=== PATIENT | female | born 1985 | race Caucasian/White ===

== ENCOUNTER 2024-01-22 06:49 | Inpatient (IN) ==
[2024-01-22] MEDS ORDERED: LIDOCAINE 1% LOCAL 20 ML VIAL INFIL PRN (07:28)
[2024-01-22] MEDS ORDERED: OXYTOCIN 30 UNITS/NSS 30 UNITS/500 ML BAG IV PRN ×2 (07:28→18:49)
--- NOTE | 2024-01-22 07:36 | Labor Progress Brief Note ---
Date of Service January 22, 2024 Physical Exam Genitourinary: Manual OB Exam: + cervical dilation 1 cm, + cervical effacement 80%, + station high and + amniotic fluid clear OB Exam Monitor Tracing: + external FHT monitor used, + external uterine monitor used, + category I and + normal FHT variability Results & Data Vital Signs (Past 12 Hours) Vital Signs Pulse BP 01/22/24 07:20 90 119/80
--- NOTE | 2024-01-22 07:40 | History & Physical Report ---
Date of Service January 22, 2024 Assessment & Plan (1) Term : Plan: admit to labor and delivery History of Present Illness Chief Complaint: ruptured membranes Primary Care Provider: Sally Hogan MD 38 F P0020 at 38.6 with SROM and onset of labor this morning. GBS is negative. Allergies Allergy/AdvReac Type Severity Reaction Status Date / Time No Known Allergies Allergy Unverified 01/21/24 23:31 Home Medications Medication Instructions Recorded Confirmed Type Lactobacillus comb cap PO 01/21/24 History no.3-ADF-fuxbthfqcw 300 million cell-250 mg capsule (Probiotic and Acidophilus) blood sugar diagnostic (OneTouch 01/21/24 01/21/24 History Verio test strips) blood-glucose meter (OneTouch 01/21/24 01/21/24 History Verio Flex Meter) escitalopram oxalate 10 mg tablet 10 mg PO DAILY 01/21/24 01/21/24 History (Lexapro) ferrous sulfate 325 mg (65 mg 325 mg PO DAILY 01/21/24 01/21/24 History iron) tablet lancets 30 gauge 01/21/24 01/21/24 History vit no.95-ferrous 1 tab PO DAILY 01/21/24 01/21/24 History fumarate 28 mg-folic acid 800 mcg tablet () Patient History Medical History ASCUS with positive high risk HPV cervical Dysplasia of cervix Anemia Gestational diabetes mellitus (GDM) Depression Ectopic Surgical History History of salpingectomy Social History Smoking Status: Former smoker Tobacco Type: E-cigarettes / Vaping Second Hand Exposure: No; Hx Alcohol Use: No Hx Substance Use: No Preferred Language: Chinese Communication Ability: Effective Gastrointestinal Technician Required: No Beliefs That Will Affect Care: None marital status: Current Living Situation: Spouse Current Living Situation Comment: Zhang- Other Information That Helps Us Care for You: No Feels Safe at Home: Yes Assistive Devices: Glasses OB History 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 ectopic salpingectomy Review of Systems All systems reviewed & are unremarkable except as noted in HPI & below Physical Exam Constitutional: WD/WN, vitals as above Cardiovascular: Rate/Rhythm: regular rate and regular rhythm Musculoskeletal: Extremities: extremities normal to inspection Skin: no rashes, warm and dry Neurologic: patellar DTR's 2+ bilat, sensation intact Psychiatric: A+Ox3, euthymic affect Genitourinary: no vaginal lesions, no adnexal mass OB Exam Abdomen: + fundal height and + vertex Manual OB Exam: + cervical dilation 1 cm, + cervical effacement 80%, + station high and + amniotic fluid clear OB Exam Monitor Tracing: + external FHT monitor used, + external uterine monitor used, + category I and + normal FHT variability Results & Data Vital Signs (Past 12 Hours) Vital Signs Pulse BP 01/22/24 07:20 90 119/80 Code Status & VTE Plan VTE Prophylaxis Plan VTE Prophylaxis will be ordered: No Monitoring External Monitor Cat 1
--- NOTE | 2024-01-22 08:20 | Obstetrical Progress Note ---
Date of Service January 22, 2024 Assessment & Plan Admission and Anticipated Discharge Date Admission Date: January 22, 2024 Subjective Patient is a 38 yo at 38.6 wks, admitted by Dr Rivas for SROM at 03:30 am, clear Feels ctxs q 3-4 min, no very painful Her cevix was checked and was 1cm/ 80%/-3, I performed bed side US: Vertex, placenta posterior I reviewed her records and comfirmed with her GDMA1, diet controlled GDM Depression, on Lexapro, stable AMA h/o ectopic GBS neg No h/o genital HSV, Chlamydia, Gonorrhea FHR categ I [place] ctxs q 3-4 min Discussed the findings and recommended Oxytocin per protocol Patient agrees with plan Results & Data Vital Signs (Past 12 Hours) Vital Signs Temp Pulse Resp BP 01/22/24 07:29 36.9 C 18 119/80 01/22/24 07:20 90 119/80
[2024-01-22] MEDS: LACTATED RINGER'S 1,000 ML IV PRN (08:35)
[2024-01-22] MEDS: OXYTOCIN 30 UNITS/NSS 30 UNITS/500 ML BAG IV PRN (08:36)
[2024-01-22 08:45] LABS: Hemoglobin 12.7 g/dl (12.0-16.0); Mean Corpuscular Hemoglobin 30.3 pg (25.0-34.0); Mean Corpuscular Hgb Conc 33.4 g/dL (32.0-36.0); Mean Corpuscular Volume 90.7 fL (80.0-100.0); Mean Platelet Volume 9.1 fL (9.4-12.4); Platelet Count 255 K/uL (130-400); RDW Coefficient of Variation 14.3 % (11.5-14.5); Red Blood Count 4.19 M/uL (4.20-5.40)
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
--- OUTSIDE RECORDS SUMMARY | 2024-01-22 10:32 | External Medical Summary | Summary of Care ---
Author Name Unknown Organization [facility] Address [address] [facility] [place] [address] Phone [phone] Care Team Providers Care Outsewer Name Role Phone Unavailable Primary Care Provider Unavailabl e Encounter Details Date Type Department Care Team (Late st Contact Info) Description 01/17/2024 Telephone [facility]necology/[facility]stetrics[facility] [address] [facility] [place] [address] Lamont Pérez MD [address] [place] [phone] Allergies Active Allergy Reactions Criticality Noted Date Comments No Known Drug Allergy 08/08/2010 documented as of this encounter (statuses as of 01/17/2024) Medications Medication Sig Dispensed Refills Start Date [...] the morning. 90 Tablet 1 08/03/2023 Active [employer] Flex System w/Device KitIndications:Diet controlled gestational diabetes mellitus (GDM) in third trimester Use to test blood sugars 4 times daily (fasting, 1 hour after breakfast, lunch, and dinner) 1 Kit 0 11/13/2023 Active [employer] Verio In Vitro Strip (Glucose Blood)Indications:Diet controlled gestational diabetes mellitus (GDM) in third trimester Use to test blood sugars 4 times daily (fasting, 1 hour after breakfast, lunch, and dinner) 125 Strip 6 11/13/2023 Active [employer] Delica Lancets 30GIndications:Diet controlled gestational diabetes mellitus [...] as of this encounter (statuses as of 01/17/2024) Active Problems Problem Noted Date Diagnosed Date [...] 01/13/24: RPM reviewed; stable. Continue diet control. Last [...] Recommend nutrition consult with RDN (Registered Dietitian Telecom Sales Consultant). Lifestyle changes are also indicated including optimizing [...] magm Adjustment disorder with depressed mood 08/08/20 ADVANCE DIRECTIVE INFORMATION 01/07/2006 Overview: Not applicable (under age of 18) Severe Acne 09/30/2002 Overview: OCP, Tazorac .1% gel once a day Primary Care Provider could refill this medication if Acne is stable but not for use during . Estimated Date of Delivery Comme nts Yes 01/30/2024 Based on Ultraso und documented as of this encounter (statuses as of 01/17/2024) Resolved Problems Problem Noted Date Diagnosed Date [...] as of this encounter (statuses as of 01/17/2024) Immunizations Name Administration Dates Next Due Covid-19 [...] money to buy more. Never true 06/17/20 23 Within the past 12 months, t he food you bought just didn't last and you didn't have money to get more. Never true 06/17/2023 [place] Depression Scale Answer Date Recorded [place] Depression Scale Total 7 01/08/2024 The thought [...] encounter Miscellaneous Notes * Telephone Encounter - Chica Ordoñez RN - 01/17/2024 12:20 PM EDT T/C from pt requesting to schedule 39 week appt. Requesting to be seen on 01/23/2024 d/t being 39 weeks that day and she would like her membranes stripped at her appt. No appts found to suit pt. Please call pt to assist. Jacob's pt. documented in this encounter Plan of Treatment Upcoming Encounters Date Type Department Care Team (Late st Contact Info) Description 01/28/2024 10:15 AM EDT Office Visit Gynecology/Obstetrics [facility] [address] [place] [address] Mame Pham CRNP [address] [place] [address] 02/25/2024 12:40 PM EDT Office Visit [facility] [place], [place] [address] [place] [phone] Milana Marques PA-C [address] [place] [address] Health Maintenance Due Date Last Done Comments Depression Screening 08/05/2021 08/05/2020 COVID-19 Vaccine (2022- season) 2023 01/19/2021 Diabetes Screening 06/12/2026 06/12/2023, [...]
--- OUTSIDE RECORDS SUMMARY | 2024-01-22 10:32 | External Medical Summary | Summary of Care ---
Author Name Unknown Organization [facility] Address [address] [facility] [place] [address] Phone [phone] Care Team Providers Care Clinical Academic Allergist Name Role Phone Unavailable Primary Care Provider Unavailabl e Reason for Visit * Reason Onset Date Comments Appointment 01/17/2024 Encounter Details Date Type Department Care Team (Late st Contact Info) Description 01/17/2024 Telephone Gynecology/Obstetrics, [place] [address] [facility] [place] [address] Lamont Pérez MD [address] [place] [address] Appointment Allergies Active Allergy Reactions Criticality Noted Date [...] the morning. 90 Tablet 1 08/03/2023 Active [employer] Verio Flex System w/Device KitIndications:Diet controlled gestational diabetes mellitus (GDM) in third trimester Use to test blood sugars 4 times daily (fasting, 1 hour after breakfast, lunch, and dinner) 1 Kit 0 11/13/2023 Active [employer] Verio In Vitro Strip (Glucose Blood)Indications:Diet controlled gestational diabetes mellitus (GDM) in third trimester Use to test blood sugars 4 times daily (fasting, 1 hour after breakfast, lunch, and dinner) 125 Strip 6 11/13/2023 Active [employer] Delica Lancets 30GIndications:Diet controlled gestational diabetes mellitus [...] Recommend nutrition consult with RDN (Registered Dietitian Industrial Registered Nurse). Lifestyle changes are also indicated including optimizing [...] Next Due Covid-19 Ad26, Single Dose (Varsha/J&J) 01/19/2021 DTaP Dipth/Tet/Acell Pertussis (Infanrix), Peds 04/26/1993,05/31/1989,04/27/1988,1987,1987 HIB PRP-T, 4 dose (ActHib) 05/31/1989 Hepatitis B, 0-19 yrs 08/08/1998,03/07/1998,04/0 03/1998 MMR - Measles/Mumps/Rubella Vaccine 04/26/1993,0 02/15/1989 OPV - Polio Virus Vaccine (Oral) 993,05/31/1989,04/27/1988,1987,1987 PPD 10/26/1988 Seasonal Influenza, PF, 6 M & above, IM , (FluLaval or Fluzone) 08/13/2023,08/07/2021,08/05/2020 Seasonal Influenza, Split, I IV3, With Preserve, Inj 10/18/2006 TD - Tetanus/Diptheria (ADULT) 11/07/1998 TD, Preservative Free 08/05/2020 TDAP (age 10 [...] money to get more. Never true 06/17/2023 [place] Depression Scale Answer Date Recorded [place] Depression Scale Total 7 01/08/2024 The thought [...] encounter Miscellaneous Notes * Telephone Encounter - Marcella Bergman, MED ASSIST - 01/21/2024 8:52 AM EDT Appt already scheduled for 01/22. * Telephone Encounter - Skye Ghotra OSA - 01/21/2024 8:17 AM EDT Marcella, look into this. I don't see anything available, maybe wait to see if we have a cancellation. I will keep watch also. * Telephone Encounter - Chica Ordoñez RN [...] EDT Office Visit Gynecology/Obstetrics [facility] [address] [place] [address] Mame Pham CRNP [address] [place] [address] 01/28/2024 10:15 AM EDT Office Visit Gynecology/Obstetrics [facility] [address] [place] [address] Mame Pham CRNP [address] [place] [address] 02/25/2024 12:40 PM EDT Office Visit [facility] [address] [facility] [place] [phone] Milana Marques PA-C [address] [place] [address] Health Maintenance Due Date Last Done Comments Depression Screening 08/05/2021 08/05/2020 COVID-19 Vaccine (2 - 2022- season) 2023 01/19/2021 Diabetes Screening 06/12/2026 06/12/2023, [...]
--- OUTSIDE RECORDS SUMMARY | 2024-01-22 10:32 | External Medical Summary | Summary of Care ---
Author Name Unknown Organization [facility] Address [address] [facility] [address] [place] [address] Phone [phone] Care Team Providers Care Stitcher Operator Name Role Phone Unavailable Primary Care Provider Unavailabl e Reason for Visit * Reason Onset Date Comments Appointment 01/17/2024 Encounter Details Date Type Department Care Team (Late st Contact Info) Description 01/17/2024 Telephone Gynecology/Obstetrics, [place] [address] [facility] [place] [address] Lamont Pérez MD [address] [place] [address] Appointment Allergies Active Allergy Reactions Criticality Noted [...] the morning. 90 Tablet 1 08/03/2023 Active ViblioTov2tel Verio Flex System w/Device KitIndications:Diet controlled gestational [...] and dinner) 125 Strip 6 11/13/2023 Active ViblioTouch Delica Lancets 30GIndications:Diet controlled gestational diabetes mellitus [...] Recommend nutrition consult with RDN (Registered Dietitian Regulatory Affairs Coordinator). Lifestyle changes are also indicated including optimizing [...] money to get more. Never true 06/17/2023 [place] Depression Scale Answer Date Recorded [place] Depression Scale Total 7 01/08/2024 The thought [...] encounter Miscellaneous Notes * Telephone Encounter - Skye Ghotra OSA - 01/21/2024 8:17 AM EDT Marcella, look into this. I don't see anything available, maybe wait to see if we have a cancellation. I will keep watch also. * Telephone Encounter - Chica Ordoñez, RN - 01/17/2024 12:20 PM EDT T/C [...] Gynecology/Obstetrics Ermias Samaniego [address] [place] [address] Mame Pham CRNP 132 [place] [address] 01/28/2024 10:15 AM EDT Office Visit Gynecology/Obstetrics Ermias Samaniego [address] [place] [address] Mame Pham CRNP [address] [place] [address] 02/25/2024 12:40 PM EDT Office Visit [facility] [place] [address] [place] [address] Milana Marques PA-C [address] [place] [phone] Health Maintenance Due Date Last Done Comments Depression Screening 08/05/2021 08/05/2020 COVID-19 Vaccine (2 - 3-24 season) 2023 01/19/2021 Diabetes Screening 06/12/2026 06/12/2023, [...]
--- OUTSIDE RECORDS SUMMARY | 2024-01-22 10:33 | External Medical Summary ---
Author Name Unknown Address Unknown Organization K01:[facility] [place] [address] [place] [address] Laboratory Report Ordering Provider Test Date Status RANDY GRADY 01/08/2024 11:56:04 Final Observation Date Value Abnormality Reference (Units ) Status Streptococcus agalactiae DNA [Presence] in Specimen by WINSTON with probe detection 01/08/2024 11:56:04 Negative Negative Final No Group B Streptococcus det ected by culture-enhanced PCR (amplified probe).
The collection of vaginal/rectal swab specimen combinations (FDA approved specimen type) is optimal for the detection of Group B Streptococcus. Single source collection (vaginal only or rectal only) or alternate specimen sources may lead to false negative results. Performing Location [facility] [place] [address] [place] [address]
--- OUTSIDE RECORDS SUMMARY | 2024-01-22 10:33 | External Medical Summary ---
Author Name Unknown Address Unknown Organization K0G:[facility] - [address] [place] [address] Laboratory Report Ordering Provider Test Date Status JANESSA,REINA 01/01/2024 15:16:51 Final Observation Date Value Abnormality Reference (Units ) Status Premature Rupture Membrane risk 01/01/2024 15:16:51 Negative Negative Final Performing Location [facility] - [address] [place] [address]
--- OUTSIDE RECORDS SUMMARY | 2024-01-22 10:33 | External Medical Summary | Summary of Care ---
Author Name Unknown Organization [facility] Address [address] [facility] [address] Phone [phone] Care Team Providers Care Logistical Engineer Name Role Phone Unavailable Primary Care Provider Unavailabl e Reason for Visit * Reason Comments DSMT Follow-Up Encounter Details Date Type Department Care Team (Late st Contact Info) Description 01/16/2024 1:00 PM EDT Telemedicine Jorje Rankin [address] [place] [address] Zoila Black, LIBRADO [address] [place] [address] Diet controlled gestational diabetes mellitus (GDM) in third trimester*; Supervision of high risk in third trimester; Obesity in , antepartum Allergies Active Allergy Reactions Criticality Noted Date Comments No Known Drug Allergy 08/08/2010 documented as of this encounter (statuses as of 01/16/2024) Medications Medication Sig Dispensed Refills Start Date [...] the morning. 90 Tablet 1 08/03/2023 Active Robosoft Technologiesio Flex System w/Device KitIndications:Diet controlled gestational diabetes mellitus (GDM) in third trimester Use to test blood sugars 4 times daily (fasting, 1 hour after breakfast, lunch, and dinner) 1 Kit 0 11/13/2023 Active Tang SongTouch TRUE linkswear In Vitro Strip (Glucose Blood)Indications:Diet controlled gestational diabetes mellitus (GDM) in third trimester Use to test blood sugars 4 times daily (fasting, 1 hour after breakfast, lunch, and dinner) 125 Strip 6 11/13/2023 Active Nexgence DelGood Eggs Lancets 30GIndications:Diet controlled gestational diabetes mellitus (GDM) [...] as of this encounter (statuses as of 01/16/2024) Active Problems Problem Noted Date Diagnosed Date [...] Recommend nutrition consult with RDN (Registered Dietitian Health And Safety Representative). Lifestyle changes are also indicated including optimizing [...] as of this encounter (statuses as of 01/16/2024) Resolved Problems Problem Noted Date Diagnosed Date [...] as of this encounter (statuses as of 01/16/2024) Immunizations Name Administration Dates Next Due Covid-19 [...] money to get more. Never true 06/17/2023 [place] Depression Scale Answer Date Recorded [place] Depression Scale Total 7 01/08/2024 The thought [...] on file documented as of this encounter Patient Instructions * Patient Instructions* Zoila Black RDN - 01/16/2024 1:22 PM EDT Participant will continue with present meal regimen and present schedule of glucose checks as doing. documented in this encounter Progress Notes * Zoila Black RDN - 01/16/2024 1:02 PM EDT DIABETES SELF-MANAGEMENT TRAINING/FOLLOW UP NOTE Name: Lisseth Longoria Date: 01/16/2024 Patient location: HOME. I was not in a hospital or clinic location. After connecting through Enteloo, patient was verified with two unique identifiers. Patient (or authorized legal outside energy sales representatives) was then informed that this was a Telemedicine visit and being conducted confidentially over secure lines. Methods to assure confidentiality were taken. Patient acknowledged consent and understanding of privacy and security of the Telemedicine visit. The patient agreed to participate. Last order of DIABETES MANAGEMENT EDUCATION (ADA) REFERRAL was found on 11/13/2023 from Refill on 11/13/2023 No order of CLINICAL NUTRITION AND DIABETES EDUCATION ANNUAL RENEWAL is found. No order of PEDIATRIC DIABETES MANAGEMENT EDUCATION (ADA) REFERRAL OP is found. ADA referral in place? Yes Participant scheduled for 1:1 training due to lack of classes scheduled within 2 months of appointment. What diabetes concerns and/or barriers to care would you like to discuss in your appointment: none Topics from last visit to attempt to cover today: none Was behavior objective from last visit met at least 80% of the time: Nutrition: Yes Psychosocial Screening: Lately have you been feeling down, depressed or hopeless most of the day? No Sleep Health: Addressed - How many hours are you sleeping during the night? 8 hours Do you have difficulty falling or staying asleep? Yes, staying asleep sometimes per participant Do you snore? Yes Are you waking up during the night with symptoms of low glucose levels (shaky, sweaty, nightmares)?No Are you waking up during the night to urinate frequently? Yes Diabetes Medications: None Monitoring blood glucose, interpreting and using results Self-Monitoring Blood Glucose Source of Information: Participant verbally reviewed from memory Frequency of tests: daily FBS 70's, highest at 77-78 After breakfast 130 After lunch ~110 After dinner 89-90's Hypoglycemia?: No Diet: Breakfast: yogurt, berries, high-protein granola, black coffee, water Snacks: protein or apple with PB Lunch: salad with chicken or tuna and whole grain crackers, or tuna salad or chicken sandwich on whole grain bread, raw carrots, water Snacks: protein bar or trail mix with dried cranberries and nuts Dinner: salmon or chicken, vegetables-green beans, water Snacks: hot plain raspberry leaf tea, protein bar or high-protein, low-carb ice cream bar Drinks: water, coffee in AM-plenty of fluids Restaurant meals: once or twice a week Weight management review: Wt Readings from Last 6 Encounters: 01/14/24 83 kg (183 lb) 01/08/24 84.4 kg (186 lb) 12/18/23 83.5 kg (184 lb) 12/05/23 83.3 kg (183 lb 9.6 oz) 11/21/23 83.5 kg (184 lb) 11/08/23 83.9 kg (185 lb) Weight changes since last visit: stable Physical Activity: Walking, going up and stairs and 5 minutes of squatting daily ADA STANDARDS OF CARE/BUNDLE MEASURES Diabetes Bundle / Standards of Care: Gestational Diabetes Participant Therapy Management Plan: Hypertension: BP Readings from Last 3 Encounters: 01/14/24 98/74 01/08/24 104/62 01/01/24 102/64 Gestational Diabetes Participant, being monitored by PSYCHOLOGICAL OPERATIONS. Dyslipidemia: Lab Results Component Value Date/Time LDL CHOLESTEROL (CALCULATED) - [facility] 116 (H) 07/04/2010 10:08 AM No components found for: "[id number]" Gestational Diabetes Mellitus Participant Kidney function review: Lab Results Component Value Date/Time ESTIMATED GLOMERULAR FILTRATION RATE - [facility] >90 11/12/2023 07:35 AM ESTIMATED GLOMERULAR FILTRATION RATE - [facility] >60.0 11/04/2020 08:38 AM ESTIMATED GLOMERULAR FILTRATION RATE - [facility] >60.0 07/04/2010 10:08 AM No results found for: "ALBUMIN / CREATININE RATIO", "ALBUMIN / CREATININE RATIO, URINE - [facility]" No results found for: "PROTEIN/ CREATININE RATIO", "PROTEIN/ CREATININE RATIO, URINE - [facility]" Gestational Diabetes Mellitus Participant DSMT/Diabetes MNT Diagnosis: Food and nutrition related knowledge deficit related to previous predicted limited knowledge of recommended diet as evidenced by previous encounter. DSMT Follow-up Assessment of Content Areas: Choose the answer that represents the participant's competency in ONLY topics assessed from previous visit and addressed today. Areas taught today must correlate with intervention. If content area not assessed and/or intervened today, it will be deferred to future session. Incorporating nutrition management into lifestyle: Comprehends king points (3) Incorporating physical activity into lifestyle: Comprehends king points (3) Monitoring blood glucose, interpreting and using results: Comprehends king points (3) Prevention, detection, and treatment of acute complications: Comprehends king points (3) Developing strategies to promote health/change behavior: Comprehends king points (3) DSMT/ Diabetes MNT intervention: Nutrition: Participant notes no issues with eating consistent meals and snacks. States she is trying to increase low-carb vegetables throughout the day in her meal pattern. States she is following the 8-10 hour rule between evening snack and breakfast the next day. States she has no problem gettingin between meal snacks when working. Acute Complications: Participant has no questions about Hypoglycemia handout forwarded to her following last GDM sessions (12/19/2023). She denies symptoms of hypoglycemia when FBS levels are in 70's. Participant Selected Behavioral Objective: Promoting health changes: To improve blood glucose control, I will continue with present meal regimen and present schedule of glucose checks as doing. Recommended Medication Changes: No changes. Education materials given to participant/caregiver and reviewed during today's visit: None given today Diabetes Self-Management Support:: Apps/Smart Phone Technology: Other (must add specific details): Current Health karie Possible Future Topics: Content areas that were not assessed in prior visits: All content areas have been assessed. Time Spent With Patient: Time in: 1:01 PM Time out: 1:16 PM Billing: MNT: 15 Minutes (8-22) Plan for Return: none. Participant declines offer of follow-up appointment. Encouraged pt to contact me via My G if any questions or concerns arise. All [facility] providers within the system are able to see [place] [employer] education and outcomes within the participant's electronic medical record. Zoila Black RDN, NUTRITION SERVICES [facility] Diabetes Care and Wholesale Parts Salesperson documented in this encounter Plan of Treatment Upcoming Encounters Date Type Department Care Team (Late st Contact Info) Description 01/21/2024 11:00 AM EDT Office Visit Gynecology/Obstetrics [facility] [address] [place] [address] Hannah Pal MD [address] [facility] [place] [address] 01/28/2024 10:15 AM EDT Office Visit Gynecology/Obstetrics [facility] [address] [place] [address] Mame Pham CRNP [address] [place] [address] 02/25/2024 12:40 PM EDT Office Visit [facility] [place] [address] [place] [phone] Milana Marques PA-C [facility] [place] [address] Health Maintenance Due Date Last Done Comments [...] Not on filedocumented as of this encounter Visit Diagnoses Diagnosis Diet controlled gestational diabetes mellitus (GDM) in third trimester- Primary Supervision of high risk in third trimester Unspecified high-risk Obesity in , antepartum Obesity complicating , childbirth, or the puerperium, antepartum condition or complication documented in this encounter Advance Directives Latest Code Status on File Code Status Date Activated Date Inactivated Comments Full Code 06/08/2021 11:52 PM 06/09/2021 5:44 AM This order reflects the patients wishes and were consensually agreed upon. Question Answer Comments Discussion of Advance Directives occurred with: Not Discussed
--- OUTSIDE RECORDS SUMMARY | 2024-01-22 10:33 | External Medical Summary | Summary of Care ---
Author Name Unknown Organization [facility] Address [address] [facility] [place] [address] Phone [phone] Care Team Providers Care Drying Supervisor Name Role Phone Unavailable Primary Care Provider Unavailabl e Reason for Visit * Reason Comments Return Visit Encounter Details Date Type Department Care Team (Late st Contact Info) Description 01/08/2024 11:30 AM EDT Office Visit Gynecology/Obstetric s Irishoang Samaniego [address] [place] [address] Naima Xavier CRNP [address] [place] [address] Supervision of high risk in third trimester*; Obesity in , antepartum; Depression complicating , antepartum; in third trimester with history of ectopic ; Multigravida of advanced maternal age in third trimester; COVID-19 affecting , antepartum; Diet controlled gestational diabetes mellitus (GDM) in third trimester; Antepartum anemia complicating Allergies Active Allergy Reactions Criticality Noted Date Comments No Known Drug Allergy 08/08/2010 documented as of this encounter (statuses as of 01/08/2024) Medications Medication Sig Dispensed Refills Start Date [...] the morning. 90 Tablet 1 08/03/2023 Active RedkneeTouch Verio Flex System w/Device KitIndications:Diet controlled gestational diabetes mellitus (GDM) in third trimester Use to test blood sugars 4 times daily (fasting, 1 hour after breakfast, lunch, and dinner) 1 Kit 0 11/13/2023 Active RedkneeToThuuz Verio In Vitro Strip (Glucose Blood)Indications:Diet controlled gestational diabetes mellitus (GDM) in third trimester Use to test blood sugars 4 times daily (fasting, 1 hour after breakfast, lunch, and dinner) 125 Strip 6 11/13/2023 Active RedkneeTouch Delica Lancets 30GIndications:Diet controlled gestational diabetes mellitus [...] as of this encounter (statuses as of 01/08/2024) Active Problems Problem Noted Date Diagnosed Date [...] Will review again next week 12/30/23-stable 01/06/24-stable Last Assessment & Plan: CONSIDERATIONS: Reviewed etiology [...] Recommend nutrition consult with RDN (Registered Dietitian Electron Beam Welder). Lifestyle changes are also indicated including optimizing [...] as of this encounter (statuses as of 01/08/2024) Resolved Problems Problem Noted Date Diagnosed Date [...] as of this encounter (statuses as of 01/08/2024) Immunizations Name Administration Dates Next Due Covid-19 [...] money to get more. Never true 06/17/2023 [place] Depression Scale Answer Date Recorded [place] Depression Scale Total 7 01/08/2024 The thought [...] on file documented as of this encounter Last Filed Vital Signs Vital Sign Reading Time Taken Comments Blood Pressure 104/62 01/08/2024 11:35 AM EDT Pulse - - Temperature - - Respiratory Rate - - Oxygen Saturation - - Inhaled Oxygen Concentration - - Weight 84.4 kg (186 lb) 01/08/2024 11:35 AM EDT Height - - Body Mass Index 36.33 01/01/2024 2:54 PM EDT documented in this encounter Progress Notes * Naima Xavier CRNP - 01/08/2024 11:36 AM EDT 36w6d Working with [facility] for GDM management. Glucose readings WNL. Baby is active. Some ctx, taper out. No bleeding/leaking. Discussed recommendation for IOL by 41 weeks given GDM. She requests an induction in the 39th week - aware that this is not medically indicated and she may be rescheduled for more urgent inductions. Had a unilateral salpingectomy; desires another for contraception, does not desire future . GBS today, return in 1 week. Bobbin Fixer Documentation Provider requested public records researcher. Name of public records researcher: SAVAGE Rosado LPN * Lashell Miller LPN - 01/08/2024 11:34 AM EDT 36w6d Denies vaginal bleeding/rom + movement No new concerns documented in this encounter Plan of Treatment Upcoming Encounters Date Type Department Care Team (Late st Contact Info) Description 01/14/2024 9:15 AM EDT Office Visit Gynecology/Obstetrics Ermias Coulters [address] [place] [address] Mame Pham CRNP [address] [place] [address] 01/16/2024 1:00 PM EDT Telemedicine Jorje Rankin [address] [place] [address] Zoila Black RDN [address] [place] [address] 01/21/2024 11:00 AM EDT Office Visit Gynecology/Obstetrics Iris Samaniego [address] [place] [address] Hannah Pal MD [address] [place] [address] [place] [address] 01/28/2024 10:15 AM EDT [facility] [address] [place] [address] Mame Pham CRNP [address] [place] [address] 02/25/2024 12:40 PM EDT Office Visit [facility], [place] [address] [place] [phone] Milana Marques PA-C [facility] [place] [phone] Pending Results Name Type Priority Associated Diagnoses Date /Time GROUP B STREP CULTURE/PCR Lab Routine Supervision of high risk in third trimester 01/08/2024 11:56 AM EDT Health Maintenance Due Date Last Done Comments [...] as of this encounter Visit Diagnoses Diagnosis Supervision of high risk in third trimester- Primary Unspecified high-risk Obesity in , antepartum Obesity complicating , childbirth, or the puerperium, antepartum condition or complication Depression complicating , antepartum Mental disorders of mother, antepartum in third trimester with history of ectopic Multigravida of advanced maternal age in third trimester COVID-19 affecting , antepartum Diet controlled gestational diabetes mellitus (GDM) in third trimester Antepartum anemia complicating Anemia, antepartum documented in this encounter Advance Directives Latest Code Status on File Code Status Date Activated Date Inactivated Comments Full Code 06/08/2021 11:52 PM 06/09/2021 5:44 AM This order reflects the patients wishes and were consensually agreed upon. Question Answer Comments Discussion of Advance Directives occurred with: Not Discussed
--- OUTSIDE RECORDS SUMMARY | 2024-01-22 10:33 | External Medical Summary | Summary of Care ---
Author Name Unknown Organization [facility] Address [address] [facility] [place] [address] Phone [phone] Care Team Providers Care Roof Shingler Name Role Phone Unavailable Primary Care Provider Unavailabl e Reason for Visit * Reason Comments Return Visit Encounter Details Date Type Department Care Team (Late st Contact Info) Description 01/08/2024 11:30 AM EDT Office Visit Gynecology/Obstetric s Irishoang Samaniego [address] [place] [address] Naima Xavier CRNP [address] [place] [address] Supervision of high risk in third trimester*; [...] the morning. 90 Tablet 1 08/03/2023 Active ApprissTouch Verio Flex System w/Device KitIndications:Diet controlled gestational diabetes mellitus (GDM) in third trimester Use to test blood sugars 4 times daily (fasting, 1 hour after breakfast, lunch, and dinner) 1 Kit 0 11/13/2023 Active ApprissToMoovly Verio In Vitro Strip (Glucose Blood)Indications:Diet controlled gestational diabetes mellitus (GDM) in third trimester Use to test blood sugars 4 times daily (fasting, 1 hour after breakfast, lunch, and dinner) 125 Strip 6 11/13/2023 Active ApprissTouch Delica Lancets 30GIndications:Diet controlled gestational diabetes mellitus [...] Recommend nutrition consult with RDN (Registered Dietitian Director Data Architecture). Lifestyle changes are also indicated including optimizing [...] money to get more. Never true 06/17/2023 [place] Depression Scale Answer Date Recorded [place] Depression Scale Total 7 01/08/2024 The thought [...] . GBS today, return in 1 week. Gas Appliance Servicer Documentation Provider requested metal caster. Name of metal caster: SAVAGE Rosado LPN * Lashell Miller LPN - 01/08/2024 11:34 AM EDT 36w6d Denies vaginal bleeding/rom + movement No new concerns documented in this encounter Plan of Treatment Upcoming Encounters Date Type Department Care Team (Late st Contact Info) Description 01/14/2024 9:15 AM EDT Office Visit Gynecology/Obstetrics Ermias Coulters [address] [place] [address] Mame Pham CRNP [address] [place] [address] 01/16/2024 1:00 PM EDT Telemedicine Jorje Rankin [address] [place] [address] Zoila Black RDN [address] [place] [address] 01/21/2024 11:00 AM EDT Office Visit Gynecology/Obstetrics Iris Samaniego [address] [place] [address] Hannah Pal MD [address] [place] [address] [place] [address] 01/28/2024 10:15 AM EDT [facility] [address] [place] [address] Mame Pham CRNP [address] [place] [address] 02/25/2024 12:40 PM EDT Office Visit [facility], [place] [address] [place] [phone] Milana Marques PA-C [facility] [place] [phone] Pending Results Name Type Priority Associated Diagnoses [...]
--- OUTSIDE RECORDS SUMMARY | 2024-01-22 10:33 | External Medical Summary | Summary of Care ---
Author Name Unknown Organization [facility] Address [address] [address] Phone [phone] Care Team Providers Care Procurement Services Manager Name Role Phone Unavailable Primary Care Provider Unavailabl e Reason for Visit * Reason Comments Return Visit Encounter Details Date Type Department Care Team (Late st Contact Info) Description 01/01/2024 2:45 PM EDT Office Visit Gynecology/Obstetric s Ermias Samaniego [address] [place] [address] Mame Pham CRNP [address] [place] [address] Supervision of high risk in third trimester*; Obesity in , antepartum; Depression complicating , antepartum; with history of ectopic , antepartum; Multigravida of advanced maternal age in third trimester; COVID-19 affecting , antepartum; Diet controlled gestational diabetes mellitus (GDM) in third trimester; Antepartum anemia complicating Allergies Active Allergy Reactions Criticality Noted Date Comments No Known Drug Allergy 08/08/2010 documented as of this encounter (statuses as of 01/01/2024) Medications Medication Sig Dispensed Refills Start Date [...] the morning. 90 Tablet 1 08/03/2023 Active HengZhiTouch Verio Flex System w/Device KitIndications:Diet controlled gestational diabetes mellitus (GDM) in third trimester Use to test blood sugars 4 times daily (fasting, 1 hour after breakfast, lunch, and dinner) 1 Kit 0 11/13/2023 Active HengZhiTouch Verio In Vitro Strip (Glucose Blood)Indications:Diet controlled gestational diabetes mellitus (GDM) in third trimester Use to test blood sugars 4 times daily (fasting, 1 hour after breakfast, lunch, and dinner) 125 Strip 6 11/13/2023 Active HengZhiTouch Delica Lancets 30GIndications:Diet controlled gestational diabetes mellitus [...] as of this encounter (statuses as of 01/01/2024) Active Problems Problem Noted Date Diagnosed Date [...] meals. Will review again next week 12/30/23-stable Last Assessment & Plan: CONSIDERATIONS: Reviewed etiology [...] Recommend nutrition consult with RDN (Registered Dietitian Physical Medicine Specialist). Lifestyle changes are also indicated including optimizing [...] as of this encounter (statuses as of 01/01/2024) Resolved Problems Problem Noted Date Diagnosed Date [...] as of this encounter (statuses as of 01/01/2024) Immunizations Name Administration Dates Next Due Covid-19 [...] money to get more. Never true 06/17/2023 [place] Depression Scale Answer Date Recorded [place] Depression Scale Total 7 11/21/2023 The thought of harming myself has occurred to me . Never 11/21/2023 Estimated Date of Delivery Comme nts Yes [...] Sign Reading Time Taken Comments Blood Pressure 102/64 01/01/2024 2:54 PM EDT Pulse - - Temperature - - Respiratory Rate - - Oxygen Saturation - - Inhaled Oxygen Concentration - - Weight - - Height 152.4 cm (5') 01/01/2024 2:54 PM EDT Body Mass Index - - documented in this encounter Progress Notes * Mame Pham CRNP - 01/01/2024 3:19 PM EDT 35w6d Here for acute visit. Messaged this morning with c/o contractions every 15 minutes and small amountof fluid leaking. Contractions lasted a few hours, no longer present. Has not had to wear a pad forthe leaking, reports this continues to be a small amount. Baby is active. Denies bleeding. ROM+ today. Uncertain position, was breech 3 weeks ago. Will get u/s for position check. Feltmaker Documentation Provider requested linux system admin. Name of linux system admin: SAVAGE Little * Britany Mendoza LPN - 01/01/2024 2:54 PM EDT 35w6d Leaking since this morning Ctxs every 15 mins this morning have tapered down this afternoon documented in this encounter Plan of Treatment Upcoming Encounters Date Type Department Care Team (Late st Contact Info) Description 01/02/2024 9:00 AM EDT [place] [address] [place] [address] 01/03/2024 11:30 AM EDT Office Visit Gynecology/Obstetrics [facility] [address] [place] [address] Katie Hong PA-C [address] [place] [address] 01/08/2024 11:30 AM EDT Office Visit Gynecology/Obstetrics [facility] [address] [place] [address] Naima Xavier CRNP [address] [place] [address] 01/14/2024 9:15 AM EDT Office Visit Gynecology/Obstetrics [facility] [address] [place] [address] Mame Pham CRNP [address] [place] [address] 01/16/2024 1:00 PM EDT Telemedicine [facility], [facility] [address] [facility] [place] [address] Zoila Black RDN [address] [place], [place] [address] 01/21/2024 11:00 AM EDT Office Visit Gynecology/Obstetric[facility] [address] [facility] [address] Hannah Pal MD [address] [place] [address] [place] [address] 01/28/2024 10:15 AM EDT Office Visit Gynecology/Obstetrics [facility] [address] [facility] [place] [address] Mame Pham CRNP [address] [place] [address] 02/25/2024 12:40 PM EDT Office Visit [facility] [address] [phone] Milana Marques PA-C [address] [place] [address] Pending Results Name Type Priority Associated Diagnoses Date /Time RUPTURE OF MEMBRANE Lab STAT Depression complicating , antepartum 01/01/2024 3:16 PM EDT Scheduled Orders Name Type Priority Associated Diagnoses Orde r Schedule RUPTURE OF MEMBRANE Lab STAT Depression complicating , antepartum Expected: 01/01/2024, Expires: 12/31/2024 US PREG LIMITED 1 OR MORE FETUSES Medical Imaging Routine Supervision of high risk in third trimester Expected: 01/01/2024 (Approximate), Expires: 01/31/2025 Health Maintenance Due Date Last Done Comments [...] , antepartum Mental disorders of mother, antepartum with history of ectopic , antepartum Multigravida of advanced maternal age in third [...]
--- OUTSIDE RECORDS SUMMARY | 2024-01-22 10:33 | External Medical Summary | Summary of Care ---
Author Name Unknown Organization [facility] Address [address] [address] [address] Phone [phone] Care Team Providers Care Marketing Communication Manager Name Role Phone Unavailable Primary Care Provider Unavailabl e Reason for Visit * Reason Comments Return Visit Encounter Details Date Type Department Care Team (Late st Contact Info) Description 01/14/2024 9:15 AM EDT Office Visit Gynecology/Obstetric s Ermias Samaniego [address] [place] [address] Mame Pham CRNP [address] [place] [address] Supervision of high risk in third trimester*; [...] as of this encounter (statuses as of 01/14/2024) Medications Medication Sig Dispensed Refills Start Date [...] the morning. 90 Tablet 1 08/03/2023 Active Radius NetworksTouch Verio Flex System w/Device KitIndications:Diet controlled gestational diabetes mellitus (GDM) in third trimester Use to test blood sugars 4 times daily (fasting, 1 hour after breakfast, lunch, and dinner) 1 Kit 0 11/13/2023 Active Radius NetworksTouch Verio In Vitro Strip (Glucose Blood)Indications:Diet controlled gestational diabetes mellitus (GDM) in third trimester Use to test blood sugars 4 times daily (fasting, 1 hour after breakfast, lunch, and dinner) 125 Strip 6 11/13/2023 Active Radius NetworksTouch Delica Lancets 30GIndications:Diet controlled gestational diabetes mellitus [...] as of this encounter (statuses as of 01/14/2024) Active Problems Problem Noted Date Diagnosed Date [...] Recommend nutrition consult with RDN (Registered Dietitian Mortgage Lender). Lifestyle changes are also indicated including optimizing [...] as of this encounter (statuses as of 01/14/2024) Resolved Problems Problem Noted Date Diagnosed Date [...] as of this encounter (statuses as of 01/14/2024) Immunizations Name Administration Dates Next Due Covid-19 [...] money to get more. Never true 06/17/2023 [place] Depression Scale Answer Date Recorded [place] Depression Scale Total 7 01/08/2024 The thought [...] Sign Reading Time Taken Comments Blood Pressure 98/74 01/14/2024 8:59 AM EDT Pulse - - Temperature - - Respiratory Rate - - Oxygen Saturation - - Inhaled Oxygen Concentration - - Weight 83 kg (183 lb) 01/14/2024 8:59 AM EDT Height 152.4 cm (5') 01/14/2024 8:59 AM EDT Body Mass Index 35.74 01/14/2024 8:59 AM EDT documented in this encounter Progress Notes * Mame Pham CRNP - 01/14/2024 9:13 AM EDT 37w5d Sent message yesterday asking to change IOL to 41 weeks- had originally asked for 39w. IOL changed to 02/05. No concerns. Baby is active. Had 2 contractions on Saturday, none since. Denies bleeding. Following with [facility] for GDMA1. SAVAGE Hercules documented in this encounter Nursing Notes * Sisi Ruvalcaba LPN - 01/14/2024 9:03 AM EDT 37w5d IOL scheduled 02/05. Denies concerns. documented in this encounter Plan of Treatment Upcoming Encounters Date Type Department Care Team (Late st Contact Info) Description 01/16/2024 1:00 PM EDT [facility] [address] [place] [address] Zoila Black RDN [address] [place] [address] 01/21/2024 11:00 AM EDT Office Visit Gynecology/Obstetrics [facility] [address] [place] [address] Hannah Pal MD [address] [place] [address] [place] [address] 01/28/2024 10:15 AM EDT Office Visit Gynecology/Obstetrics [facility] [address] [place] [address] Mame Pham CRNP [address] [place] [address] 02/25/2024 12:40 PM EDT [facility] [address] [place] [phone] Milana Marques PA-C [address] [facility] [address] [place] [address] Health Maintenance Due Date [...]
--- OUTSIDE RECORDS SUMMARY | 2024-01-22 10:34 | External Medical Summary | Summary of Care ---
Author Name Unknown Organization [facility] Address [address] [address] Phone [phone] Care Team Providers Care Auto Radio Mechanic Name Role Phone Unavailable Primary Care Provider Unavailabl e Reason for Visit * Reason Comments DSMT INITIAL Encounter Details Date Type Department Care Team (Late st Contact Info) Description 12/19/2023 11:00 AM [facility] [address] [place] [address] Zoila Black, LIBRADO [address] [place] [address] Diet controlled gestational diabetes mellitus (GDM) in third trimester*; Supervision of high risk in third trimester; Obesity in , antepartum Allergies Active Allergy Reactions Criticality Noted Date Comments No Known Drug Allergy 08/08/2010 documented as of this encounter (statuses as of 12/19/2023) Medications Medication Sig Dispensed Refills Start Date [...] the morning. 90 Tablet 1 08/03/2023 Active NEMOPTIC Flex System w/Device KitIndications:Diet controlled gestational diabetes mellitus (GDM) in third trimester Use to test blood sugars 4 times daily (fasting, 1 hour after breakfast, lunch, and dinner) 1 Kit 0 11/13/2023 Active NEMOPTIC In Vitro Strip (Glucose Blood)Indications:Diet controlled gestational diabetes mellitus (GDM) in third trimester Use to test blood sugars 4 times daily (fasting, 1 hour after breakfast, lunch, and dinner) 125 Strip 6 11/13/2023 Active [email or web address] Lancets 30GIndications:Diet controlled gestational diabetes mellitus (GDM) [...] as of this encounter (statuses as of 12/19/2023) Active Problems Problem Noted Date Diagnosed Date [...] elevations. Continue diet control. 12/09/2023- stable 12/16/23-stable Last Assessment & Plan: CONSIDERATIONS: Reviewed etiology [...] Recommend nutrition consult with RDN (Registered Dietitian Package Dye Stand Loader). Lifestyle changes are also indicated including optimizing [...] as of this encounter (statuses as of 12/19/2023) Resolved Problems Problem Noted Date Diagnosed Date [...] as of this encounter (statuses as of 12/19/2023) Immunizations Name Administration Dates Next Due Covid-19 Ad26, Single Dose (Varsha/J&J) 01/19/2021 DTaP Dipth/Tet/Acell Pertussis (Infanrix), Peds 04/26/1993,05/31/1989,04/27/1988,1987,1987 HIB PRP-T, 4 dose (ActHib) 05/31/1989 Hepatitis B, 0-19 yrs 08/08/1998,03/07/1998,04/03/1998 MMR - Measles/Mumps/Rubella Vaccine 04/26/1993,0 02/15/1989 OPV [...] money to get more. Never true 06/17/2023 [place] Depression Scale Answer Date Recorded [place] Depression Scale Total 7 11/21/2023 The thought [...] encounter Patient Instructions * Patient Instructions* Zoila Black, LIBRADO - 12/19/2023 11:54 AM EST Participant will aim for 2 servings of low-carb vegetables daily that you can tolerate. Include in meals and/or snacks throughout the day. documented in this encounter Progress Notes * Zoila Black RDN - 12/19/2023 11:07 AM EST DIABETES SELF-MANAGEMENT TRAINING/INITIAL NOTE Name: Lisseth Longoria Date: 12/19/2023 Patient location: HOME. I was not in a hospital or clinic location. After connecting through [employer], patient was verified with two unique identifiers. Patient (or authorized legal account manager sales representative) was then informed that this was a [...] like to discuss in your appointment: none In your words, what is diabetes? My insulin and glucose is not working as it should and my body isn't managing sugar correctly Do you know the risks of uncontrolled diabetes? Yes Do you believe that diabetes can be controlled? Yes Are you ready to make small changes to help with diabetes self-management: Yes What type of diabetes do you have? Gestational Diabetes Mellitus: Are you aware of the post- glucose screening recommendations? No Diabetes diagnosis year: 2023 Do you have a family history of diabetes? Yes Have you had any previous diabetes education? Yes, had GDM video class on 12/11/23 Support systems: Spouse Barriers to care: None Special Needs: None Psychosocial Screening: Lately have you been feeling down, depressed or hopeless most of the day? No How Do You Manage Stress? Has not identified a way to manage stress Food Insecurity: Within the past 12 months, I worried whether our food would run out before we got money to buy more. No Within the past 12 months, the food we bought just did not last and we did not have money to buy more. No Sleep Health: Addressed - How many hours are you sleeping during the night? 8-9 hours Do you have difficulty falling or staying asleep? No Do you snore? Yes Are you waking up during the night with symptoms of low glucose levels (shaky, sweaty, nightmares)?No Are you waking up during the night to urinate frequently? No Diabetes Medications: None Monitoring blood glucose, interpreting and using results Self-Monitoring Blood Glucose Source of Information: Participant verbally reviewed from memory Frequency of tests: daily, 4 times daily Post prandial breakfast ~ 130 Post prandial lunch and dinner 100-110's, recent level of 145 after eating Icelandic FBS 70-80, 54 Hypoglycemia?: Yes, participant has had 1 episodes in past 2 weeks. Treats hypoglycemia by: Eats any food choice available Diet: Describes typical diet history/24-hour recall Breakfast: parfait-Croatian yogurt, granola bar, berries, iced coffee with sugar- free syrup and sweetened creamer or egg with 1 slice of toast with butter Snacks: apple with PB Lunch: lunch meat-chicken or lunch meat sandwich with lettuce, tomato, cheese, and jimenez on a wrap or whole-grain bread or salad with shrimp or chicken with oil & garlic dressing, grapes and high-protein chips, water Snacks: protein bar-Larabar or Kind bar or lightly salted almonds and a tre Dinner: chicken and salsa with cheese, homemade guacamole and a few tortilla chips or salmon, vegetables, small portion of brown rice or tacos with corn tortillas or breakfast foods-eggs and avocado toast, Quest-low CHO, high-protein pizza on , water Snacks: protein bar, hot plain raspberry leaf tea Drinks: water with lemon or navajo or sparkling water, occasionally diet Coke on fqvr-riwq-fhxjtl perparticipant Restaurant meals: once a week Weight management review: Wt Readings from Last 6 Encounters: 12/18/23 83.5 kg (184 lb) 12/05/23 83.3 kg (183 lb 9.6 oz) 11/21/23 83.5 kg (184 lb) 11/08/23 83.9 kg (185 lb) 09/17/23 83 kg (183 lb) 08/19/23 81.6 kg (180 lb) Recent weight changes: stable recently Physical Activity: Cleaning, walking ADA STANDARDS OF CARE/BUNDLE MEASURES Diabetes Bundle / Standards of Care: Gestational Diabetes Participant Therapy Management Plan: Hypertension: BP Readings from Last 3 Encounters: 12/18/23 98/72 12/05/23 100/60 11/21/23 102/64 Gestational Diabetes Participant, being monitored by PLAYGROUND EQUIPMENT ERECTOR. Dyslipidemia: Lab Results Component Value Date/Time LDL CHOLESTEROL (CALCULATED) - [facility] 116 (H) 07/04/2010 10:08 AM Lab Results Component Value Date/Time TRIGLYCERIDES - [facility] 112 07/04/2010 10:08 AM CHOLESTEROL - [facility] 217 (H) 07/04/2010 10:08 AM CHOLESTEROL-HDL RATIO - [facility] 2.7 07/04/2010 10:08 AM HDL CHOLESTEROL - [facility] 79 (H) 07/04/2010 10:08 AM Gestational Diabetes Mellitus Participant Kidney function review: [...] URINE - [facility]" Gestational Diabetes Mellitus Participant DSMT Initial Visit Assessment of Content Areas: Choose the answer that represents the participant's competency in each area. All need to be assessed at initial. Areas taught must match intervention. If content area not assessed and/or intervened today, it will be deferred to future session. Diabetes disease process and treatment process: Needs review (2) Incorporating nutrition management into lifestyle: Comprehends king points (3) Incorporating physical activity into lifestyle: Needs review (2) Using medications safely: Needs instruction (1) Monitoring blood glucose, interpreting and using results: Comprehends king points (3) Prevention, detection, and treatment of acute complications: Needs instruction (1) Prevention, detection, and treatment of chronic complications: Needs review (2) Developing strategies to address psychosocial issues: Needs instruction (1) Developing strategies to promote health/change behavior: Needs instruction (1) DSMT/ Diabetes MNT intervention: Pathophysiology: Defined disease process. Reviewed issue with glucose levels and , specifically GDM. She notes a paternal grandmother with type 2 DM. Nutrition: Participant states she has been aiming for 45 grams of CHO's per meal. Notes elevated glucose levels when including iced coffee drink with her current breakfast. Also notes elevated post prandial levels after eating high- protein pasta and whole grain crackers. She has been reviewing nutrition labels for total grams of CHO's. Reviewed 10 hour rule with her; she states her evening snack and breakfast are 10 hours apart. She admits to not eating many low-CHO vegetables during her -states these are food aversions for her, especially cooked vegetables, ie, broccoli. States she wants to increase these in her meal regimen; encouraged her to choose other tolerated raw vegetables throughout the day. Discussed avoiding deli meats-encouraged her to heat them in the microwave for a minimum of 1 minute to kill potential bacteria in them. Also discussed avoiding saturated fats to keep insulin resistance down. Physical Activity: Educated on the role of physical activity on glucose control. Encouraged participant to do short sessions of walking after meals if post prandial glucose levels are above recommended target range. Monitoring: Participant notes checking glucose levels regularly as recommended. She is familiar with recommended target ranges for fasting and post-prandial glucose levels. She forwards her glucose levels to [facility] using the [employer] karie. Acute Complications: Taught rule of "15" to treat hypoglycemia. Participant Selected Behavioral Objective: Nutrition: To improve blood glucose control I will aim for 2 servings of low- carb vegetables daily that you can tolerate. Include in meals and/or snacks throughout the day. Recommended Medication Changes: No changes. Education materials given to participant/caregiver and reviewed during today's visit: None given today Diabetes Self-Management Support: Apps/Smart Phone Technology: Current Health Possible Future Topics: Content areas that were not assessed in first visit: All content areas have been assessed. Time Spent With Patient: Time in: 11:06 AM Time out: 11:55 AM Billing: DSMT: 30 Minutes Plan for Return: 01/16/2024 Participant provided with contact information for Diabetes Care and Covered Button Maker. All [facility] providers within the system are able to see [place] [employer] education and outcomes within the participant's electronic medical record. Zoila Black RDN, NUTR[facility] Diabetes Care and Covered Button Maker documented in this encounter Plan of Treatment Upcoming Encounters Date Type Department Care Team (Late st Contact Info) Description 01/03/2024 11:30 AM EDT Office Visit Gynecology/Obstetrics [facility] [address] [place] [address] Katie Hong PA-C [address] [place] [address] 01/16/2024 1:00 PM EDT Telemedicine Nutrition, [facility] [address] [place] [address] Zoila Black RDN [address] [place] [address] 02/25/2024 12:40 PM EDT Office Visit [facility] [address] [place] [phone] Milana Marques PA-C [address] [place] [address] Health Maintenance Due Date Last Done Comments [...]
--- OUTSIDE RECORDS SUMMARY | 2024-01-22 10:34 | External Medical Summary | Summary of Care ---
Author Name Unknown Organization [facility] [address] [address] Phone [phone] Care Team Providers Care Breaker Table Worker Name Role Phone Unavailable Primary Care Provider Unavailabl e Reason for Visit * Reason Comments DSMT INITIAL Encounter Details Date Type Department Care Team (Late st Contact Info) Description 12/19/2023 11:00 AM [facility] [address] [place] [address] Zoila Black, LIBRADO [address] [place] [phone] Diet controlled gestational diabetes mellitus (GDM) in [...] the morning. 90 Tablet 1 08/03/2023 Active [employer] Flex System w/Device KitIndications:Diet controlled gestational diabetes mellitus (GDM) in third trimester Use to test blood sugars 4 times daily (fasting, 1 hour after breakfast, lunch, and dinner) 1 Kit 0 11/13/2023 Active [employer] In Vitro Strip (Glucose Blood)Indications:Diet controlled gestational diabetes mellitus (GDM) in third trimester Use to test blood sugars 4 times daily (fasting, 1 hour after breakfast, lunch, and dinner) 125 Strip 6 11/13/2023 Active [employer] Lancets 30GIndications:Diet controlled gestational diabetes mellitus (GDM) [...] Recommend nutrition consult with RDN (Registered Dietitian Document Control Coordinator). Lifestyle changes are also indicated including [...] money to get more. Never true 06/17/2023 Bryant Depression Scale Answer Date Recorded Bryant Depression Scale Total 7 11/21/2023 The thought [...] * Patient Instructions* Zoila Black RDN - 12/19/2023 11:54 AM EST Participant will [...] hospital or clinic location. After connecting through televideo, patient was verified with two unique identifiers. 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 Treats hypoglycemia by: Eats any food choice available Diet: Describes typical diet history/24-hour recall Breakfast: parfait-Indian yogurt, granola bar, berries, iced coffee with [...] leaf tea Drinks: water with lemon or tangirnaq or sparkling water, occasionally diet Coke on [id number] perparticipant Restaurant meals: once a week Weight [...] 102/64 Gestational Diabetes Participant, being monitored by PRACTICING DERMATOLOGIST. Dyslipidemia: Lab Results Component Value Date/Time LDL [...] other tolerated raw vegetables throughout the day. Physical Activity: Educated on the role of physical activity on glucose control. Encouraged participant to do short sessions of walking after meals if post prandial glucose levels are above recommended target range. Monitoring: Participant notes checking glucose levels regularly as recommended. She is familiar with recommended target ranges for fasting and post-prandial glucose levels. She forwards her glucose levels to [facility] using the Current [employer] karie. Acute Complications: Taught rule of "15" [...] with contact information for Diabetes Care and Supervisor Firearms. All [facility] providers within the system are able to see [place] Diabetes [employer] education and outcomes within the participant's electronic medical record. Zoila Black RDN, NUTRITION SERVICES [facility] Diabetes Care and Supervisor Firearms documented in this encounter Plan of Treatment Upcoming Encounters Date Type Department Care Team (Late st Contact Info) Description 01/03/2024 11:30 AM EDT Office Visit Gynecology/Obstetrics [facility] [address] [place] [phone] Katie Hong PA-C [address] [place] [phone] 01/16/2024 1:00 PM EDT Telemedicine Nutrition, [facility] [address] [place] [address] Zoila Black, RDN [address] [place] [phone] 02/25/2024 12:40 PM EDT Office Visit Family [facility], [place] [address] [place] [phone] Milana Marques PA-C [address] [place] [phone] Health Maintenance Due Date Last Done Comments [...]
--- OUTSIDE RECORDS SUMMARY | 2024-01-22 10:35 | External Medical Summary | Summary of Care ---
Author Name Unknown Organization [facility] Address [address] [facility] [place] [address] Phone [phone] Care Team Providers Care Brothel Keeper Name Role Phone Unavailable Primary Care Provider Unavailabl e Reason for Visit * Reason Comments Return Visit Encounter Details Date Type Department Care Team (Late st Contact Info) Description 12/18/2023 11:30 AM EST Office Visit Gynecology/Obstetric s [facility] [address] [place] [address] Katie Hong PA-C [address] [place] [phone] Supervision of high risk in third trimester*; [...] as of this encounter (statuses as of 12/18/2023) Medications Medication Sig Dispensed Refills Start Date [...] the morning. 90 Tablet 1 08/03/2023 Active [employer]Touch Verio Flex System w/Device KitIndications:Diet controlled gestational diabetes mellitus (GDM) in third trimester Use to test blood sugars 4 times daily (fasting, 1 hour after breakfast, lunch, and dinner) 1 Kit 0 11/13/2023 Active [employer] Verio In Vitro Strip (Glucose Blood)Indications:Diet controlled gestational diabetes mellitus (GDM) in third trimester Use to test blood sugars 4 times daily (fasting, 1 hour after breakfast, lunch, and dinner) 125 Strip 6 11/13/2023 Active [employer]Touch Delica Lancets 30GIndications:Diet controlled gestational diabetes mellitus [...] as of this encounter (statuses as of 12/18/2023) Active Problems Problem Noted Date Diagnosed Date [...] Recommend nutrition consult with RDN (Registered Dietitian Appliance Painter And Refinisher). Lifestyle changes are also indicated including optimizing [...] 6-8 weeks . Antepartum anemia complicating 024 Dysplasia of cervix, low grade (KATIE 1) [...] as of this encounter (statuses as of 12/18/2023) Resolved Problems Problem Noted Date Diagnosed Date [...] as of this encounter (statuses as of 12/18/2023) Immunizations Name Administration Dates Next Due Covid-19 [...] money to get more. Never true 06/17/2023 [place] Depression Scale Answer Date Recorded [place] Depression Scale Total 7 11/21/2023 The thought [...] Sign Reading Time Taken Comments Blood Pressure 98/72 12/18/2023 11:32 AM EST Pulse - - Temperature - - Respiratory Rate - - Oxygen Saturation - - Inhaled Oxygen Concentration - - Weight 83.5 kg (184 lb) 12/18/2023 11:32 AM EST Height 152.4 cm (5') 12/18/2023 11:32 AM EST Body Mass Index 35.94 12/18/2023 11:32 AM EST documented in this encounter Progress Notes * Katie Hong PA-C - 12/18/2023 11:54 AM EST 33w6d GDM following with ADAPT remains A1. Repeat CBC today, on PO iron. Breech with last ultrasound, will continue to follow. Denies VB, LOF, contractions. Pos FM. Feels movements not always forceful kicks sometimes pushing out sensation. Reports does do [facility] no concerns for <10 movements in 2 hours. RTC in 2 weeks Katie Hong PA-C documented in this encounter Nursing Notes * Sisi Ruvalcaba LPN - 12/18/2023 11:46 AM EST 33w6g Given labor instructions Denies concerns documented in this encounter Plan of Treatment Upcoming Encounters Date Type Department Care Team (Late st Contact Info) Description 12/19/2023 11:00 AM EST Telemedicine Nutrition, [facility] [address] [place] [phone] Zoila Black RDN [address] [place] [phone] 01/03/2024 11:30 AM EDT Office Visit Gynecology/Obstetrics [facility] [address] [place] [phone] Katie Hong PA-C [address] [place] [phone] 02/25/2024 12:40 PM EDT Office Visit [facility] [address] [place] [phone] Milana Marques PA-C [address] [place] [phone] Pending Results Name Type Priority Associated Diagnoses Date /Time CBC WITH WBC DIFFERENTIAL AND ANEMIA REFLEX WORKUP Lab Routine Antepartum anemia complicating 12/18/2023 12:01 PM EST Scheduled Orders Name Type Priority Associated Diagnoses Orde r Schedule CBC WITH WBC DIFFERENTIAL AND ANEMIA REFLEX WORKUP Lab Routine Antepartum anemia complicating Expected: 12/18/2023, Expires: 12/18/2024 Health Maintenance Due Date Last Done Comments [...]
--- OUTSIDE RECORDS SUMMARY | 2024-01-22 10:35 | External Medical Summary | Summary of Care ---
Author Name Unknown Organization [facility] Address [address] [facility] [place] [address] Phone [phone] Care Team Providers Care Icer Hand Name Role Phone Unavailable Primary Care Provider Unavailabl e Reason for Visit * Reason Comments Return Visit Encounter Details Date Type Department Care Team (Late st Contact Info) Description 12/18/2023 11:30 AM EST Office Visit Gynecology/Obstetric s [facility] [address] [place] [phone] Katie Hong PA-C [address] [place] [address] Supervision of high risk in third trimester*; [...] the morning. 90 Tablet 1 08/03/2023 Active [employer] Verio Flex System w/Device KitIndications:Diet controlled gestational diabetes mellitus (GDM) in third trimester Use to test blood sugars 4 times daily (fasting, 1 hour after breakfast, lunch, and dinner) 1 Kit 0 11/13/2023 Active [employer] Verio In Vitro Strip (Glucose Blood)Indications:Diet controlled gestational diabetes mellitus (GDM) in third trimester Use to test blood sugars 4 times daily (fasting, 1 hour after breakfast, lunch, and dinner) 125 Strip 6 11/13/2023 Active [employer] Lancets 30GIndications:Diet controlled gestational diabetes mellitus [...] Recommend nutrition consult with RDN (Registered Dietitian Recreation Worker). Lifestyle changes are also indicated including optimizing [...] money to get more. Never true 06/17/2023 [place] Depression Scale Answer Date Recorded [place] Depression Scale Total 7 11/21/2023 The thought [...] Team (Late st Contact Info) Description 12/18/2023 12:40 PM EST Laboratory Laboratory, [facility] [address] [place] [phone] [facility] [address] [place] [address] Antepartum anemia complicating 12/19/2023 11:00 AM EST Telemedicine Nutrition, [facility] [address] [place] [address] Zoila Black, LIBRADO [address] [place] [address] 01/03/2024 11:30 AM EDT Office Visit Gynecology/Obstetri [facility] [address] [place] [address] Katie Hong PA-C [address] [place] [address] 02/25/2024 12:40 PM EDT Office Visit [facility] [address] [place] [phone] Milana Marques PA-C [address] [place] [address] Pending Results Name Type Priority Associated Diagnoses [...] third trimester Antepartum anemia complicating Anemia, antepartum Antepartum anemia complicating Anemia, antepartum documented in this encounter Advance Directives Latest Code Status on File Code Status Date Activated Date Inactivated Comments Full Code 06/08/2021 11:52 PM 06/09/2021 5:44 AM This order reflects the patients wishes and were consensually agreed upon. Question Answer Comments Discussion of Advance Directives occurred with: Not Discussed
--- OUTSIDE RECORDS SUMMARY | 2024-01-22 10:35 | External Medical Summary | Summary of Care ---
Author Name Unknown Organization [facility] [address] [facility] [address] Phone [phone] Care Team Providers Care Manager Business Operations Name Role Phone Unavailable Primary Care Provider Unavailabl e Reason for Visit * Reason Comments DSMT INITIAL * Evaluate & Treat - Unlimited Visits (Within 10 days (routine)) - Pending Review Specialty Diagnoses / Procedures Referred By Conterick t Referred To Contact Medical Equipment Sales / Nutrition Services Diagnoses Diet controlled gestational diabetes mellitus (GDM) in third trimester Naima Xavier CRNP [address] [place] [address] Referral ID Status Reason Start Date Expiration Date Visits Requested Visits Authorized [id number] Pending Review Specialty Services Required 11/13/[phone] Encounter Details Date Type Department Care Team (Late st Contact Info) Description 12/11/2023 8:00 AM EST Telemedicine Virtual, Nutrition Services [address] [place] [address] Cheli Thorne, LIBRADO [address] [place] [address] DAVID Styles [phone] Diet controlled gestational diabetes mellitus (GDM) in third trimester*; Supervision of high risk in third trimester; Obesity in , antepartum; Depression complicating , antepartum; COVID-19 affecting , antepartum; Antepartum anemia complicating Allergies Active Allergy Reactions Criticality Noted Date Comments No Known Drug Allergy 08/08/2010 documented as of this encounter (statuses as of 12/11/2023) Medications Medication Sig Dispensed Refills Start Date [...] the morning. 90 Tablet 1 08/03/2023 Active [employer]in Flex System w/Device KitIndications:Diet controlled gestational diabetes mellitus (GDM) in third trimester Use to test blood sugars 4 times daily (fasting, 1 hour after breakfast, lunch, and dinner) 1 Kit 0 11/13/2023 Active [employer]in In Vitro Strip (Glucose Blood)Indications:Diet controlled gestational diabetes mellitus (GDM) in third trimester Use to test blood sugars 4 times daily (fasting, 1 hour after breakfast, lunch, and dinner) 125 Strip 6 11/13/2023 Active Vestmark Delica Lancets 30GIndications:Diet controlled gestational diabetes mellitus [...] as of this encounter (statuses as of 12/11/2023) Active Problems Problem Noted Date Diagnosed Date [...] PP elevations. Continue diet control. 12/09/2023- stable Last Assessment & Plan: CONSIDERATIONS: Reviewed etiology [...] Recommend nutrition consult with RDN (Registered Dietitian Legal Writing Professor). Lifestyle changes are also indicated including optimizing [...] Dysplasia of cervix, low grade (KATIE 1) Overview: Repeat pap 10/2024 COVID-19 affecting , [...] as of this encounter (statuses as of 12/11/2023) Resolved Problems Problem Noted Date Diagnosed Date [...] as of this encounter (statuses as of 12/11/2023) Immunizations Name Administration Dates Next Due Covid-19 [...] money to get more. Never true 06/17/2023 [place] Depression Scale Answer Date Recorded [place] Depression Scale Total 7 11/21/2023 The thought [...] this encounter Patient Instructions * Patient Instructions* Kelly Joshi RDN - 12/11/2023 8:06 AM EST Nutrition: To improve blood glucose control I will follow meal plan of Breakfast: 15-30 grams carbohydrate Snack: 15-30 grams carbohydrate Lunch: 30-60 grams carbohydrate Snack: 15-30 grams carbohydrate Dinner: 30-60 grams carbohydrate Bedtime snack: 15-30 grams carbohydrate documented in this encounter Progress Notes * Kelly Joshi RDN - 12/11/2023 8:06 AM EST DIABETES SELF-MANAGEMENT TRAINING Gestational Diabetes Group Session Name: Lisseth Longoria Date: 12/11/2023 Patient location: HOME. I was in a hospital or clinic location. After connecting through [employer],patient was verified with two unique identifiers. 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 Methods to assure confidentiality were taken. Patient acknowledged consent and understanding of pr ivacy and security of the Telemedicine visit. The patient agreed to participate. ADA referral in place? Yes What diabetes concerns and/or barriers to care would you like to discuss in your appointment: Diabetes with gestational diabetes. Here for education. What is gestational diabetes? When do I test my blood sugar? Will I need medication for gestational diabetes? What diet do I follow for gestational diabetes? What does exercise do to my blood sugar? Will this go away for me and the baby? What type of diabetes to you have? Gestational Diabetes DSMT Initial Visit Assessment of Content Areas: Choose the answer that represents the participant's competency in each area. All need to be assessed at initial. Areas taught must match intervention. If content area not assessed and/or intervened today, it will be deferred to future session. Diabetes disease process and treatment process: Needs instruction (1) Incorporating nutrition management into lifestyle: Needs instruction (1) Incorporating physical activity into lifestyle: Needs instruction (1) Using medications safely: Needs instruction (1) Monitoring blood glucose, interpreting and using results: Needs instruction (1) Prevention, detection, and treatment of acute complications: Needs instruction (1) Prevention, detection, and treatment of chronic complications: Needs instruction (1) Developing strategies to address psychosocial issues: Needs instruction (1) Developing strategies to promote health/change behavior: Needs instruction (1) Nutrition Diagnosis: Food and Nutrition Related Knowledge Deficit related to limited prior nutrition- related education as evidenced by referral to be seen for gestational diabetes and enrolled in group session for education. DSMT/ Diabetes MNT intervention: Pathophysiology: Defined disease process. Nutrition: GDM nutrition: Educated on rationale and guidelines of nutritional management of GDM. Emphasis on need for carbohydrate control/consistency with structured meal schedule. Taught participant how to read a food label. Importance of also meeting nutritional needs of reinforced. Stressed importance of avoiding sugar sweetened beverages, fruit juices. Encouraged bedtime snack 8-10 hours before fasting test the next day. Recommended starting meal pattern provided = Breakfast: 15-30 grams carbohydrate Snack: 15-30 grams carbohydrate Lunch: 30-60 grams carbohydrate Snack: 15-30 grams carbohydrate Dinner: 30-60 grams carbohydrate Bedtime snack: 15-30 grams carbohydrate Physical Activity: Educated on the role of physical activity on glucose control. Educated on the options for physical activity given participant's diabetes complications or other health issues. Medication: Reviewed that due to hormonal insulin resistance in , there may be a need for medication to achieve blood glucose levels in target. Monitoring: blood glucose and targets: Educated on blood glucose monitoring and recommended testing times of fasting and 1-OR 2-hour post meals with targets of less than 95 fasting, 1-hour post meal ofless than 140 OR 2-hour post meal of less than 120. Encouraged logging blood glucoses and reported readings 1 time weekly to care team. Chronic Complications: Educated on the risks of uncontrolled blood glucose during and post for mom and /. Promote health/Change behavior: : Educated on the effects of diabetes prior to and during . Reviewed importance of glucose screening after having gestational diabetes. Participant Selected Behavioral Objective: Nutrition: To improve blood glucose control I will follow meal plan of Breakfast: 15-30 grams carbohydrate Snack: 15-30 grams carbohydrate Lunch: 30-60 grams carbohydrate Snack: 15-30 grams carbohydrate Dinner: 30-60 grams carbohydrate Bedtime snack: 15-30 grams carbohydrate Education materials given to participant/caregiver and reviewed during today's visit: Kristi Materials: What is Gestational Diabetes? Healthy Meals for Diabetes Understanding Carbohydrates Possible Future Topics: Content areas that were not assessed in first visit: Acute complications Psychosocial/healthy coping Time Spent With Patient: Time in: 8:00 Time out: 8:38 Billing: DSMT: 1 units This visit was completed as a virtual group session. Plan for Return: 2-4 week return Participant provided with contact information for Diabetes Care and Morning Show Producer. All [facility] providers within the system are able to see ADA education and outcomes within the participant electronic medical record. LIBRADO Richardson RDN, NUTRITION SERVICES [facility] Diabetes Care and Morning Show Producer documented in this encounter Miscellaneous Notes * Pt Handout (on AVS) - Kelly Joshi RDN - 12/11/2023 8:07 AM EST Images from the original note were not included. [id number] What Is Gestational Diabetes? Diabetes is when your body doesn?t use blood sugar normally. Gestational diabetes happens only in . When food is digested, it turns into sugar (glucose) that goes into your bloodstream. Yourbody sends out insulin. This is a hormone that helps your cells use this blood sugar for energy. Changes in your body during may affect this process. This can cause your blood sugar to be too high. This can cause problems for both you and your baby. You can take steps to control your blood sugar. This will help reduce the risks for you and your baby. Managing gestational diabetes You need to control your blood sugar while you are . Your healthcare team will help you make a plan to do this. This plan will include: Eating the right foods. This is the main way to control your blood sugar. You need to eat a variety of healthy foods each day. To help you plan changes in your diet, you will likely work with a registered dietitian. This is an expert on food and nutrition. The dietitian may have you take part darren nutrition program to help you reach your goals. Getting exercise. Your body uses more blood sugar when you exercise. Your healthcare team can help you pick the best kinds of exercise for you. Checking your blood sugar. You will likely need to check your blood sugar at home. You will do this 2 or more times a day. Your healthcare team will teach you how. They will talk with you about your blood sugar goals. Your blood sugar may also be tested every week or so at a clinic. If your blood sugar stays too high, you may need to have insulin shots during your . Risks to your baby If your blood sugar stays high, your baby is at risk for these problems: Your baby may grow too large. If your blood sugar stays too high, your baby may grow too large. This is called macrosomia. This means a baby is too big for a safe vaginal . A large baby may get their shoulder stuck behind the pubic bone during . This is called shoulder dystocia. The baby's arms and shoulders could be injured. This may cause permanent arm damage. The baby may also have low oxygen levels (hypoxia) while they are stuck. Hypoxia can lead to cerebral palsy. In rare cases, it can lead to . Your baby?s organs may not be fully grown at . If you have diabetes, your baby may need to be delivered early. This may be because of problems with the . Or it may be because of risks to you or your baby. If your baby is delivered early, their lungs may not work well. This is called respiratory distress syndrome. Your baby's liver also may not work normally. And your baby may have yellow color in their skin and eyes (jaundice) after . Your baby?s blood sugar may be low after . If your blood sugar is too high, your baby makesextra insulin. The baby will keep making extra insulin right after . Your baby may need to be treated for low blood sugar. Your baby could be stillborn. This is very rare. But your baby could before if your blood sugar stays high for too long. Risks to you If you don?t control your blood sugar, you are more likely to have: High blood pressure. High blood sugar makes you more likely to have high blood pressure during your . This is a danger to your health. It could lead to early delivery for your baby. Infections. High blood sugar makes you more likely to have bladder, kidney, and vaginal infections. Trouble breathing. You may feel short of breath. High blood sugar can cause too much fluid around the baby. This is called polyhydramnios. Your abdomen gets big and pushes up on your lungs. Difficult labor. Your delivery may be harder. And your recovery may take longer. If your blood sugar stays too high, your baby may grow too large. A large baby might cause injury to you during . Or the baby may have to be delivered by section (). This means making a cut (incision) in your abdomen and uterus. A is a common risk of gestational diabetes. Reduce your future risk for type 2 diabetes Women who have gestational diabetes are at higher risk of type 2 diabetes later. You are also at higher risk for gestational diabetes in your next . You can help reduce your risk in these ways: Lose excess weight. Be as active as you can. Eat more fruits and vegetables. Eat fewer processed foods. Get regular blood tests to check for diabetes. Who is at risk for gestational diabetes? You're more at risk if you: Are overweight Have a family history of diabetes Have had a baby who before Had gestational diabetes in the past Are , , , [place] or [place] , or How daily issues affect your health Many things in your daily life impact your health. This can include transportation, money problems,housing, access to food, and childcare. If you can?t get to medical appointments, you may not receive the care you need. When money is tight, it may be difficult to pay for medicines. And living far from a grocery store can make it hard to buy healthy food. If you have concerns in any of these or other areas, talk with your healthcare team. They may know of local resources to assist you. Or they may have a staff person who can help. Last Reviewed Date: 05/21/202319998591-9311 [employer]. All rights reserved. This information is not intended as a substitute for professional medical care. Always follow your healthcare professional's instructions. * Pt Handout (on AVS) - Kelly Joshi RDN - 12/11/2023 8:07 AM EST Images from the original note were not included. [address] Understanding Carbohydrates A car needs the right type of fuel to run. And you need the right kind of food to function. To keepyour energy level up, your body needs food that has carbohydrates (carbs). But carbs raise blood sugar levels higher and faster than other kinds of food. Your dietitian will work with you to figure out the amount of carbs you need. Carbs come in 3 types: starches, sugars, and fiber. Starches Starches are found in grains, some vegetables, and beans. Grain products include bread, pasta, cereal, and tortillas. Starchy vegetables include potatoes, peas, corn, pal beans, yams, and squash. Kidney beans, weiss beans, black beans, garbanzo beans, and lentils also have starches. Sugars Sugars are found naturally in many foods. Or they can be added. Foods that contain natural sugar include fruits and fruit juices, dairy products, honey, and molasses. Added sugars are found in most desserts, processed foods, candy, regular soda, and fruit drinks. These are very helpful to treat lowblood sugar (hypoglycemia). They give you sugar quickly. Try to keep at least 15 to 20 grams of these simple sugars with you at all times. Eat or drink these if you start to have symptoms of low blood sugar. Fiber Fiber comes from plant foods. Your body can't digest most fiber. Instead of raising blood sugar levels like other carbs, fiber stops blood sugar from rising too fast. Fiber is found in fruits, vegetables, whole grains, beans, peas, and many nuts. Carb counting Keep track of the amount of carbs you eat. This can help you keep the right balance of carbs, physical activity, and medicine. The amount of carbs you need will be different from what other people need. How much you need depends on many things. These include your health, the medicines you take, andhow active you are. Your healthcare team will help you figure out the right amount of carbs for you. You may start with 45 to 60 grams of carbs per meal, depending on your case. Carb counting is a system that helps you keep track of the carbohydrates you eat at each meal. Carbs come from many foods. These include grains, starchy vegetables, fruit, milk, beans, and snackfoods. You can either count carbohydrate grams or carbohydrate servings. When you count carbohydrate servings, 1 carbohydrate serving = 15 grams of carbohydrates. Here are some examples of foods that have about 15 grams of carbs (1 serving of carbohydrates): 1/2 cup of canned or frozen fruit A small piece of fresh fruit (4 ounces) 1 slice of bread 1/2 cup of oatmeal 1/3 cup of rice 4 to 6 crackers 1/2 Montenegrin muffin 1/2 cup of black beans 1/4 of a large baked potato (3 ounces) 2/3 cup of plain fat-free yogurt 1 cup of soup 1/2 cup of casserole 6 chicken nuggets [id number] brownie or cake without frosting 2 small cookies 1/2 cup of ice cream or sherbet Carb counting is easier when food labels are available. Look at the label to see how many grams of total carbs per serving the food contains. Then you can figure out how much you should eat. If your food doesn't have a nutrition label, you should be able to get an idea how many carbs there are per serving by using a book or website. Two very important lines to look at on the label are the serving size and the total carbohydrate amount per serving. Here are some tips for using food labels to count your carbs: Check the serving size. The information on the label is based on that serving size. If you eat more than the listed serving size, you may have to double or triple the other information on the label. Check the total grams of carbs. Total carbohydrate from the label includes sugar, starch, and fiber. Be sure to use the total carbohydrate number (minus the fiber) and not sugar alone. Know how many grams of carbs you can have. Be familiar with the matching portion sizes. Compare labels. Compare the labels of different products. Look at serving sizes and total carbs to find the products that work best for you. Don't forget protein and fat. With the focus on carb counting, it might be easy to forget protein and fat in your meals. Don't forget to include sources of protein and healthy fat to balance your meals. Also watch how much salt (sodium) you eat. This is especially true if you have high blood pressure. If you have diabetes, limit the amount of sodium to less than 2,300 mg a day. It?s also important to be consistent with the amount of carbs and time you eat when taking a fixed dose of diabetes medicine. Work with your healthcare provider or dietitian if you need more help. They can help you keep track of your carbs. They can also help you figure out how many grams of carbs you should have. Last Reviewed Date: 09/20/202119995441-4296 [employer]. All rights reserved. This information is not intended as a substitute for professional medical care. Always follow your healthcare professional's instructions. * Pt Handout (on AVS) - Kelly Joshi RDN - 12/11/2023 8:07 AM EST Images from the original note were not included. [address] Healthy Meals for Diabetes Ask your healthcare team to help you make a meal plan that fits your needs. Your meal plan tells you when to eat your meals and snacks, what kinds of foods to eat, and how much of each food to eat. You don?t have to give up all the foods you like. But you do need to follow some guidelines. A healthcare provider will help you develop a meal plan that fits your needs. Choose healthy carbohydrates Starches, sugars, and fiber are all types of carbohydrates (carbs). Carbs can get a bad reputation,especially since they affect your blood sugar. But your body benefits from the right amount of healthy carbs. Fiber can help lower your cholesterol and triglycerides. Fiber is also healthy for your heart. You should have 20 to 35 grams of total fiber each day. Fiber comes from plants. Fiber-rich foods include: Whole-grain breads and cereals Nuts Brown rice and quinoa Whole-wheat pasta Fruits and vegetables Beans and peas Keep track of the amount of carbs you eat. This can help you keep the right balance of physical activity and medicine. The amount of carbs needed will vary for each person. It depends on many things such as your health, the medicines you take, and how active you are. Your healthcare team will help you figure out the right amount of carbs for you. You may start with around 45 to 60 grams of carbs per meal, depending on your situation. Here are some examples of foods containing about 15 grams of carbs (1 serving of carbs): 1/2 cup of canned or frozen fruit A small piece of fresh fruit (4 ounces) 1 slice of bread 1/2 cup of oatmeal 1/3 cup of rice 4 to 6 crackers 1/2 Montenegrin muffin 1/2 cup of black beans 1/4 of a large baked potato (3 ounces) 2/3 cup of plain fat-free yogurt 1 cup of soup 1/2 cup of casserole 6 chicken nuggets 5-[id number]-[id number] brownie or cake without frosting 2 small cookies 1/2 cup of ice cream or sherbet Choose healthy protein foods Proteins plays a king role in building healthy muscles, bones, skin, and many other parts of your body. Eating protein that's low in fat can help you control your weight. It also helps keep your hearthealthy. Low-fat protein foods include: Fish Plant proteins, such as lentils, beans, peas, nuts, and soy products like tofu and soymilk Lean meat with all visible fat removed Poultry with the skin removed Low-fat or nonfat milk, cheese, and yogurt Limit unhealthy fats and sugar Saturated and trans fats are unhealthy for your heart. They raise LDL ("bad") cholesterol. Fat is also high in calories, so it can make you gain weight. To cut down on unhealthy fats and sugar, limitthese foods: Butter or margarine Palm and palm kernel oils and coconut oil Cream Cheese Bowman Lunch meats Ice cream Sweet bakery goods such as pies, muffins, and donuts Jams and jellies Candy bars Regular sodas How much to eat The amount of food you eat affects your blood sugar. It also affects your weight. Your healthcare team will tell you how much of each type of food you should eat. Use measuring cups and spoons and a food scale to measure serving sizes. Learn what a correct serving size looks like on your plate. This will help when you're away fromhome and can?t measure your servings. For instance, a serving of meat is about the size of the palmof your hand. Eat only the number of servings given on your meal plan for each food. Don?t take seconds. Learn to read food labels. Be sure to look at serving size, total carbohydrates, fiber, calories, sugar, salt, and saturated and trans fats. Look for healthier options to foods that have added sugar or salt. Plan ahead for parties. Then you can still have a good time without going overboard with unhealthy food choices. Set a good example yourself by bringing a healthy dish to [employer]. Choose healthy snacks When it comes to snacks, we often think about foods with added sugar and fats. But there are many other options for healthier snack choices. Here are a few snack ideas to choose from: Snacks with less than 5 grams of carbohydrates 1 piece of string cheese 3 celery sticks plus 1 tablespoon of peanut butter 5 lomas tomatoes plus 1 tablespoon of ranch dressing 1 hard-boiled egg 1/4 cup of fresh blueberries 5 baby carrots 1 cup of light popcorn 1/2 cup of sugar-free gelatin 15 almonds Snacks with about 10 to 20 grams of carbohydrates 1/3 cup of hummus plus 1 cup of fresh cut nonstarchy vegetables (carrots, green peppers, broccoli, celery, or a mix) 1/2 cup of fresh or canned fruit plus 1/4 cup of cottage cheese 1/2 cup of tuna salad with 4 crackers 2 rice cakes and a tablespoon of peanut butter 1 small apple or orange 3 cups light popcorn 1/2 of a turkey sandwich (1 slice of whole-wheat bread, 2 ounces of turkey, and mustard) Portion sizes are important to controlling your blood sugar and staying at a healthy weight. Stock up on healthy snack items so you always have them on hand. When to eat Your meal plan will likely include breakfast, lunch, dinner, and some snacks. Try to eat your meals and snacks at about the same times each day. Eat all your meals and snacks. Skipping a meal or snack can make your blood sugar drop too low. It can also cause you to eat too much at the next meal or snack. Then your blood sugar could get toohigh. Last Reviewed Date: 09/20/202119999832-3030 [employer]. All rights reserved. This information is not intended as a substitute for professional medical care. Always follow your healthcare professional's instructions. documented in this encounter Plan of Treatment Upcoming Encounters Date Type Department Care Team (Late st Contact Info) Description 12/18/2023 11:30 AM EST Office [facility] [address] [place] [address] Katie Hong PA-C [address] [place] [address] 02/25/2024 12:40 PM EDT Office Visit [facility] [address] [place] [phone] Milana Marques PA-C [address] [place] [address] Scheduled Referrals Name Type Priority Associated Diagnoses Orde r Schedule DIABETES MANAGEMENT EDUCATION (ADA) REFERRAL Referral Within 10 days (routine) Diet controlled gestational diabetes mellitus (GDM) in third trimester Ordered: 11/13/2023 Health Maintenance Due Date Last Done Comments [...] , antepartum Mental disorders of mother, antepartum COVID-19 affecting , antepartum Antepartum anemia complicating Anemia, antepartum documented in this encounter Advance Directives Latest Code Status on File Code Status Date Activated Date Inactivated Comments Full Code 06/08/2021 11:52 PM 06/09/2021 5:44 AM This order reflects the patients wishes and were consensually agreed upon. Question Answer Comments Discussion of Advance Directives occurred with: Not Discussed
--- OUTSIDE RECORDS SUMMARY | 2024-01-22 10:35 | External Medical Summary | Summary of Care ---
Author Name Unknown Organization [facility] Address [address] [facility] [address] Phone [phone] Care Team Providers Care Recreation Program Specialist Name Role Phone Unavailable Primary Care Provider Unavailabl e Reason for Visit * Reason Comments DSMT INITIAL * Evaluate & Treat - Unlimited Visits (Within 10 days (routine)) - Pending Review Specialty Diagnoses / Procedures Referred By Conterick t Referred To Contact Certified Surgical Tech/First Assistant / Nutrition Services Diagnoses Diet controlled gestational diabetes mellitus (GDM) in third trimester Naima Xavier CRNP [address] [place] [address] Referral ID Status Reason Start Date Expiration Date Visits Requested Visits Authorized [id number] Pending Review Specialty Services Required 11/13/2023 [id number] Encounter Details Date Type Department Care Team (Late st Contact Info) Description 12/11/2023 8:00 AM EST Telemedicine Virtual, Nutrition Services [address] [place] [address] Cheli Thorne, LIBRADO [address] [place] [address] [place] [id number] Diet controlled gestational diabetes [...] the morning. 90 Tablet 1 08/03/2023 Active Omni-ID Flex System w/Device KitIndications:Diet controlled gestational diabetes mellitus (GDM) in third trimester Use to test blood sugars 4 times daily (fasting, 1 hour after breakfast, lunch, and dinner) 1 Kit 0 11/13/2023 Active Omni-ID In Vitro Strip (Glucose Blood)Indications:Diet controlled gestational diabetes mellitus (GDM) in third trimester Use to test blood sugars 4 times daily (fasting, 1 hour after breakfast, lunch, and dinner) 125 Strip 6 11/13/[address] Delica Lancets 30GIndications:Diet controlled gestational diabetes mellitus [...] Recommend nutrition consult with RDN (Registered Dietitian Patternmaker). Lifestyle changes are also indicated including optimizing [...] money to get more. Never true 06/17/2023 [place] Depression Scale Answer Date Recorded [place] Depression Scale Total 7 11/21/2023 The thought [...] hospital or clinic location. After connecting through [employer],patient was verified with two unique identifiers. Patient (or authorized legal customer operations representative) was then informed that this was [...] with contact information for [facility]. All [facility] providers within the system are able to see ADA education and outcomes within the participant electronic medical record. LIBRADO Richardson RDN, NUTRITION SERVICES VIRTUAL [facility] documented in this encounter Miscellaneous Notes * Pt Handout (on AVS) - Kelly Joshi RDN - 12/11/2023 8:07 AM EST Images from the original note were not included. [address] What Is Gestational Diabetes? Diabetes is when [...] person who can help. Last Reviewed Date: 05/21/202319996071-2611 [employer]. All rights reserved. This information is not intended as a substitute for professional medical care. Always follow your healthcare professional's instructions. * Pt Handout (on AVS) - Kelly Joshi RDN - 12/11/2023 8:07 AM EST Images from the original note were not included. 94465 Understanding Carbohydrates A car needs the right [...] of rice 4 to 6 crackers 1/2 Belizean muffin 1/2 cup of black beans 1/4 of a large baked potato (3 ounces) 2/3 cup of plain fat-free yogurt 1 cup of soup 1/2 cup of casserole 6 chicken nuggets 7-cmta-cjeida brownie or cake without frosting 2 small [...] carbs you should have. Last Reviewed Date: 09/20/202119997109-3370 [employer]. All rights reserved. This information is not intended as a substitute for professional medical care. Always follow your healthcare professional's instructions. * Pt Handout (on AVS) - Kelly Joshi RDN - 12/11/2023 8:07 AM EST Images from the original note were not included. 92671 Healthy Meals for Diabetes Ask your healthcare [...] of rice 4 to 6 crackers 1/2 Belizean muffin 1/2 cup of black beans 1/4 of a large baked potato (3 ounces) 2/3 cup of plain fat-free yogurt 1 cup of soup 1/2 cup of casserole 6 chicken nuggets 3-xkwv-kgccjf brownie or cake without frosting 2 small [...] yourself by bringing a healthy dish to [place]. Choose healthy snacks When it comes to [...] sugar could get toohigh. Last Reviewed Date: 09/20/202119996269-8576 [employer] All rights reserved. This information is not intended as a substitute for professional medical care. Always follow your healthcare professional's instructions. documented in this encounter Plan of Treatment Upcoming Encounters Date Type Department Care Team (Late st Contact Info) Description 12/18/2023 11:30 AM EST [facility] [address] [place] [place] [address] Katie Hong PA-C [address] [place] [address] 02/25/2024 12:40 PM EDT Office Visit [facility] [address] [phone] Milana Marques PA-C [address] [address] Scheduled Referrals Name Type Priority Associated Diagnoses [...]
--- OUTSIDE RECORDS SUMMARY | 2024-01-22 10:35 | External Medical Summary ---
Author Name Unknown Address Unknown Organization K01:LABORATORY [facility] - [address] [facility] [address] Laboratory Report Ordering Provider Test Date Status ANGELA,SAMUEL 12/18/2023 12:01:11 Final Observation Date Value Abnormality Reference (Units ) Status SYNC LEUKOCYTES IN BLOOD BY AUTOMATED COUNT 12/18/2023 12:01:11 9.35 4.00-10.80 (K/uL) Final Segs 12/18/2023 12:01:11 75.8 Above high normal 40.0-75.0 (%) Final Lymphs % 12/18/2023 12:01:11 15.0 Below low normal 18.0-42.0 (%) Final Monos 12/18/2023 12:01:11 6.8 1.0-11.0 (%) Final Eosinophils 12/18/2023 12:01:11 1.7 0.0-6.0 (%) Final Basos 12/18/2023 12:01:11 0.2 0.0-2.0 (%) Final Immature Granulocyte, Percent 12/18/2023 12:01:11 0.5 0.0-2.0 (%) Final Absolute Segs 12/18/2023 12:01:11 7.08 1.80-7.70 (K/uL) Final Lymphs, absolute 12/18/2023 12:01:11 1.40 1.00-4.80 (K/ul) Final Monos, Abs 12/18/2023 12:01:11 0.64 0.00-1.10 (K/uL) Final Eos, Abs 12/18/2023 12:01:11 0.16 0.00-0.70 (K/uL) Final Basos, Abs 12/18/2023 12:01:11 0.02 0.00-0.20 (K/uL) Final Immature Granulocytes, Number 12/18/2023 12:01:11 0.05 0.00-0.20 (K/uL) Final Performing Location LABORATORY [facility] - [address] [facility] [address]
--- OUTSIDE RECORDS SUMMARY | 2024-01-22 10:35 | External Medical Summary | Summary of Care ---
Author Name Unknown Organization [facility] Address [address] [facility] [address] Phone [phone] Care Team Providers Care Boiler Shop Supervisor Name Role Phone Unavailable Primary Care Provider Unavailabl e Reason for Visit * Reason Comments Outpatient Testing Encounter Details Date Type Department Care Team (Late st Contact Info) Description 12/18/2023 12:40 PM EST Laboratory Laboratory, [facility] [address] [facility] [phone] [facility] [address] [facility] [place] [address] Antepartum anemia complicating Allergies Active Allergy Reactions [...] the morning. 90 Tablet 1 08/03/2023 Active OneTouch Verio Flex System w/Device KitIndications:Diet controlled gestational diabetes mellitus (GDM) in third trimester Use to test blood sugars 4 times daily (fasting, 1 hour after breakfast, lunch, and dinner) 1 Kit 0 11/13/2023 Active Textura In Vitro Strip (Glucose Blood)Indications:Diet controlled gestational diabetes mellitus (GDM) in third trimester Use to test blood sugars 4 times daily (fasting, 1 hour after breakfast, lunch, and dinner) 125 Strip 6 11/13/2023 Active Py[employer]is Technology Lancets 30GIndications:Diet controlled gestational diabetes mellitus (GDM) [...] Recommend nutrition consult with RDN (Registered Dietitian Rug Measurer). Lifestyle changes are also indicated including optimizing [...] money to get more. Never true 06/17/2023 [place] Depression Scale Answer Date Recorded [place] Depression Scale Total 7 11/21/2023 The thought [...] on file documented as of this encounter Plan of Treatment Upcoming Encounters Date Type Department Care Team (Late st Contact Info) Description 12/19/2023 11:00 AM EST Telemedicine Nutrition, [facility] [address] [place] [address] Zoila Black, LIBRADO [address] [place] [place] [address] 01/03/2024 11:30 AM EDT Office Visit Gynecology/Obstetrics [facility] [address] [place] [address] Katie Hong PA-C [address] [place] [address] 02/25/2024 12:40 PM EDT [facility] [address] [phone] Milana Marques PA-C [address] [phone] Pending Results Name Type Priority Associated Diagnoses Date /Time CBC WITH WBC DIFFERENTIAL AND ANEMIA REFLEX WORKUP Lab Routine Antepartum anemia complicating 12/18/2023 12:01 PM EST ANEMIA CBC Lab Routine Antepartum anemia complicating 12/18/2023 12:01 PM EST DIFFERENTIAL, AUTOMATED Lab Routine Antepartum anemia complicating 12/18/2023 12:01 PM EST ANEMIA REFLEX CHEMISTRY HOLD Lab Routine Antepartum anemia complicating 12/18/2023 12:01 PM EST Health Maintenance Due Date Last Done Comments [...] as of this encounter Visit Diagnoses Diagnosis Antepartum anemia complicating Anemia, antepartum documented in this encounter Advance Directives Latest Code Status on File Code Status Date Activated Date Inactivated Comments Full Code 06/08/2021 11:52 PM 06/09/2021 5:44 AM This order reflects the patients wishes and were consensually agreed upon. Question Answer Comments Discussion of Advance Directives occurred with: Not Discussed
--- OUTSIDE RECORDS SUMMARY | 2024-01-22 10:35 | External Medical Summary ---
Author Name Unknown Address Unknown Organization K01:[facility] - [address] [place] [address] Laboratory Report Ordering Provider Test Date Status SAMUEL MILLER 12/18/2023 12:01:11 Final Observation Date Value Abnormality Reference (Units ) Status WBC, Total 12/18/2023 12:01:11 9.35 4.00-10.8 0 (K/uL) Final RBC 12/18/2023 12:01:11 3.92 3.85-5.15 (M/uL) Final Hemoglobin 12/18/2023 12:01:11 12.2 12.0-15.3 (g/dL) Final Anemia reflex testing trigge rs on a HGB < 12.0 for Females and HGB < 13.0 for Males in accordance with the WHO Anemia Guidelines
Anemia reflex testing triggers on a HGB < 12.0 for Females and HGB < 13.0 for Males in accordance with the WHO Anemia Guidelines HCT 12/18/2023 12:01:11 37.4 36.0-45.2 (%) Final MCV 12/18/2023 12:01:11 95.4 81.5-97.5 (fL) Final MCH 12/18/2023 12:01:11 31.1 27.0-34.0 (pg) Final MCHC 12/18/2023 12:01:11 32.6 32.0-36.0 (g/dL) Final RDW 12/18/2023 12:01:11 14.3 11.5-15.5 (%) Final Platelets 12/18/2023 12:01:11 318 140-400 (K /uL) Final MPV 12/18/2023 12:01:11 8.9 6.6-11.1 ( fL) Final Nucleated erythrocytes/100 leukocytes [Ratio] in Blood by Automated count 12/18/2023 12:01:11 0 <=0 (/100 WBCs) Fi [facility] Performing Location [facility] - [address] [facility] [address]
--- OUTSIDE RECORDS SUMMARY | 2024-01-22 10:36 | External Medical Summary | Summary of Care ---
Author Name Unknown Organization [facility] Address [address] [facility] [place] [address] Phone [phone] Care Team Providers Care Overlock Operator Name Role Phone Unavailable Primary Care Provider Unavailabl e Reason for Visit * Reason Comments Return Visit Encounter Details Date Type Department Care Team (Late st Contact Info) Description 11/15/2023 3:30 PM EST Office Visit Gynecology/Obstetric s [facility] [address] [place] [address] Katie Hong PA-C [address] [place] [address] Aden Non Stress Tests [facility] [address] [place] [address] Supervision of high risk in third trimester*; [...] as of this encounter (statuses as of 11/15/2023) Medications Medication Sig Dispensed Refills Start Date [...] the morning. 90 Tablet 1 08/03/2023 Active Cyber-Rain Flex System w/Device KitIndications:Diet controlled gestational diabetes mellitus (GDM) in third trimester Use to test blood sugars 4 times daily (fasting, 1 hour after breakfast, lunch, and dinner) 1 Kit 0 11/13/2023 Active Cyber-Rain In Vitro Strip (Glucose Blood)Indications:Diet controlled gestational diabetes mellitus (GDM) in third trimester Use to test blood sugars 4 times daily (fasting, 1 hour after breakfast, lunch, and dinner) 125 Strip 6 11/13/2023 Active Ebook [employer]ue [employer] - is now ClipCard Lancets 30GIndications:Diet controlled gestational diabetes mellitus (GDM) [...] as of this encounter (statuses as of 11/15/2023) Active Problems Problem Noted Date Diagnosed Date [...] 10:38 AM 100-G GESTATIONAL GLUCOSE, FASTING - YAYOER 93 11/12/2023 07:35 AM 11/15/23: MFM ADAPT consult complete. Enrolled in Current Health. Instructions provided to report blood sugars each week for MFM review Last Assessment & Plan: CONSIDERATIONS: Reviewed etiology [...] Recommend nutrition consult with RDN (Registered Dietitian Oil Inspector). Lifestyle changes are also indicated including optimizing [...] Overview: The patient's pre-gravid BMI is 33.20. Depression complicating , antepartum Overview: Depression managed [...] as of this encounter (statuses as of 11/15/2023) Resolved Problems Problem Noted Date Diagnosed Date [...] as of this encounter (statuses as of 11/15/2023) Immunizations Name Administration Dates Next Due Covid-19 [...] money to get more. Never true 06/17/2023 [place] Depression Scale Answer Date Recorded [place] Depression Scale Total 7 07/25/2023 The thought of harming myself has occurred to me . Never 07/25/2023 Estimated Date of Delivery Comme nts Yes 01/30/2024 Based on Ultraso und Sex and Gender Information Value Date Recorded Sex Assigned at Female 02/17/2022 11:34 AM EDT Gender Identity Female 02/17/2022 11:34 AM EDT Sexual Orientation Straight 02/17/2022 11 :34 AM EDT Job Start Date Occupation Industry Not on file Not on file Not on file documented as of this encounter Progress Notes * Katie Hong PA-C - 11/15/2023 4:10 PM EST 29w1d Patient here for acute visit d/t decreased FM. Patient messaged in earlier today regarding concernsfor movements. Advised to do FKC. Pt reports completed and did feel 10 movements in less than 2 hours. They were more like flutters, not forceful movements. Was advised to come to office for NST. ASSESSMENT assessment with Non-stress Test completed on 11/15/2023 at 29.1 weeks gestation for indicationof decreased movement heart baseline: 125 bpm Variability: Moderate Decelerations: absent Accelerations: present 10x10 given GA, 29 FM registered Contractions: None NST start time: 15:40 NST stop time: 16:03 NST strip reviewed, interpreted, and approved by OB provider, Katie Hong PA-C. NST strip stored in clinic storage file Follow up for routine OB care, keep already scheduled appt next week Recommended daily FKC, call if <10 movements in 2 hours. Katie Hong PA-C documented in this encounter Plan of Treatment Upcoming Encounters Date Type Department Care Team (Late st Contact Info) Description 11/21/2023 10:45 AM EST Office Visit Gynecology/Obstetrics [facility] [address] [place] [address] Naima Xavier CRNP [address] [place] [address] 11/26/2023 10:30 AM EST Office Visit Broke Beater Operator OB Maternal Medicine [facility] Alvin Chowdary [address] [place] [address] Dr Asencio [address] [place] [place] [address] Kemar Mendez MD [address] [facility] [address] 11/26/2023 10:30 AM EST Imaging Maternal Medicine [facility] Alvin Chowdary [address] [place] [address] Dr Asencio [address] [place] [address] 12/11/2023 8:00 AM EST Telemedicine Virtual, Nutrition Services [address] [place] [address] Cheli Thorne, RDN [address] [place] [address] [place] [address] 02/25/2024 12:40 PM EDT Office Visit [facility] [place] [address] [phone] iMlana Marques PA-C [address] [place] [phone] Health Maintenance Due Date Last Done Comments Depression Screening 08/05/2021 08/05/2020 COVID-19 Vaccine (2 2022-24 season) 2023 01/19/2021 Diabetes Screening 06/12/2026 06/12/2023, [...]
--- OUTSIDE RECORDS SUMMARY | 2024-01-22 10:36 | External Medical Summary | Summary of Care ---
Author Name Unknown Organization [facility] Address [address] [place] [address] Phone [phone] Care Team Providers Care Accelerator Operator Name Role Phone Unavailable Primary Care Provider Unavailabl e Encounter Details Date Type Department Care Team (Late st Contact Info) Description 11/26/2023 10:30 AM EST Office Visit [facility] Alvin Chowdary [address] [place] [address] [address] [place] [address] Kemar Mendez MD [address] [place], [place] [id number] Multigravida of advanced maternal age in third trimester*; Diet controlled gestational diabetes mellitus (GDM) in third trimester; Depression complicating , antepartum; Obesity in , antepartum Allergies Active Allergy Reactions Criticality Noted Date Comments No Known Drug Allergy 08/08/2010 documented as of this encounter (statuses as of 11/26/2023) Medications Medication Sig Dispensed Refills Start Date [...] the morning. 90 Tablet 1 08/03/2023 Active Atlas Powered Flex System w/Device KitIndications:Diet controlled gestational diabetes mellitus (GDM) in third trimester Use to test blood sugars 4 times daily (fasting, 1 hour after breakfast, lunch, and dinner) 1 Kit 0 11/13/2023 Active Atlas Powered In Vitro Strip (Glucose Blood)Indications:Diet controlled gestational diabetes mellitus (GDM) in third trimester Use to test blood sugars 4 times daily (fasting, 1 hour after breakfast, lunch, and dinner) 125 Strip 6 11/13/2023 Active Playground Energy DelAllocade Lancets 30GIndications:Diet controlled gestational diabetes mellitus (GDM) [...] as of this encounter (statuses as of 11/26/2023) Active Problems Problem Noted Date Diagnosed Date [...] blood sugars each week for MFM review 12/15/23-stable Last Assessment & Plan: CONSIDERATIONS: Reviewed etiology [...] Recommend nutrition consult with RDN (Registered Dietitian Archeologist Classical). Lifestyle changes are also indicated including optimizing [...] as of this encounter (statuses as of 11/26/2023) Resolved Problems Problem Noted Date Diagnosed Date [...] as of this encounter (statuses as of 11/26/2023) Immunizations Name Administration Dates Next Due Covid-19 [...] money to get more. Never true 06/17/2023 [place] Depression Scale Answer Date Recorded [place] Depression Scale Total 7 11/21/2023 The thought [...] as of this encounter Progress Notes * Kemar Mendez MD - 11/26/2023 10:26 AM EST MATERNAL MEDICINE VISIT Lisseth Longoria is at 30w5d who presents to [facility] for an ultrasound and follow-up of her high risk . The patient is currently 30 weeks and 5 days gestation with gestational diabetes controlled by dietalone and advanced maternal age. She comes in for an evaluation of anatomy. She is being seen today by Maternal- Medicine for the following reasons: Problem List Items Addressed This Visit Obesity in , antepartum I reviewed the ultrasound with her. The [...] alone, there is no clinical indication for returnat this time. Depression complicating , antepartum AMA (advanced maternal age) multigravida 35+ - Primary Diet controlled gestational diabetes mellitus (GDM) in third trimester We reviewed today's ultrasound findings. (For full report, please refer to ultrasound report provided separately). Ms. Longoria's questions were answered to her satisfaction. Ms. Longoria was instructed to notify her primary electronic scanner operator if she felt regular contractions (approximately every 10 mins), leaking of fluid, vaginal bleeding or if movement decreased. Thank you for allowing us to participate in the care of this patient. Please call with any questions. I spent 15 minutes with Ms. Longoria of which greater than 50% was spent in face to face consultation and coordination of care for the above. Kemar Mendez MD 11/26/2023 10:26 AM documented in this encounter Miscellaneous Notes * Assessment & Plan Note - Kemar Mendez MD - 11/26/2023 11:13 AM EST Associated Problem(s): Obesity in , antepartum I reviewed the ultrasound with her. The [...] alone, there is no clinical indication for returnat this time. documented in this encounter Plan of Treatment Upcoming Encounters Date Type Department Care Team (Late st Contact Info) Description 12/05/2023 8:30 AM EST Office Visit Gynecology/Obstetrics [facility] 132 [facility] [place] [address] Naima Xavier CRNP 132 [facility] [place] [address] 12/11/2023 8:00 AM EST Telemedicine Virtual, Nutrition Services [address] [place] [address] Cheli Thorne RDN [address] [place] [address] [place] [address] 02/25/2024 12:40 PM EDT Office Visit [address] [place] [phone] Milana Marques PA-C 21 [facility] [place] [address] Health Maintenance Due Date Last Done Comments [...] as of this encounter Visit Diagnoses Diagnosis Multigravida of advanced maternal age in third trimester- Primary Diet controlled gestational diabetes mellitus (GDM) in third trimester Depression complicating , antepartum Mental disorders of mother, antepartum Obesity in , antepartum Obesity complicating , [...]
--- OUTSIDE RECORDS SUMMARY | 2024-01-22 10:36 | External Medical Summary | Summary of Care ---
Author Name Unknown Organization [facility] Address [address] [facility] [place] [address] Phone [phone] Care Team Providers Care Order Management Specialist Name Role Phone Unavailable Primary Care Provider Unavailabl e Reason for Visit * Reason Comments Return Visit Encounter Details Date Type Department Care Team (Late st Contact Info) Description 11/21/2023 9:15 AM EST Office Visit Gynecology/Obstetric s [facility] [address] [place] [address] Naima Xavier CRNP [address] [place] [address] Supervision of high risk in third trimester*; [...] as of this encounter (statuses as of 11/21/2023) Medications Medication Sig Dispensed Refills Start Date [...] the morning. 90 Tablet 1 08/03/2023 Active PlusmoTouch Verio Flex System w/Device KitIndications:Diet controlled gestational diabetes mellitus (GDM) in third trimester Use to test blood sugars 4 times daily (fasting, 1 hour after breakfast, lunch, and dinner) 1 Kit 0 11/13/2023 Active PlusmoTouch Verio In Vitro Strip (Glucose Blood)Indications:Diet controlled gestational diabetes mellitus (GDM) in third trimester Use to test blood sugars 4 times daily (fasting, 1 hour after breakfast, lunch, and dinner) 125 Strip 6 11/13/2023 Active PlusmoTouch Delica Lancets 30GIndications:Diet controlled gestational diabetes mellitus [...] as of this encounter (statuses as of 11/21/2023) Active Problems Problem Noted Date Diagnosed Date [...] Recommend nutrition consult with RDN (Registered Dietitian Bulk Fluids Handler). Lifestyle changes are also indicated including optimizing [...] as of this encounter (statuses as of 11/21/2023) Resolved Problems Problem Noted Date Diagnosed Date [...] as of this encounter (statuses as of 11/21/2023) Immunizations Name Administration Dates Next Due Covid-19 [...] money to get more. Never true 06/17/2023 [place] Depression Scale Answer Date Recorded [place] Depression Scale Total 7 11/21/2023 The thought [...] Reading Time Taken Comments Blood Pressure 102/64 11/21/2023 9:37 AM EST Pulse - - Temperature - - Respiratory Rate - - Oxygen Saturation - - Inhaled Oxygen Concentration - - Weight 83.5 kg (184 lb) 11/21/2023 9:37 AM EST Height - - Body Mass Index 35.94 09/17/2023 2:25 PM EST documented in this encounter Progress Notes * Lashell Miller LPN - 11/21/2023 9:37 AM EST 30w0d Denies vaginal bleeding/rom + movement No new concerns * Naima Xavier CRNP - 11/21/2023 9:32 AM EST 30w0d GDMA 1, followed by RAFI/ADAPT. Has a growth scan with MFM scheduled next week. Baby active. No ctx, leaking, bleeding. Plans to attend hospital tour in the coming weeks. 2 week return SAVAGE Tyson documented in this encounter Plan of Treatment Upcoming Encounters Date Type Department Care Team (Late st Contact Info) Description 11/26/2023 10:30 AM EST Office Visit [facility] Alvin Chowdary [address] [place] [address] Dr [address] [place] [address] Kemar Mendez MD [address] [facility] [address] 11/26/2023 10:30 AM EST [facility] Alvin Chowdary [address] [place] [address] [address] [place] [address] 12/05/2023 8:30 AM EST Office Visit Gynecology/Obstetrics [facility] [address] [facility] [place] [address] Naima Xavier CRNP [address] [place] [address] 12/11/2023 8:00 AM EST Telemedicine Virtual, Nutrition Services [address] [place] [address] Cheli Thorne, RDN [address] [place] [address] [place] [address] 02/25/2024 12:40 PM EDT Office Visit [facility] [place] [address] Milana Marques PA-C [address] [facility] [place] [address] Health Maintenance Due Date Last Done [...]
--- OUTSIDE RECORDS SUMMARY | 2024-01-22 10:36 | External Medical Summary | Summary of Care ---
Author Name Unknown Organization [facility] Address [address] [place] [address] Phone [phone] Care Team Providers Care Site Medical Director Name Role Phone Unavailable Primary Care Provider Unavailabl e Reason for Visit * Reason Onset Date Comments Home Monitoring Orders Only 11/18/2023 Encounter Details Date Type Department Care Team (Late st Contact Info) Description 11/18/2023 Home Monitoring Care Coordination [address] [place], [place] [id number] Nya Rice, SAVAGE [address] [place] [address] Diet controlled gestational diabetes mellitus (GDM) in third trimester* Allergies Active Allergy Reactions Criticality Noted Date Comments No Known Drug Allergy 08/08/2010 documented as of this encounter (statuses as of 11/18/2023) Medications Medication Sig Dispensed Refills Start Date [...] and dinner) 1 Kit 0 11/13/2023 Active MessageMe In Vitro Strip (Glucose Blood)Indications:Diet controlled gestational diabetes mellitus (GDM) in third trimester Use to test blood sugars 4 times daily (fasting, 1 hour after breakfast, lunch, and dinner) 125 Strip 6 11/13/2023 Active FlexEl Lancets 30GIndications:Diet controlled gestational diabetes mellitus (GDM) [...] as of this encounter (statuses as of 11/18/2023) Active Problems Problem Noted Date Diagnosed Date [...] Recommend nutrition consult with RDN (Registered Dietitian Pipefitter Welder). Lifestyle changes are also indicated including [...] as of this encounter (statuses as of 11/18/2023) Resolved Problems Problem Noted Date Diagnosed Date [...] as of this encounter (statuses as of 11/18/2023) Immunizations Name Administration Dates Next Due Covid-19 [...] money to get more. Never true 06/17/2023 [place] Depression Scale Answer Date Recorded [place] Depression Scale Total 7 07/25/2023 The thought [...] as of this encounter Progress Notes * Frederick [facility] Gas Turbine Mechanic - 11/18/2023 9:36 AM EST Patient has been successfully enrolled to the [id number] Diabetes Management in program. Standard alarm settings have been set as follows: Singular glucose level > 200 Singular glucose level < 60 Patient has been advised to take blood sugar four times a day (fasting upon waking, and one hour after each meal). Patient has been oriented to remote patient monitoring, assisted with initial device set-up, and provided with instruction and education regarding the program. Patient understands that this monitoring should not be used as a replacement for emergency and/or urgent care. If patient experiences any urgent symptoms, they are aware to call office/manager collection provider for additional instructions. In emergency situations, they will report directly to the ED for further evaluation. If you would like to customize the alert parameters and/or instructions for this patient, please let me know and we can have them changed documented in this encounter Plan of Treatment Upcoming Encounters Date Type Department Care Team (Late st Contact Info) Description 11/21/2023 10:45 AM EST [facility] [place] [address] Naima Xavier CRNP [address] [place] [address] 11/26/2023 10:30 AM EST Office Visit Marketing Senior Recru[facility] Alvin Chowdary [address] [place] [address] [address] [place] [address] Kemar Mendez MD [address] [place] [address] 11/26/2023 10:30 AM EST [facility] Alvni Chowdary [address] [place] [address] [address] [place] [address] 12/11/2023 8:00 AM EST Telemedicine Virtual, Nutrition Services [address] [facility] [place] [address] Cheli Thorne, RDN [address] [place] [address] 02/25/2024 12:40 PM EDT Office Visit [facility] [address] [address] Milana Marques PA-C [address] [place] [id number] Health Maintenance Due Date Last Done Comments [...] diabetes mellitus (GDM) in third trimester- Primary documented in this encounter Advance Directives Latest Code Status on File Code Status Date Activated Date Inactivated Comments Full Code 06/08/2021 11:52 PM 06/09/2021 5:44 AM This order reflects the patients wishes and were consensually agreed upon. Question Answer Comments Discussion of Advance Directives occurred with: Not Discussed
--- OUTSIDE RECORDS SUMMARY | 2024-01-22 10:36 | External Medical Summary | Summary of Care ---
Author Name Unknown Organization [facility] Address [address] [facility] [place] [address] Phone [phone] Care Team Providers Care Operations Manager/Coordinator Name Role Phone Unavailable Primary Care Provider Unavailabl e Reason for Visit * Reason Comments Return Visit Encounter Details Date Type Department Care Team (Late st Contact Info) Description 12/05/2023 8:30 AM EST Office Visit Gynecology/Obstetric s [facility] [address] [place] [address] Naima Xavier CRNP [address] [place] [address] Supervision of high risk in third trimester*; [...] as of this encounter (statuses as of 12/05/2023) Medications Medication Sig Dispensed Refills Start Date [...] the morning. 90 Tablet 1 08/03/2023 Active [employer] Private LimitedTouch Verio Flex System w/Device KitIndications:Diet controlled gestational diabetes mellitus (GDM) in third trimester Use to test blood sugars 4 times daily (fasting, 1 hour after breakfast, lunch, and dinner) 1 Kit 0 11/13/2023 Active [employer] Private LimitedTouch Verio In Vitro Strip (Glucose Blood)Indications:Diet controlled gestational diabetes mellitus (GDM) in third trimester Use to test blood sugars 4 times daily (fasting, 1 hour after breakfast, lunch, and dinner) 125 Strip 6 11/13/2023 Active [employer] Private LimitedTouch Delica Lancets 30GIndications:Diet controlled gestational diabetes mellitus [...] as of this encounter (statuses as of 12/05/2023) Active Problems Problem Noted Date Diagnosed Date [...] A few PP elevations. Continue diet control. Last Assessment & Plan: [...] Recommend nutrition consult with RDN (Registered Dietitian Upholstery Mechanic). Lifestyle changes are also indicated including optimizing [...] as of this encounter (statuses as of 12/05/2023) Resolved Problems Problem Noted Date Diagnosed Date [...] as of this encounter (statuses as of 12/05/2023) Immunizations Name Administration Dates Next Due Covid-19 [...] money to get more. Never true 06/17/2023 Randall Depression Scale Answer Date Recorded Randall Depression Scale Total 7 11/21/2023 The thought [...] Sign Reading Time Taken Comments Blood Pressure 100/60 12/05/2023 8:37 AM EST Pulse - - Temperature - - Respiratory Rate - - Oxygen Saturation - - Inhaled Oxygen Concentration - - Weight 83.3 kg (183 lb 9.6 oz) 12/05/2023 8:37 A M EST Height - - Body Mass Index 35.86 09/17/2023 2:25 PM EST documented in this encounter Progress Notes * Naima Xavier CRNP - 12/05/2023 8:40 AM EST 32w0d Baby moving well, no leaking/bleeding or ctx. Recommend belly band for discomfort. GDM managed by ADAPT. Had a recent growth scan with MFM, baby is currently breech. Will check u/s closer to term. 2 week return SAVAGE Tyson * Lashell Miller LPN - 12/05/2023 8:37 AM EST 32w0d Denies vaginal bleeding/rom + movement Noticing some lt sided abdominal pain- comes and goes documented in this encounter Plan of Treatment Upcoming Encounters Date Type Department Care Team (Late st Contact Info) Description 12/11/2023 8:00 AM EST Telemedicine Virtual, Nutrition Services [address] [facility] [place] [address] Cheli Thorne, RDN [address] [place] [address] 12/18/2023 11:30 AM EST Office Visit Gynecology/Obstetrics [facility] [address] [place] [address] Katie Hong PA-C [address] [place] [address] 02/25/2024 12:40 PM EDT Office Visit [facility] [place] [address] [place] [address] Milana Marques PA-C [address] [place] [phone] Health Maintenance Due Date Last Done Comments [...]
--- OUTSIDE RECORDS SUMMARY | 2024-01-22 10:37 | External Medical Summary ---
Author Name Unknown Address Unknown Organization K01:[facility] [place] [address] [facility] [address] Laboratory Report Ordering Provider Test Date Status RANDY GRADY 11/12/2023 07:35:29 Final Based on ACOG guideline, ges tational diabetes mellitus is diagnosed when any of the following is met:
Fasting is greater than or equal to 95 mg/dL
1 hour is greater than or equal to 180 mg/dL
2 hour is greater than or equal to 155 mg/dL
3 hour is greater than or equal to 140 mg/dL Observation Date Value Abnormality Reference (Units ) Status Glucose, fasting 11/12/2023 07:35:29 93 70- 94 (mg/dL) Final Performing Location [facility] [place] [address] [facility] [address]
--- OUTSIDE RECORDS SUMMARY | 2024-01-22 10:37 | External Medical Summary ---
Author Name Unknown Address Unknown Organization K01:[facility] [place] [address] [place] [address] Laboratory Report Ordering Provider Test Date Status YSABELBACKER 11/12/2023 07:35:29 Final Observation Date Value Abnormality Reference (Units ) Status Retic, % (auto) 11/12/2023 07:35:29 2.60 Above high normal 0.80-1.90 (%) Final Reticulocytes, Absolute 11/12/2023 07:35:29 96.2 31.3-100.1 (K/uL) Final Reticulocyte fraction, immature 11/12/2023 07:35:29 29.9 Above high normal 2.5-20.6 (%) Final Reticulocyte HGB 11/12/2023 07:35:29 34.1 29.7-37.4 (pg) Final Performing Location [facility] [place] - [address] [place] [address]
--- OUTSIDE RECORDS SUMMARY | 2024-01-22 10:37 | External Medical Summary | Summary of Care ---
Author Name Unknown Organization [facility] Address [address] [facility] [address] Phone [phone] Care Team Providers Care Senior Licensing Manager Name Role Phone Unavailable Primary Care Provider Unavailabl e Reason for Referral * Evaluate & Treat - Unlimited Visits (Within 10 days (routine)) - Pending Review Specialty Diagnoses / Procedures Referred By Conterick ro Referred To Contact Talent Associate / Nutrition Services Diagnoses Diet controlled gestational diabetes mellitus (GDM) in third trimester Ysabel Xavier CRNP [address] [place] [address] Referral ID Status Reason Start Date Expiration Date Visits Requested Visits Authorized [id number] Pending Review Specialty Services Required 11/13/[phone] Question Answer Is the patient ? Yes Referral Priority Within 10 days (routine) Where should this appointment be scheduled? [facility] Comments This referral is for Diabetes Self-Management Training (DSMT) by a recognized [place] [employer] Association (ADA) nurse educator: Nurse (RN), Registered Dietitian Valve Maker (RDN), and/or Diabetes Medical Nutrition Therapy (MNT) Management (dietitian only). Diabetes educators are responsible for assessing the participant's diabetes education needs, and providing diabetes self-management training in accordance with the standards set by the ADA for DSMT. Any adjustment in diabetes therapy will be made within the guidelines of standards of practice and [facility] approved policies and procedures. I understand that the nurse educator will keep me informed. Areas of Education: Pathophysiology Nutrition Physical Activity Medications Monitoring Acute Complications Chronic Complications Psychosocial Management Promote Health/Behavior Change Participant will be offered 1:1 education training if there is a lack of classes available within 2 months. Providers can also order 1:1 training if indicated for participant for the following reasons: 1:1 Training for Insulin Initiation Participant Inappropriate for Class Setting By my electronic signature, I understand that my patient will be offered the comprehensive ADA content area above unless deemed not appropriate of I specify otherwise here: * Evaluate & Treat - Unlimited Visits (Within 10 days (routine)) - Pending Review Specialty Diagnoses / Procedures Referred By Grupo ro Referred To Contact Obstetrics/Gynecology / Maternal Medicine Diagnoses Diet controlled gestational diabetes mellitus (GDM) in third trimester Ysabel Xavier CRNP [address] [place] [address] Referral ID Status Reason Start Date Expiration Date Visits Requested Visits Authorized [id number] Pending Review Specialty Services Required 11/13/[phone] Question Answer Referral Priority Within 10 days (routine) Has the patient had a viability scan? Yes Date performed 07/09/2023 Location performed Radiology Reason for referral Diabetes Diabetes type Gestational [facility] should this appointment be scheduled? [facility] Comments /Para: LMP: Patient's last menstrual period was 05/04/2023 (approximate). Patient is . CHANTALE: 01/30/2024, by Ultrasound Pre-Gravid BMI: 33.20 Encounter Details Date Type Department Care Team (Late st Contact Info) Description 11/13/2023 [facility] [address] [place] [address] Ysabel Xavier CRNP [address] [place] [address] Diet controlled gestational diabetes mellitus (GDM) in third trimester*; Antepartum anemia complicating Allergies Active Allergy Reactions Criticality Noted Date Comments No Known Drug Allergy 08/08/2010 documented as of this encounter (statuses as of 11/13/2023) Medications Medication Sig Dispensed Refills Start Date [...] the morning. 90 Tablet 1 08/03/2023 Active HowStuffWorks Verio Flex System w/Device KitIndications:Diet controlled gestational diabetes mellitus (GDM) in third trimester Use to test blood sugars 4 times daily (fasting, 1 hour after breakfast, lunch, and dinner) 1 Kit 0 11/13/2023 Active FinsphereTouch Verio In Vitro Strip (Glucose Blood)Indications:Diet controlled gestational diabetes mellitus (GDM) in third trimester Use to test blood sugars 4 times daily (fasting, 1 hour after breakfast, lunch, and dinner) 125 Strip 6 11/13/2023 Active FinsphereTouch Delica Lancets 30GIndications:Diet controlled gestational diabetes mellitus [...] as of this encounter (statuses as of 11/13/2023) Active Problems Problem Noted Date Diagnosed Date Diet controlled gestational diabetes mellitus (GDM) in third trimester 11/13/2023 Antepartum anemia complicating 024 Dysplasia of cervix, low grade (KATIE 1) 01/22/202 4 Overview: Repeat pap 10/2024 COVID-19 affecting , antepartum 024 Overview: + test on 10/30/23 ASCUS with positive high risk HPV cervical 08/02 Normal 07/25/2023 Obesity in , antepartum 07/25/2023 Overview: The patient's pre-gravid BMI is 33.20. Depression complicating , antepartum with history of ectopic 02/2023 AMA (advanced maternal age) multigravida 35+ 02/2023 Chronic allergic rhinitis 08/05/2020 Cocaine use 08/17/2019 [...] as of this encounter (statuses as of 11/13/2023) Resolved Problems Problem Noted Date Diagnosed Date [...] as of this encounter (statuses as of 11/13/2023) Immunizations Name Administration Dates Next Due Covid-19 [...] drink = 0.6 oz pur e alcohol) Glass of wine daily PHQ-2 Answer Date Recorded PHQ-2 Score 2 [...] money to get more. Never true 06/17/2023 [place] Depression Scale Answer Date Recorded [place] Depression Scale Total 7 07/25/2023 The thought [...] encounter Miscellaneous Notes * Telephone Encounter - Backer, SAVAGE John - 11/13/2023 11:29 AM EST Signed Prescriptions: Disp Refills [employer] Flex System w/Device Kit 1 Kit 0 Sig: Use to testblood sugars 4 times daily (fasting, 1 hour after breakfast, lunch, and dinner)Authorizing Provider: YSABEL XAVIER OneTouch Verio In Vitro Strip (Glucose Blo*125 St*6 Sig: Use to test blood sugars 4 times daily (fasting, 1 hour after breakfast, lunch, and dinner)Authorizing Provider: YSABEL XAVIER OneTouch Delica Lancets 30G 200 Ea*6 Sig: Use to test blood sugars 4 times daily (fasting, 1 hour after breakfast, lunch, and dinner)Authorizing Provider: YSABEL XAVIER Ferrous Sulfate 325 (65 Fe) MG Oral Tablet*60 Tab*4 Sig: Take 1 Tablet by mouth in the morning and 1 Tablet before bedtime.Authorizing Provider: YSABEL XAVIER * Telephone Encounter - Cheli Cheung RN - 11/13/2023 11:25 AM ESTPending Prescriptions: Disp Refills OneTouch Verio Flex System w/Device Kit 1 Kit 0 Sig: Use to test blood sugars 4 times daily (fasting, 1 hour after breakfast, lunch, and dinner) OneTouch Verio In Vitro Strip (Glucose Blo*125 St*6 Sig: Use to test blood sugars 4 times daily (fasting, 1 hour after breakfast, lunch, and dinner) OneTouch Delica Lancets 3 0G 200 Ea*6 Sig: Use to test blood sugars 4 times daily (fasting, 1 hour after breakfast, lunch, and dinner) Ferrous Sulfate 325 (65 Fe) MG Oral Tablet*60 Tab*4 Sig: Take 1 Tablet by mouth in the morning and 1 Tablet before bedtime. * Telephone Encounter - Cheli Cheung RN - 11/13/2023 11:24 AM EST Spoke with pt. She is aware. * Telephone Encounter - Ysabel Xavier CRNP - 11/13/2023 7:42 AM EST 2 elevated glucose readings, diagnoses GDM. Will need to start checking blood sugars 4x/day (morning after 8-10 hr fast with goal <95, 1 hr after starting each meal with goal <140). Sending a referral to MFM and nurses educator; they will provide more information on GDM and teach how to use a glucometer if she is not familiar with it. She can look at the One Touch website for glucometer instructions if she wants to start checking before her consult. +anemia as well, will send an iron supplement to take twice a day. Take at least 1 hr separate fromPNV and food w/dairy. Can use OTC Colace if it makes her constipated. Please confirm pharmacy and let me know. SAVAGE Tyson documented in this encounter Plan of Treatment Upcoming Encounters Date Type Department Care Team (Late st Contact Info) Description 11/21/2023 10:45 AM EST [facility] [address] [place] [address] Ysabel Xavier CRNP [address] [place] [address] 02/25/2024 12:40 PM EDT Office Visit [address] [place] [phone] Milana Marques PA-C [address] [place] [address] Scheduled Orders Name Type Priority Associated Diagnoses Orde r Schedule MFM US MATERNAL 1ST FETUS Medical Imaging Routine Diet controlled gestational diabetes mellitus (GDM) in third trimester Expected: 11/13/2023, Expires: 12/14/2024 Scheduled Referrals Name Type Priority Associated Diagnoses Orde r Schedule MATERNAL MEDICINE REFERRAL OP Referral Within 10 days (routine) Diet controlled gestational diabetes mellitus (GDM) in third trimester Ordered: 11/13/2023 DIABETES MANAGEMENT EDUCATION (ADA) REFERRAL Referral Within [...] diabetes mellitus (GDM) in third trimester- Primary Antepartum anemia complicating Anemia, antepartum documented in this encounter Advance Directives Latest Code Status on File Code Status Date Activated Date Inactivated Comments Full Code 06/08/2021 11:52 PM 06/09/2021 5:44 AM This order reflects the patients wishes and were consensually agreed upon. Question Answer Comments Discussion of Advance Directives occurred with: Not Discussed
--- OUTSIDE RECORDS SUMMARY | 2024-01-22 10:37 | External Medical Summary ---
Author Name Unknown Address Unknown Organization K01:[facility] - [address] [place] [address] Laboratory Report Ordering Provider Test Date Status RANDY GRADY 11/12/2023 07:35:29 Final Observation Date Value Abnormality Reference (Units ) Status Vitamin B12 11/12/2023 07:35:29 [id number] (pg/mL) Final Performing Location LAB[facility]ATORY [facility] - [address] [place] [address]
--- OUTSIDE RECORDS SUMMARY | 2024-01-22 10:37 | External Medical Summary ---
Author Name Unknown Address Unknown Organization K01:LAB[facility]ATORY [facility] [place] - [address] [place] [address] Laboratory Report Ordering Provider Test Date Status RACHEL GRADYER 11/12/2023 09:38:48 Final Observation Date Value Abnormality Reference (Units ) Status Glucose, 2-hr post glucose challenge 11/12/2023 09:38:48 177 Above high normal 70-154 (mg/dL) Final Performing Location LAB[facility]ATORY [facility] [place] - [address] [place] [address]
--- OUTSIDE RECORDS SUMMARY | 2024-01-22 10:37 | External Medical Summary ---
Author Name Unknown Address Unknown Organization K01:LABORATORY [facility] [place] - [address] [place], [place] [address] [address] Laboratory Report Ordering Provider Test Date Status YSABEL,BACKER 11/12/2023 07:35:29 Final Observation Date Value Abnormality Reference (Units ) Status WBC, Total 11/12/2023 07:35:29 7.85 4.00-10.8 0 (K/uL) Final RBC 11/12/2023 07:35:29 3.68 3.85-5.15 (M/uL) Final Hemoglobin 11/12/2023 07:35:29 11.1 Below low normal 12 .0-15.3 (g/dL) Final Anemia reflex testing trigge rs on a HGB < 12.0 for Females and HGB < 13.0 for Males in accordance with the WHO Anemia Guidelines
Anemia reflex testing triggers on a HGB < 12.0 for Females and HGB < 13.0 for Males in accordance with the WHO Anemia Guidelines HCT 11/12/2023 07:35:29 35.0 Below low normal 36. 0-45.2 (%) Final MCV 11/12/2023 07:35:29 95.1 81.5-97.5 (fL) Final MCH 11/12/2023 07:35:29 30.2 27.0-34.0 (pg) Final MCHC 11/12/2023 07:35:29 31.7 32.0-36.0 (g/dL) Final RDW 11/12/2023 07:35:29 13.2 11.5-15.5 (%) Final Platelets 11/12/2023 07:35:29 317 140-400 (K /uL) Final MPV 11/12/2023 07:35:29 9.4 6.6-11.1 ( fL) Final Nucleated erythrocytes/100 leukocytes [Ratio] in Blood by Automated count 11/12/2023 07:35:29 0 <=0 (/100 WBCs) Final Performing Location LAB[facility]ATORY [facility] - [address] [facility] [address]
--- OUTSIDE RECORDS SUMMARY | 2024-01-22 10:37 | External Medical Summary ---
Author Name Unknown Address Unknown Organization K01:LABORATORY [facility] [place] - [address] [place] [address] Laboratory Report Ordering Provider Test Date Status RANDY GRADY 11/12/2023 08:37:57 Final Observation Date Value Abnormality Reference (Units ) Status Glucose [Mass/volume] in Serum or Plasma --1 hour post dose glucose 11/12/2023 08:37:57 179 70-179 (mg/dL) Final Performing Location LABORATORY [facility] [place] - [address] [place] [address]
--- OUTSIDE RECORDS SUMMARY | 2024-01-22 10:37 | External Medical Summary | Summary of Care ---
Author Name Unknown Organization [facility] Address [address] [place] [address] Phone [phone] Care Team Providers Care Office Secretary Name Role Phone Unavailable Primary Care Provider Unavailabl e Reason for Visit * Reason Onset Date Comments Referral 11/13/2023 Encounter Details Date Type Department Care Team (Late st Contact Info) Description 11/13/2023 Telephone National Account Director Obstetrics Maternal Medicine, [place] [address] [place] [address] [place], Nurse National Account Director [facility] [address] [place] [address] Referral Allergies Active Allergy Reactions Criticality Noted Date Comments No Known Drug Allergy 08/08/2010 documented as of this encounter (statuses as of 11/14/2023) Medications Medication Sig Dispensed Refills Start Date [...] the morning. 90 Tablet 1 08/03/2023 Active SynthegoToEl Corralio Flex System w/Device KitIndications:Diet controlled gestational diabetes mellitus (GDM) in third trimester Use to test blood sugars 4 times daily (fasting, 1 hour after breakfast, lunch, and dinner) 1 Kit 0 11/13/2023 Active SynthegoTouch Verio In Vitro Strip (Glucose Blood)Indications:Diet controlled gestational diabetes mellitus (GDM) in third trimester Use to test blood sugars 4 times daily (fasting, 1 hour after breakfast, lunch, and dinner) 125 Strip 6 11/13/2023 Active SynthegoTouch Delica Lancets 30GIndications:Diet controlled gestational diabetes mellitus [...] as of this encounter (statuses as of 11/14/2023) Active Problems Problem Noted Date Diagnosed Date Diet controlled gestational diabetes mellitus (GDM) in third trimester 11/13/2023 Overview: Diagnosed at 28 weeks Nutrition consult ordered Lab Results Component Value Date/Time 50-G GESTATIONAL GLUCOSE, 1 HOUR - [facility] 149 (H) 08/19/2023 10:36 AM 100-G GESTATIONAL GLUCOSE, 1 HOUR - [facility] 179 11/12/2023 08:37 AM 100-G GESTATIONAL GLUCOSE, 2 HOUR - [facility] 177 (H) 11/12/2023 09:38 AM 100-G GESTATIONAL GLUCOSE, 3 HOUR - [facility] 147 (H) 11/12/2023 10:38 AM 100-G GESTATIONAL GLUCOSE, FASTING - [facility] 93 11/12/2023 07:35 AM Antepartum anemia complicating 024 Dysplasia of cervix, [...] as of this encounter (statuses as of 11/14/2023) Resolved Problems Problem Noted Date Diagnosed Date [...] as of this encounter (statuses as of 11/14/2023) Immunizations Name Administration Dates Next Due Covid-19 [...] money to get more. Never true 06/17/2023 [place] Depression Scale Answer Date Recorded [place] Depression Scale Total 7 07/25/2023 The thought [...] encounter Miscellaneous Notes * Telephone Encounter - Radha Sykes OSA - 11/13/2023 1:15 PM EST Spoke with Lisseth, appointment scheduled. Patient aware of date, time and location of Maternal FetalMedicine appointment. * Telephone Encounter - Cheli Taylor CCMA - 11/13/2023 1:05 PM EST Estimated Date of Delivery: 02/06/24 Please schedule for 45 MINUTE ADAPT WITH GENERAL MANAGER FOOD, in time frame of within 1 week at location [facility] with the indication of GDM. Please schedule anatomy within 2-3 weeks. Referring Provider: Naima Xavier CRNP documented in this encounter Plan of Treatment Upcoming Encounters Date Type Department Care Team (Late st Contact Info) Description 11/15/2023 9:00 AM EST Telemedicine National Account Director Obstetrics Maternal Medicine, [place] [address] [facility] [address] [place] [address] Nya Rice CRNP [address] [facility] [address] [place] [address] 11/21/2023 10:45 AM EST Office Visit Gynecology/Obstetrics [facility] [address] [facility] [place] [address] Naima Xavier CRNP [address] [place] [place] [address] 11/26/2023 10:30 AM EST Office Visit National Account Director OB Maternal Medicine [facility] Alvin Chowdary [address] [place] [address] Dr [address] [place] [address] Kemar Mendez MD [address] [place] [address] 11/26/2023 10:30 AM EST Imaging Maternal Medicine [facility] Alvin Chowdary [address] [place] [address] Dr [address] [place] [address] 12/11/2023 8:00 AM EST Telemedicine Virtual, Nutrition Services [address] [place] [address] Cheli Thorne, LIBRADO [address] [place] [address] [place] [address] 02/25/2024 12:40 PM EDT Office Visit [facility] [place] [phone] Milana Marques PA-C [address] [place] [address] Health Maintenance Due Date Last Done Comments [...]
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
--- OUTSIDE RECORDS SUMMARY | 2024-01-22 10:37 | External Medical Summary ---
Author Name Unknown Address Unknown Organization K01:LABORATORY [facility] [place] - [address] [place] [address] Laboratory Report Ordering Provider Test Date Status RANDY GRADY 11/12/2023 07:35:29 Final Observation Date Value Abnormality Reference (Units ) Status Folic Acid 11/12/2023 07:35:29 >20.0 >4.5 (ng/ mL) Final Performing Location LABORATORY [facility] - [address] [place] [address]
--- OUTSIDE RECORDS SUMMARY | 2024-01-22 10:37 | External Medical Summary ---
Author Name Unknown Address Unknown Organization K01:LABORATORY [facility] [place] - [facility] [address] [place] [address] Laboratory Report Ordering Provider Test Date Status RANDY GRADY 11/12/2023 07:35:29 Final Observation Date Value Abnormality Reference (Units ) Status Reagin Ab [Presence] in Serum by RPR 11/12/2023 07:35:29 Nonreactive Nonreactive Final Performing Location LABORATORY [facility] [place] - [facility] [address] [place] [address]
--- OUTSIDE RECORDS SUMMARY | 2024-01-22 10:37 | External Medical Summary ---
Author Name Unknown Address Unknown Organization K01:[place] [facility] [place] [address] [facility] [address] Laboratory Report Ordering Provider Test Date Status YSABELBACKER 11/12/2023 07:35:29 Final Observation Date Value Abnormality Reference (Units ) Status SYNC LEUKOCYTES IN BLOOD BY AUTOMATED COUNT 11/12/2023 07:35:29 7.85 4.00-10.80 (K/uL) Final Segs 11/12/2023 07:35:29 72.5 40.0-75.0 (%) Final Lymphs % 11/12/2023 07:35:29 20.0 18.0-42.0 (%) Final Monos 11/12/2023 07:35:29 5.7 1.0-11.0 (%) Final Eosinophils 11/12/2023 07:35:29 1.0 0.0-6.0 (%) Final Basos 11/12/2023 07:35:29 0.3 0.0-2.0 (%) Final Immature Granulocyte, Percent 11/12/2023 07:35:29 0.5 0.0-2.0 (%) Final Absolute Segs 11/12/2023 07:35:29 5.69 1.80-7.70 (K/uL) Final Lymphs, absolute 11/12/2023 07:35:29 1.57 1.00-4.80 (K/ul) Final Monos, Abs 11/12/2023 07:35:29 0.45 0.00-1.10 (K/uL) Final Eos, Abs 11/12/2023 07:35:29 0.08 0.00-0.70 (K/uL) Final Basos, Abs 11/12/2023 07:35:29 0.02 0.00-0.20 (K/uL) Final Immature Granulocytes, Number 11/12/2023 07:35:29 0.04 0.00-0.20 (K/uL) Final Performing Location [facility] [place] [address] [facility] [address]
--- OUTSIDE RECORDS SUMMARY | 2024-01-22 10:37 | External Medical Summary | Summary of Care ---
Author Name Unknown Organization [facility] Address [address] [place] [address] Phone [phone] Care Team Providers Care Test Engine Evaluator Name Role Phone Unavailable Primary Care Provider Unavailabl e Reason for Visit * Reason Onset Date Comments Referral 11/13/2023 Encounter Details Date Type Department Care Team (Late st Contact Info) Description 11/13/2023 Telephone Shingle Inspector Obstetrics Maternal Medicine, [place] [address] [place] [address] [place], Nurse Shingle Inspector [facility] [address] [place] [address] Referral Allergies Active Allergy Reactions [...] the morning. 90 Tablet 1 08/03/2023 Active InSync SoftwareToPlayJamio Flex System w/Device KitIndications:Diet controlled gestational diabetes [...] and dinner) 125 Strip 6 11/13/2023 Active OneTouch Delica Lancets 30GIndications:Diet controlled gestational diabetes mellitus [...] money to get more. Never true 06/17/2023 [place] Depression Scale Answer Date Recorded [place] Depression Scale Total 7 07/25/2023 The thought [...] Please schedule for 45 MINUTE ADAPT WITH DOCTOR OF PODIATRY, in time frame of within 1 week at location [facility] with the indication of GDM. Please schedule anatomy within 2-3 weeks. Referring Provider: Naima Xavier CRNP documented in this encounter Plan of Treatment Upcoming Encounters Date Type Department Care Team ([facility] st Contact Info) Description 11/15/2023 9:00 AM EST Telemedicine Shingle Inspector Obstetrics Maternal Medicine, [place] [address] Nya Rice CRNP [address] [address] 11/21/2023 10:45 AM EST [facility] [address] [place] [address] Naima Xavier CRNP [address] [place] [address] 11/26/2023 10:30 AM EST Office Visit Shingle Inspector OB Maternal Medicine [facility] Alvin Chowdary [address] [place] [address] Dr [address] [place] [address] Kemar Mendez MD [address] [place] [address] 11/26/2023 10:30 AM EST Imaging Maternal Medicine [facility] Alvin Chowdary [address] [place] [address] Dr [address] [place] [address] 02/25/2024 12:40 PM EDT Office Visit [facility] [address] [facility] [place] [phone] Milana Marques PA-C [address] [place] [address] Health Maintenance Due Date Last Done Comments [...]
--- OUTSIDE RECORDS SUMMARY | 2024-01-22 10:37 | External Medical Summary | Summary of Care ---
Author Name Unknown Organization [facility] Address [address] [facility] [place] [address] Phone [phone] Care Team Providers Care Pacu Nurse Name Role Phone Unavailable Primary Care Provider Unavailabl e Reason for Referral * Evaluate & Treat - Unlimited Visits (Within 3 days (urgent)) - Pending Review Specialty Diagnoses / Procedures Referred By Grupo ro Referred To Contact Manufacturing Clerk Diagnoses Diet controlled gestational diabetes mellitus (GDM) in third trimester Nya Rice CRNP [address] [address] Referral ID Status Reason Start Date Expiration Date Visits Requested Visits Authorized [id number] Pending Review Specialty Services Required 11/15/2023 1 1 Question Answer Referral Priority Within 3 days (urgent) Where should this appointment be scheduled? [facility] Type Chronic Disease Management Chronic Disease Management Diabetes in Alarm Settings Standard per protocol Comments Has OneTouch Verio meter Reason for Visit * Reason Comments Consultation Gestational diabetes * Evaluate & Treat - Unlimited Visits (Within 10 days (routine)) - Authorized Specialty Diagnoses / Procedures Referred By Contac t Referred To Contact Obstetrics/Gynecology / Maternal Medicine Diagnoses Diet controlled gestational diabetes mellitus (GDM) in third trimester Naima Xavier CRNP [address] [place] [phone] Referral ID Status Reason Start Date Expiration Date Visits Requested Visits Authorized [id number] Authorized Specialty Services Required 11/13/2023 11/13/[phone] Encounter Details Date Type Department Care Team (Late st Contact Info) Description 11/15/2023 9:00 AM EST Telemedicine 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 90 Tablet 1 08/03/2023 Active [email or web address] Flex System w/Device KitIndications:Diet controlled gestational diabetes mellitus (GDM) in third trimester Use to test blood sugars 4 times daily (fasting, 1 hour after breakfast, lunch, and dinner) 1 Kit 0 11/13/2023 Active [email or web address] In Vitro Strip (Glucose Blood)Indications:Diet controlled gestational diabetes mellitus (GDM) in third trimester Use to test blood sugars 4 times daily (fasting, 1 hour after breakfast, lunch, and dinner) 125 Strip 6 11/13/2023 Active Yo Delica Lancets 30GIndications:Diet controlled gestational diabetes mellitus [...] Recommend nutrition consult with RDN (Registered Dietitian Supervisor Irrigation). Lifestyle changes are also indicated including optimizing [...] cervical 08/02 Supervision of high risk in [facility] zoraida 07/25/2023 Obesity in , antepartum 07/25/2023 [...] money to get more. Never true 06/17/2023 [place] Depression Scale Answer Date Recorded [place] Depression Scale Total 7 07/25/2023 The thought [...] as of this encounter Progress Notes * Nya Rice CRNP - 11/15/2023 9:10 AM EST MATERNAL MEDICINE CONSULT Lisseth Longoria 11/15/23 REFERRING PROVIDER: SAVAGE Del Real Patient location: HOME. I was in a hospital or clinic location. After connecting through [employer],patient was verified with two unique identifiers. 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 Methods to assure confidentiality were taken. Patient acknowledged consent and understanding of pr ivacy and security of the Telemedicine visit. The patient agreed to participate. Lisseth Longoria is a 38 year old with intrauterine at 29w1d (Estimated Date of Delivery: 01/30/24 by 9w5d ultrasound) who presents today for an MFM consult due to Gestational diabetes,advanced maternal age, depression manage with Lexapro. HPI/CURRENT : pre- BMI=class 1 obesity (77.1 kg (170 lb); 5'); FOB #1; complicated by above. Genetic testing: Low Risk Cell Free DNA OB Problems (from 07/01/23 to present) Problem Noted Resolved Diet controlled gestational diabetes mellitus (GDM) in third trimester Overview Addendum 11/15/2023 9:09 AM by Nya Rice CRNP Diagnosed at 28 weeks Nutrition consult 12/11/23 [...] blood sugars each week for MFM review Depression complicating , antepartum Overview Addendum 11/15/2023 9:04 AM by Nya Rice CRNP Depression managed with Lexapro Reports a stable mood in . Denies any suicidal or homicidal ideation. Reports she has a good support system at home. AMA (advanced maternal age) multigravida 35+ Overview Signed 11/15/2023 9:05 AM by Nya Rice CRNP Age 38 at [facility] Low risk Qnatal I have reviewed this patient's previous OB ultrasound reports, pertinent labwork and testing provided by her referring OB provider. Current Outpatient Medications Medication Sig Dispense Refill Escitalopram Oxalate 10 MG Oral Tablet (Lexapro) Take 1 Tablet by mouth in the morning. 90 Tablet 1 Ferrous Sulfate 325 (65 Fe) MG Oral Tablet (Feosol) Take 1 Tablet by mouth in the morning and 1 Tablet before bedtime. 60 Tablet 4 Yo DelRanovus Lancets 30G Use to test blood sugars 4 times daily (fasting, 1 hour after breakfast, lunch, and dinner) 200 Each 6 Yo Verio Flex System w/Device Kit Use to test blood sugars 4 times daily (fasting, 1 hour after breakfast, lunch, and dinner) 1 Kit 0 Allen Toursuch Verio In Vitro Strip (Glucose Blood) Use to test blood sugars 4 times daily (fasting, 1 hour after breakfast, lunch, and dinner) 125 Strip 6 28-0.8 MG Oral Tablet Take by mouth. Probiotic & Acidophilus Ex St Oral Capsule Take 1 Capsule by mouth in the morning and 1 Capsuleat noon and 1 Capsule in the evening. Take with meals. No current facility-administered medications for this visit. Review of patient's allergies indicates: Allergen Reactions No Known Drug Allergy OB History Para Term AB Living 3 0 0 0 2 0 SAB IAB Ectopic Multiple Live Births 0 1 1 0 0 # Outcome Date GA Lbr Bryce/2nd Weight Sex Delivery Anes PTL Lv 3 Current 2 Ectopic 06/08/21 U ECTOPIC PREG Gen 1 IAB 03/2020 Obstetric Comments 2022 #1 Zhang, age 34, healthy, no other children Past Medical History: Diagnosis Date Adjustment disorder with depressed mood 08/08/2010 ASCUS with positive high risk HPV cervical 08/02/2023 Cocaine use 08/17/2019 Diet controlled gestational diabetes mellitus (GDM) in third trimester 11/13/2023 Dysplasia of cervix, low grade (KATIE 1) 11/11/2023 Repeat pap 10/2024 Head injury, unspecified 11/06/1998 ski pool stuck in head Hemoperitoneum due to rupture of left tubal ectopic 06/08/2021 Other acne Acne Premenstrual tension Varicella without complication Past Surgical History: Procedure Laterality Date LAPAROSCOPY DIAGNOSTIC N/A 06/08/2021 LAPAROSCOPY DIAGNOSTIC AND LEFT SALPINGECTOMY FOR ECTOPIC performed by Sarai Haynes MD at OR [facility] Family History Problem Relation Age of Onset Stroke Mother At age 55 ? from HRT, Pt's thrombophilia panel has been normal Asthma Sister recolved Breast Cancer Grandmother (Maternal) Bipolar Disorder Grandfather (Paternal) No Past Hx Other Pt. denies any family history of skin disease or skin ca Social History Tobacco Use Smoking status: Never Smokeless tobacco: Never Vaping Use Vaping Use: Never used Substance Use Topics Alcohol use: Not Currently Drug use: Not Currently Types: Marijuana, Cocaine Comment: previous cocaine use none since October 2019. REVIEW OF SYSTEMS: headaches: no nausea/vomiting: denies reports movement: yes abdominal pain/tenderness/cramping/contractions: no vaginal bleeding: no vaginal leaking of fluid: no all other systems negative PHYSICAL EXAM: LMP 05/04/2023 (Approximate) General: Well appearing Psych: Alert to time, place, and person and Pleasant DISCUSSION/RECOMMENDATIONS: Problem List Items Addressed This Visit OB AMA (advanced maternal age) multigravida 35+ CONSIDERATIONS: We reviewed the most pertinent aspects [...] MFM anatomy ultrasound at 19-20 weeks gestation. Depression complicating , antepartum CONSIDERATIONS: Untreated maternal anxiety and depression may be associated with an increased risk of multiple poorobstetrical outcomes including miscarriages, low weight, and delivery. Women with a history of anxiety or depression are at risk for recurrence both during and/or the period. Studies of first-trimester SSRI exposure do not demonstrate consistent data to support an increasedrisk for structural malformations. Anti-anxiety or depression medications have been associated with transient effects (withdrawal syndrome). RECOMMENDATIONS: Mental illness can and should be treated during when the benefits of treatment outweigh potential risks. Referral to behavioral health services as clinically indicated. Diet controlled gestational diabetes mellitus (GDM) in third trimester - Primary CONSIDERATIONS: Reviewed etiology and risks associated with gestational diabetes mellitus (GDM), including risks topregnancy, fetus, and maternal progression to Type 2 [...] Recommend nutrition consult with RDN (Registered Dietitian Supervisor Irrigation). Lifestyle changes are also indicated including optimizing gestational weight gain and physical activity of 30 minutes per day, if not otherwise contraindicated in . Insulin is preferred if medications are indicated to optimize euglycemia. Metformin (preferred overglyburide) may also be used in some circumstances. [...] with 75-gram glucose load 6-8 weeks . Other Visit Diagnoses Supervision of high risk , antepartum, third trimester 29 weeks gestation of Follow up ultrasound with Maternal Medicine is scheduled on 11/26/[address] Mendez for anatomy scan secondary to Gestational diabetes, advanced maternal age, depression manage with Lexapro. Patient is aware of upcoming MFM appointment. SAVAGE Lambert 11/15/2023 9:39 AM documented in this encounter Miscellaneous Notes * Assessment & Plan Note - Nya Rice CRNP - 11/15/2023 9:09 AM EST Associated Problem(s): Diet controlled gestational diabetes mellitus (GDM) in third trimester CONSIDERATIONS: Reviewed etiology and risks associated with gestational diabetes mellitus (GDM), including risks topregnancy, fetus, and maternal progression to Type 2 [...] Recommend nutrition consult with RDN (Registered Dietitian Supervisor Irrigation). Lifestyle changes are also indicated including optimizing gestational weight gain and physical activity of 30 minutes per day, if not otherwise contraindicated in . Insulin is preferred if medications are indicated to optimize euglycemia. Metformin (preferred overglyburide) may also be used in some circumstances. [...] with 75-gram glucose load 6-8 weeks . * Assessment & Plan Note - Nya Rice CRNP - 11/15/2023 9:07 AM EST Associated Problem(s): AMA (advanced maternal age) multigravida 35+ CONSIDERATIONS: We reviewed the most pertinent aspects [...] MFM anatomy ultrasound at 19-20 weeks gestation. * Assessment & Plan Note - Nya Rice CRNP - 11/15/2023 9:03 AM EST Associated Problem(s): Depression complicating , antepartum CONSIDERATIONS: Untreated maternal anxiety and depression may be associated with an increased risk of multiple poorobstetrical outcomes including miscarriages, low weight, and delivery. Women with a history of anxiety or depression are at risk for recurrence both during and/or the period. Studies of first-trimester SSRI exposure do not demonstrate consistent data to support an increasedrisk for structural malformations. Anti-anxiety or depression medications have been associated with transient effects (withdrawal syndrome). RECOMMENDATIONS: Mental illness can and should be treated during when the benefits of treatment outweigh potential risks. Referral to behavioral health services as clinically indicated. * Pt Handout (on AVS) - Nya Rice CRNP - 11/15/2023 9:01 AM EST Images from the original note were not included. 94240 Understanding Carbohydrates A car needs the right [...] of rice 4 to 6 crackers 1/2 Liberian muffin 1/2 cup of black beans 1/4 of a large baked potato (3 ounces) 2/3 cup of plain fat-free yogurt 1 cup of soup 1/2 cup of casserole 6 chicken nuggets [id number] brownie or cake without frosting 2 small [...] carbs you should have. Last Reviewed Date: 09/20/202119999632-3555 [employer]. All rights reserved. This information is not intended as a substitute for professional medical care. Always follow your healthcare professional's instructions. * Pt Handout (on AVS) - Nya Rice CRNP - 11/15/2023 9:01 AM EST [id number] Understanding Blood Sugar During Gestational diabetes causes high blood sugar levels during . You are at risk of developing, or perhaps have already developed, gestational diabetes. Controlling your blood sugar can help prevent problems for you and your baby. Your body turns food into blood sugar As food is digested, it turns into sugar (glucose), a fuel that feeds your body. This sugar goes into your bloodstream. Your body then releases a substance called insulin to help your body use blood sugar correctly. Blood sugar goes to your baby The placenta is where nutrients in your blood are exchanged with your baby's blood. Your blood sugar goes to your baby from the placenta through the umbilical cord. Your baby uses this sugar to grow. Too much blood sugar affects you and your baby During , the placenta makes hormones that can disrupt the way your body uses insulin. If your body can't use insulin correctly, your blood sugar level gets too high. Then too much blood sugar goes to your baby. This can cause problems for both you and your baby. Controlling your blood sugar helps prevent problems You can lower your blood sugar by eating right, exercising, and taking medicines that your healthcare provider prescribes to control your blood sugar. If you keep your blood sugar in control, the risks to you and your baby are the same as those for a normal . Last Reviewed Date: 04/20/202119999237-3155 [employer]. All rights reserved. This information is not intended as a substitute for professional medical care. Always follow your healthcare professional's instructions. * Pt Handout (on AVS) - Nya Rice CRNP - 11/15/2023 9:01 AM EST Images from the original note were not included. 75404 Gestational Diabetes: Exercise Exercise can help you keep your blood sugar in a normal range. That?s because your body uses more blood sugar when you exercise. Diabetes in can often be managed with careful nutrition and exercise alone. Then you may not need medicine to control your blood sugar. Exercise regularly Your healthcare provider may want you to exercise each day. The best time depends on when your blood sugar is highest. Exercising may also help ease some common symptoms of . These include bloating, constipation, and backaches. Ask about exercise at your first care visit. Your provider will work with you to make an exercise plan that fits your needs. Here are some tips: Aim to exercise for 30 to 60 minutes a day. Do this at moderate intensity. This means you're moving enough to raise your heart rate and start sweating. But you can still talk normally. Try breaking up daily exercise into 2 or 3 sessions. For example, take a 15- minute walk after each meal. Exercise with a friend or your partner. This may help you stick to your exercise plan. Go at a comfortable pace. Don?t tire yourself out. Exercise safely Ask your provider about exercise safety for you and your baby. Walking, swimming, and low-impact orwater aerobics are often the safest things to do. Other safety tips include: Don't do activities where you jump, turn, twist, stop or start quickly. Don't lift heavy weights. Don't exercise on your back after the first trimester. This can put too much pressure on an important vein. It can limit blood flow to the baby. If you do yoga or Pilates, find a class designed for . Use a sports bra to support your breasts. You may also want to use a belly support belt later inpregnancy. Don't get overheated. Don't do hot yoga or hot Pilates. Don't raise your heart rate to a level that makes it hard to talk. Drink plenty of water. If you use insulin, carry a carbohydrate snack with you. If you walk or do low-impact aerobics, wear sturdy shoes. If you haven?t eaten in 2 or more hours, have a light snack before exercising. Don't do contact sports that put you at risk of being hit in the belly. These include boxing, ice hockey, soccer, and basketball. Don't go skydiving or scuba diving. Don't do things that may cause a serious fall. These include horseback riding, gymnastics, and off-road cycling. Use a stationary bike. It's a safer choice than a standard bike. It will stop you from getting off balance with your growing belly. When it's not safe to exercise It's not advised to exercise when if you have any of these health conditions: Some types of heart and lung diseases with twins or more, and at risk for labor labor of your water has broken (ruptured membranes) Placenta previa later than 26 weeks of Preeclampsia or high blood pressure due to Severe anemia Cervical insufficiency or cerclage When to call your healthcare provider Call your provider right away or go to the emergency room (ER) if you have any of these: Belly pain Shortness of breath before starting exercise Vaginal bleeding Dizziness or feeling faint Chest pain Headache Decreased movement contractions Muscle weakness Calf pain or swelling Fluid leaking from the vagina Last Reviewed Date: 11/21/202119998037-0797 [employer]. All rights reserved. This information is not intended as a substitute for professional medical care. Always follow your healthcare professional's instructions. * Pt Handout (on AVS) - Nya Rice CRNP - 11/15/2023 9:01 AM EST Images from the original note were not included. 95268 Healthy Meals for Diabetes Ask your healthcare [...] of rice 4 to 6 crackers 1/2 Liberian muffin 1/2 cup of black beans 1/4 of a large baked potato (3 ounces) 2/3 cup of plain fat-free yogurt 1 cup of soup 1/2 cup of casserole 6 chicken nuggets [id number] brownie or cake without frosting 2 small [...] yourself by bringing a healthy dish to [employer]. Choose healthy snacks When it comes to [...] sugar could get toohigh. Last Reviewed Date: 09/20/202119993085-8636 [employer]. All rights reserved. This information is not intended as a substitute for professional medical care. Always follow your healthcare professional's instructions. * Pt Handout (on AVS) - Nya Rice CRNP - 11/15/2023 9:01 AM EST Images from the original note were not included. 13451 If You Need Extra Insulin During During , your body may not be able to make enough insulin to control your blood sugar. If this happens, you may need extra insulin. This will help control your blood sugar. In some cases, anoral antidiabetic medicine may be used. An example of this is glyburide. But insulin is used most often. Insulin is a natural substance. It is not addictive. It does not harm your baby. It does not cross the placenta. That means it does not affect your baby the way taking a pill would. If you did not have diabetes before , you will likely stop taking insulin after your baby is born. Learning to use insulin Your healthcare provider will prescribe your insulin. They will teach you how to give yourself a shot. With practice, you?ll get comfortable doing it. You will need to inject it 1 or more times a day. Insulin is injected into fatty tissue. The best site for a shot of insulin is in your belly area. But you can also do the shot in your upper arm or thigh. Talk with your healthcare provider about where to give the shot. Here are some steps to follow: Choose an injection site. Clean it with alcohol if the skin is dirty. Pinch a fold of skin. Insert the needle at a steep angle. The best angle will depend on your body type, the length of the needle, and where you put the shot. Your healthcare provider will help youfind the best angle. Keeping the skin pinched, push the plunger down. This injects the insulin. Release the pinched skin. Remove the needle from your skin. If you see blood or insulin leaking from your skin, press firmly on the site for 5 to 8 seconds. Don?t rub your skin in the area. [place] and syringes should be used only 1 time. After using, throw them away in a puncture-proof container. This is known as a sharps container. Don?t throw needles in your household trash. Talk to your healthcare provider if you have any questions or concerns about taking insulin. The best site for injecting insulin is your abdomen. But you can also inject into an upper arm or thigh. Talk with your health care provider about where to give yourself a shot. Finding the right dose for you Your healthcare provider will work with you to find the right dose of insulin for you. It may take time. This is because you need to balance your insulin with your food and exercise. And your body needs more insulin as your baby grows. You must check your blood sugar several times a day. This is to be sure your insulin is working. Ifyour blood sugar is too high or too low, your healthcare provider will adjust your dose. Low blood sugar Taking insulin puts you at risk of low blood sugar. Symptoms of low blood sugar include: Shakiness Dizziness Weakness Confusion If you feel any of these symptoms, check your blood sugar right away. Always treat low blood sugar quickly. To do this, eat 15 grams of fast-acting sugar, such as: 3 glucose tablets 5 to 6 pieces of hard candy 1 to 2 tablespoons of honey or sugar cup fruit juice or regular, nondiet soda 1 cup fat-free milk Then check your blood sugar again in 15 minutes. If your blood sugar is still low, eat another 15 grams of sugar. If your blood sugar does not return to the target range in 30 minutes, call your healthcare provider. Last Reviewed Date: 09/20/202219999692-4110 [employer]. All rights reserved. This information is not intended as a substitute for professional medical care. Always follow your healthcare professional's instructions. * Pt Handout (on AVS) - Nya Rice CRNP - 11/15/2023 9:01 AM EST Images from the original note were not included. Managing Gestational Diabetes - Video Being diagnosed with gestational diabetes can be stressful. But with proper care and management, you can stay healthy and deliver a healthy baby. In many cases, gestational diabetes goes away on its own after the mother gives . To view the video go to this web address: [email or web address] Or, scan this QR code with your smart phone 2019 [employer]dek. * Pt Handout (on AVS) - Nya Rice CRNP - 11/15/2023 9:01 AM EST Images from the original note were not included. 41884 What Is Gestational Diabetes? Diabetes is when [...] person who can help. Last Reviewed Date: 05/21/202319994249-2603 [employer]. All rights reserved. This information is not intended as a substitute for professional medical care. Always follow your healthcare professional's instructions. * Pt Handout (on AVS) - Nya Rice CRNP - 11/15/2023 9:01 AM EST Images from the original note were not included. 44440 Diabetes: Shopping for and Making Meals Having diabetes doesn?t mean you have to shop in a special aisle or look for special foods. But you'll need to make healthy food choices. Comparing items and reading food labels is king. This can helpyou find the healthiest foods for you and your family. Comparing items When you shop, compare items to find the best ones for your needs. Keep these facts in mind: No sugar added doesn't mean a product is sugar-free. Sugar-free means less than 1/2 gram (g) of sugar per serving. Fat-free means less than 1/2 g of fat per serving. This does not necessarily mean the product islow in calories. Low fat means 3 g fat or less per serving. Reduced fat or less fat means 25% less fat than the regular version. Some of this fat may be saturated or trans fat. And the calories per serving may be similar to the regular version. Making small changes Don?t try to change all of your eating habits at once. Here are some ideas to start with: Try fat-free or low-fat cheese, milk, and yogurt. Also try leaner cuts of meat. This will help you cut down on saturated fat. Try whole-grain breads, brown rice, and whole-wheat pasta. Load up on fresh or frozen vegetables. If you buy canned, choose low-sodium vegetables. Stay away from processed foods as much as possible. They tend to be low in fiber and high in trans fats and salt. Limit how much salt you have to 2,300 mg per day. Try tofu, soymilk, or meat substitutes.?They can help you cut cholesterol and saturated fat out of your diet. Learning to read food labels To find healthy foods that help you control blood sugar, learn how to read food labels. Look for the Nutrition Facts label on packaged foods. It will tell you how many servings there are in the package. It will also tell you the amount of carbohydrate, sugar, fat, and fiber in each serving. Then you can decide if the food fits into your meal plan. Using the food label So, once you have the food label, what do you do with it? The food label helps in many ways. Use itto: Compare items. Decide which is the best for your health needs. Track the number of carbohydrates in your portions. Figure out how many servings of a food you can have and still stay within the number of carbohydrates for that meal. Planning meals For good blood sugar control, plan what and when you?ll eat. Start by making a meal plan that includes all the food groups. Then time your meals and exercise to help keep your blood sugar level steady. You may need to adjust your plan for special situations. But 3 of the best ways to manage your blood sugar are to: Eat meals and snacks at the same time every day Eat about the same amount of food Exercise each day Eat from all the food groups A healthy meal plan starts with eating many different types of foods. Look for lean meats, fresh fruits and vegetables, whole grains, and low-fat or nonfat dairy products. Eating a wide variety of healthy foods offers the nutrients your body needs. It can also keep you from getting bored with your meal plan. Reduce liquid sugars Extra calories from sodas, sports drinks, and fruit drinks make it hard to keep blood sugar in range. Cut as many liquid sugars from your meal plan as you can. This includes most fruit juices. These are often high in natural or added sugar. Instead, take plenty of water and other sugar-free drinks. Eat less fat If you need to lose some weight, try to reduce the amount of fat in your diet. This can also help lower your cholesterol level. This can keep blood vessels healthier. Cut fat by using only small amounts of liquid oil for cooking. Read food labels carefully. This can help you stay away from foods with unhealthy trans fats. Timing your meals When it comes to blood sugar control, when you eat is as important as what you eat. You may need toeat several small meals spaced evenly during the day. This can help you stay in your target range. So don?t skip breakfast or wait until late in the day to get most of your calories. Doing so can make your blood sugar rise too high or fall too low. Cooking wisely Broil, steam, bake, or grill meats and vegetables. Don't lee them. Flavor foods with vegetable pure, lemon or [place] juice, or herb seasonings. Don't use cream-based sauces or sugary glazes. Remove skin from chicken and turkey before serving. Look in cookbooks for easy low-fat, low-sugar recipes. When making your normal recipes, cut sugar by 1/2. Cut fat by 1/3. Last Reviewed Date: 09/20/202119992741-8030 [employer]. All rights reserved. This information is not intended as a substitute for professional medical care. Always follow your healthcare professional's instructions. * Pt Handout (on AVS) - Nya Rice CRNP - 11/15/2023 9:01 AM EST Images from the original note were not included. [address] Gestational Diabetes: After Your blood sugar will most likely return to normal after delivery. But gestational diabetes is a warning sign that you are at risk of getting diabetes later in life. You?re also more likely to have gestational diabetes with your next . But you can take steps to reduce these risks. Taking care of yourself Even if your blood sugar goes back to normal, you still need to take care of yourself. This will help prevent diabetes later in life. You'll need to: Keep your weight down. Eating food that is low in fat and sugar can help you control your weight. If you?re overweight, your risk of getting diabetes in 10 to 15 years more than doubles. Keeping your weight down also reduces your risk of gestational diabetes in your next . Get regular exercise. Exercise helps lower your blood sugar. It can also help you control your weight. Try to work up to at least 150 to 300 minutes of moderate exercise every week. This is at least 30 minutes each day. Have your blood sugar checked. Make an appointment to have your blood sugar checked 6 to 8 weeksafter delivery. If your blood sugar is still high, you may have type 2 diabetes. Your healthcare provider will tell you more about how to manage diabetes long-term. Have regular diabetes screenings. Have blood tests every year, or as often as your healthcare provider advises. Breastmilk is the best food for your baby. Giving only breastmilk is advised for at least your baby's first 6 months. may also help lower your blood sugar. Your healthcare provider can show you how to breastfeed. Be sure to eat healthy foods and drink extra water while you?re . You may find exercise easier right after . This is when your breasts may feel vice president regulatory. Planning a future Your blood sugar needs to be back to normal before you get again. Have your blood sugar checked before you plan your next . And remember that it?s possible to get again soon after you give . Talk with your healthcare provider about the best method of control for you and your partner. Last Reviewed Date: 11/21/202119992414-0506 [employer]. All rights reserved. This information is not intended as a substitute for professional medical care. Always follow your healthcare professional's instructions. * Pt Handout (on AVS) - Nya Rice CRNP - 11/15/2023 9:01 AM EST Images from the original note were not included. Diabetes and Healthy Eating - Video If you have diabetes, you know it's important to keep your blood glucose level within a safe range.One of the best ways to do this is by eating a healthy diet. Let's take a few minutes to learn about some good eating habits that can make a difference for you. To view the video go to this web address: [email or web address] Or, scan this QR code with your smart phone [employer]. documented in this encounter Plan of Treatment Upcoming Encounters Date Type Department Care Team (Late st Contact Info) Description 11/21/2023 10:45 AM EST Office Visit [facility]necology[facility] [address] [facility] [place] [address] BackerNaima CRNP [address] [place] [address] 11/26/2023 10:30 AM EST Office Visit Commercial Construction Project Manager OB Maternal Medicine [facility] Alvin Chowdary [address] [place] [address] Dr Asenc[address] [place] [address] Kemar Mendez MD [address] [place] [address] 11/26/2023 10:30 AM EST Imaging Maternal Medicine [facility] Alvin Chowdary [address] [place] [address] Dr Asencio [address] [place] [address] 12/11/2023 8:00 AM EST Telemedicine Virtual, Nutrition Services [address] [place] [address] Cheli Thorne, LIBRADO [address] [place] [address] [place] [address] 02/25/2024 12:40 PM EDT Office Visit [facility] [address] [place] [phone] Milana Marques PA-C [address] [place] [address] Scheduled Referrals Name Type Priority Associated Diagnoses Orde r Schedule REMOTE PATIENT MONITORING REFERRAL Referral Within 3 days (urgent) Diet controlled gestational diabetes mellitus (GDM) in third trimester Ordered: 11/15/2023 Health Maintenance Due Date Last Done Comments [...] diabetes mellitus (GDM) in third trimester- Primary Depression complicating , antepartum Mental disorders of mother, antepartum Multigravida of advanced maternal age in third trimester Supervision of high risk , antepartum, third trimester 29 weeks gestation of state, incidental documented in this encounter Advance Directives Latest Code Status on File Code Status Date Activated Date Inactivated Comments Full Code 06/08/2021 11:52 PM 06/09/2021 5:44 AM This order reflects the patients wishes and were consensually agreed upon. Question Answer Comments Discussion of Advance Directives occurred with: Not Discussed
--- OUTSIDE RECORDS SUMMARY | 2024-01-22 10:37 | External Medical Summary ---
Author Name Unknown Address Unknown Organization K01:LABORATORY [facility] [place] [facility] [place] [facility] [place] [address] [place] [address] Laboratory Report Ordering Provider Test Date Status RACHEL GRADYER 11/12/2023 07:35:29 Final Observation Date Value Abnormality Reference (Units ) Status Creatinine 11/12/2023 07:35:29 0.5 0.5-1.0 (mg/dL) Final Glomerular filtration rate/1.73 sq M.predicted [Volume Rate/Area] in Serum, Plasma or Blood by Creatinine-based formula (CKD-EPI) 11/12/2023 07:35:29 >90 >=60 (mL/min) Final eGFR is calculated based on the CKD-EPI 2020 equation Performing Location LABORATORY [facility] [place] - [address] [place] [address]
--- OUTSIDE RECORDS SUMMARY | 2024-01-22 10:38 | External Medical Summary ---
Author Name Unknown Address Unknown Organization K01:LABORATORY [facility] - [address] [place] [address] Laboratory Report Ordering Provider Test Date Status RANDY GRADY 11/12/2023 07:35:29 Final Observation Date Value Abnormality Reference (Units ) Status TSH 11/12/2023 07:35:29 1.05 0.27-4.20 (uIU/mL) Final Performing Location LAB[facility]ATORY [facility] - [address] [place] [address]
--- OUTSIDE RECORDS SUMMARY | 2024-01-22 10:38 | External Medical Summary | Summary of Care ---
Author Name Unknown Organization [facility] Address [address] [facility] [address] Phone [phone] Care Team Providers Care Neonatal Specialist Name Role Phone Unavailable Primary Care Provider Unavailabl e Reason for Visit * Reason Onset Date Comments Test Results 09/17/2023 Unexpected or In determinate Result Encounter Details Date Type Department Care Team (Late st Contact Info) Description 09/17/2023 Telephone Radiology [facility] [address] [place] [address] Lamont Pérez MD [address] [place] [id number] Test Results (Unexpected or Indeterminate ... 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 Never true 06/17/2023 [place] Depression Scale Answer Date Recorded [place] Depression Scale Total 7 07/25/2023 The thought [...] file Not on file Not on file Travel History Travel Start Travel End [facility] 08/28/2023 09/06/2023 documented as of this encounter Miscellaneous Notes * Telephone Encounter - Lauren Zamora OSA - 09/17/2023 8:50 PM EST Hello- The radiologist discovered an unexpected or indeterminate finding on Lisseth S Moist ([id number]) and asks that you review the following report. IMPRESSION IMPRESSION 1. Single live fetus 19 weeks 6 days with appropriate growth since the initial study. 2. Relationship of the outflow tracts and three-vessel cord not well documented. Follow-up in this regard in 2 weeks recommended. Anatomic survey otherwise unremarkable. Study Type:US PREG SINGLE/1ST GEST, 14 WEEKS OR LATER Date of Study : 09/17/2023 Please respond to this encounter to acknowledge receipt of this message and take responsibility to ensure this report is reviewed. Thank you, BENEDICTO Khan Client Service Rep [facility] Medicine [place] documented in this encounter Plan of Treatment Upcoming Encounters Date Type Department Care Team (Late st Contact Info) Description 10/30/2023 9:00 AM EST Office Visit Gynecology/Obst[facility] [address] [place] [address] Naima Xavier CRNP [address] [place] [address] 02/25/2024 12:40 PM EDT Office Visit [facility] [address] [place] [phone] Milana Marques PA-C [address] [place] [id number] Health Maintenance Due Date Last Done Comments Depression Screening 08/05/2021 08/05/2020 COVID-19 Vaccine ( season) 2023 01/19/2021 Diabetes Screening 06/12/2026 06/12/2023, 0 06/08/2021, 06/01/2021, Additional history exists Pap Smear 07/25/2026 07/25/2023, 07/21, 04/03/2018, Additional history exists Cervical Cancer Screening 07/25/2028 HPV/Co-Test 07/25/2028 07/25/2023 DTaP,Tdap,and Td Vaccines (8 - Td or Tdap) 08/05/2030 08/05/2020, 01/07/2009, 11/07/1998, Additional history exists Hepatitis B Completed 08/08/1998, [...] Code 06/08/2021 11:52 PM 06/09/2021 5:44 AM Thi s order reflects the patients wishes and were consensually agreed upon. Question Answer Comments Discussion of Advance Directives occurred with: Not Discussed
--- OUTSIDE RECORDS SUMMARY | 2024-01-22 10:38 | External Medical Summary | Summary of Care ---
Author Name Unknown Organization [facility] Address [address] [facility] [place] [address] Phone [phone] Care Team Providers Care Gum Cook Name Role Phone Unavailable Primary Care Provider Unavailabl e Reason for Visit * Reason Onset Date Comments Test Results 09/17/2023 Unexpected or In determinate Result Encounter Details Date Type Department Care Team (Late st Contact Info) Description 09/17/2023 Telephone Radiology [facility] [address] [place] [address] Lamont Pérez MD [address] [place] [address] Test Results (Unexpected or Indeterminate ... Allergies Active Allergy Reactions Criticality Noted Date Comments No Known Drug Allergy 08/08/2010 documented as of this encounter (statuses as of 09/18/2023) Medications Medication Sig Dispensed Refills Start Date [...] as of this encounter (statuses as of 09/18/2023) Active Problems Problem Noted Date Diagnosed Date [...] as of this encounter (statuses as of 09/18/2023) Resolved Problems Problem Noted Date Diagnosed Date [...] as of this encounter (statuses as of 09/18/2023) Immunizations Name Administration Dates Next Due Covid-19 Ad26, Single Dose (Varsha/J&J) 01/19/2021 DTaP Dipth/Tet/Acell Pertussis (Infanrix), Peds 04/26/1993,05/31/1989,04/27/1988,1987,1987 HIB PRP-T, 4 dose (ActHib) 05/31/1989 Hepatitis B, 0-19 yrs 08/08/1998,03/07/1998,04/0 03/1998 MMR - Measles/Mumps/Rubella Vaccine 04/26/1993,0 02/15/1989 OPV - Polio Virus Vaccine (Oral) 993,05/31/1989,04/27/1988,1987,1987 PPD 10/26/1988 SEASONAL INFLUENZA, PF, 6 M & Above, IM , (FLULAVAL or FLUZONE) 08/13/2023,08/07/2021,08/05/2020 Seasonal Influenza, Split, I IV3, With Preserve, Inj 10/18/2006 TD - Tetanus/Diptheria (ADULT) 11/07/1998 TD, Preservative Free 08/05/2020 TDAP (age 11 [...] money to get more. Never true 06/17/2023 [place] Depression Scale Answer Date Recorded [place] Depression Scale Total 7 07/25/2023 The thought [...] file Travel History Travel Start Travel End [facility] 08/28/2023 09/06/2023 documented as of this encounter Miscellaneous Notes * Telephone Encounter - Cheli Cheung RN - 09/18/2023 7:33 AM EST Will have Mame review. * Telephone Encounter - Lauren Zamora OSA - 09/17/2023 8:50 PM EST Hello- The radiologist discovered an unexpected or indeterminate finding on Lisseth S Moist ([id number]) and asks that you review the following [...] reviewed. Thank you, BENEDICTO Khan Client Service [facility] documented in this encounter Plan of Treatment Upcoming Encounters Date Type Department Care Team (Late st Contact Info) Description 10/30/2023 9:00 AM EST [facility] [address] [place] [address] BackerNaima CRNP [address] [place] [address] 02/25/2024 12:40 PM EDT Office Visit [facility] [address] [place] [phone] Milana Marques PA-C [address] [place] [address] Health Maintenance Due Date Last Done Comments [...]
--- OUTSIDE RECORDS SUMMARY | 2024-01-22 10:38 | External Medical Summary ---
Author Name Unknown Address Unknown Organization K01:LABORATORY [facility] - [address] [place] [address] Laboratory Report Ordering Provider Test Date Status YSABEL,RANDY 11/12/2023 07:35:29 Final Observation Date Value Abnormality Reference (Units ) Status Ferritin 11/12/2023 07:35:29 50 13-150 (ng /mL) Final Performing Location LABORATORY [facility] - [address] [place] [address]
--- OUTSIDE RECORDS SUMMARY | 2024-01-22 10:38 | External Medical Summary | Summary of Care ---
Author Name Unknown Organization [facility] Address [address] [facility] [address] Phone [phone] Care Team Providers Care Verifying Machine Operator Name Role Phone Unavailable Primary Care Provider Unavailabl e Reason for Visit * Reason Onset Date Comments Scheduling 10/30/2023 Encounter Details Date Type Department Care Team (Late st Contact Info) Description 10/30/2023 Telephone Gynecology/Obstetrics [facility] [address] [place] [address] [place] Rivas MD [address] [place] [address] Scheduling Allergies Active Allergy Reactions Criticality Noted Date Comments No Known Drug Allergy 08/08/2010 documented as of this encounter (statuses as of 10/30/2023) Medications Medication Sig Dispensed Refills Start Date [...] as of this encounter (statuses as of 10/30/2023) Active Problems Problem Noted Date Diagnosed Date [...] as of this encounter (statuses as of 10/30/2023) Resolved Problems Problem Noted Date Diagnosed Date [...] as of this encounter (statuses as of 10/30/2023) Immunizations Name Administration Dates Next Due Covid-19 Ad26, Single Dose (Varsha/[employer]&J) 021 Seasonal Influenza, PF, 6 M & [...] money to get more. Never true 06/17/2023 [place] Depression Scale Answer Date Recorded [place] Depression Scale Total 7 07/25/2023 The thought [...] Telephone Encounter - Skye Ghotra OSA - 10/30/2023 9:44 AM EST Pt rescheduled for 11/08/23 * Telephone Encounter - Cheli Cheung RN - 10/30/2023 8:04 AM EST Pt tested positive for covid today. Having sore throat and headache. Advised that we would reschedule pt for next week since she just tested positive. She is feeling okay. Denies any ob concerns. Will have Skye review schedules to see if she can be reached for both, next week, if not, please schedule doc and then colpo for the following visit? documented in this encounter Plan of Treatment Upcoming Encounters Date Type Department Care Team (Late st Contact Info) Description 11/08/2023 3:00 PM EST Office Visit Gynecology/Obstetrics [facility] [address] [place] [address] Naima Xavier CRNP [address] [place] [address] 02/25/2024 12:40 PM EDT Office Visit [facility] [address] [place] [phone] Milana Marques PA-C [address] [place] [address] Health Maintenance Due Date Last Done Comments [...]
--- OUTSIDE RECORDS SUMMARY | 2024-01-22 10:38 | External Medical Summary | Summary of Care ---
Author Name Unknown Organization [facility] Address [address] [facility] [address] Phone [phone] Care Team Providers Care Reports Developer Name Role Phone Unavailable Primary Care Provider Unavailabl e Reason for Visit * Reason Onset Date Comments Test Results 09/17/2023 Unexpected or In determinate Result Encounter Details Date Type Department Care Team (Late st Contact Info) Description 09/17/2023 Telephone Radiology [facility] [address] [place] [address] Lamont Pérez MD [address] [place] [address] Test Results (Unexpected or Indeterminate ... Allergies Active Allergy Reactions Criticality Noted Date Comments No Known Drug Allergy 08/08/2010 documented as of this encounter (statuses as of 10/02/2023) Medications Medication Sig Dispensed Refills Start Date [...] as of this encounter (statuses as of 10/02/2023) Active Problems Problem Noted Date Diagnosed Date [...] as of this encounter (statuses as of 10/02/2023) Resolved Problems Problem Noted Date Diagnosed Date [...] as of this encounter (statuses as of 10/02/2023) Immunizations Name Administration Dates Next Due Covid-19 [...] to get more. Never true 06/17/2023 [place] Depression Scale Answer Date Recorded [place] Depression Scale Total 7 07/25/2023 The thought [...] file Travel History Travel Start Travel End [facility] 08/28/2023 09/06/2023 documented as of this encounter Miscellaneous Notes * Telephone Encounter - Katie Hong PA-C - 10/02/2023 4:18 PM EST Addressed in separate encounter. Pt has missed anatomy scheduled for tomorrow. * Telephone Encounter - Cheli Cheung RN - 09/18/2023 7:33 AM EST Will have Mame review. * Telephone Encounter - Lauren Zamora OSA - 09/17/2023 8:50 PM EST Hello- The radiologist discovered an unexpected or indeterminate finding on Lisseth S Moist ([id number]) and asks that you review the following [...] reviewed. Thank you, BENEDICTO Khan Client Service [facility] Medicine [place] documented in this encounter Plan of Treatment Upcoming Encounters Date Type Department Care Team (Late st Contact Info) Description 10/03/2023 9:00 AM EST Imaging Gynecology/Obstetrics [facility]ne [facility] [address] [place] [address] 10/30/2023 9:00 AM EST Office Visit Gynecology/Obstetrics Erm[facility] Samaniego [address] [place] [address] Naima Xavier CRNP [address] [place] [address] 02/25/2024 12:40 PM EDT Office Visit Family [facility], [place] [address] [place] [phone] Milana Marques PA-C [address] [place] [address] Health Maintenance Due Date Last Done Comments [...]
--- OUTSIDE RECORDS SUMMARY | 2024-01-22 10:38 | External Medical Summary | Summary of Care ---
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 Name Role Phone Unavailable Primary Care Provider Unavailabl e Reason for Visit * Reason Comments Colposcopy Return Visit Encounter Details Date Type Department Care Team (Late st Contact Info) Description 11/08/2023 3:00 PM EST Office Visit Gynecology/Obstetric s [facility] [address] [place] [address] Naima Xavier CRNP [address] [place] [phone] Normal in third trimester*; Obesity in , antepartum; Depression complicating , antepartum; in third trimester with history of ectopic ; Multigravida of advanced maternal age in third trimester; Glucose intolerance of ; Atypical squamous cells of undetermined significance (ASC-US) on cervical Pap smear; Need for prophylactic vaccination with combined vqpvwcfvtw-tvbsalb-vq rtussis (DTP) vaccine Allergies Active Allergy Reactions Criticality Noted Date Comments No Known Drug Allergy 08/08/2010 documented as of this encounter (statuses as of 11/08/2023) Medications Medication Sig Dispensed Refills Start Date [...] as of this encounter (statuses as of 11/08/2023) Active Problems Problem Noted Date Diagnosed Date COVID-19 affecting , antepartum 024 Overview: + [...] as of this encounter (statuses as of 11/08/2023) Resolved Problems Problem Noted Date Diagnosed Date [...] as of this encounter (statuses as of 11/08/2023) Immunizations Name Administration Dates Next Due Covid-19 [...] money to get more. Never true 06/17/2023 [place] Depression Scale Answer Date Recorded [place] Depression Scale Total 7 07/25/2023 The thought [...] Sign Reading Time Taken Comments Blood Pressure 114/62 11/08/2023 2:48 PM EST Pulse - - Temperature - - Respiratory Rate - - Oxygen Saturation - - Inhaled Oxygen Concentration - - Weight 83.9 kg (185 lb) 11/08/2023 2:48 PM EST Height - - Body Mass Index 36.13 09/17/2023 2:25 PM EST documented in this encounter Patient Instructions * Patient Instructions* Naima Xavier CRNP - 11/08/2023 2:51 PM EST Post colposcopy instructions: You can expect a coffee ground discharge or light bleeding for about 1-2 weeks post procedure. Do not take Aspirin or aspirin-containing products ( it may increase the amount of vaginal bleedingand affect the ability to of the blood to clot). Take Tylenol or Advil for any discomfort Avoid heavy lifting, strenuous exercise, jogging, anything in the vagina ( intercourse, douching, tampons) for 7 days It is very important to keep all follow up appointments Call your health care provider if the following occurs: - Bright red vaginal bleeding- saturating a pad/hr - Foul smelling vaginal discharge - Pain - Fever of 100 degrees or greater documented in this encounter Progress Notes * Naima Xavier CRNP - 11/08/2023 2:51 PM EST 28w1d Not seen since 09/17. Completing colposcopy today. Had Covid a few weeks ago, recovering. Discussedincreased resting HR; encourage adequate hydration, seek medical attention if accompanied by SOB/pain. Baby moving well, discussed FKC. No ctx, bleeding/leaking. Accepts Tdap today. Will schedule labs, 3 hr GTT; discussed these. 2 week follow up SAVAGE Tyson Colposcopy Procedure Lisseth Sheets presents for colposcopy for evaluation of recent pap showing:ASCUS +HPV. Previous pap smears: 2017 NILM +HPV. 2019 NILM neg HPV. BP 114/62 | Wt 83.9 kg (185 lb) | LMP 05/04/2023 (Approximate) | BMI 36.13 kg/m | BSA 1.88 m Reviewed in detail procedure, risks, benefits and indications. A ''time out'' was initiated by SAVAGE Tyson.The patient was identified by name and dateof . The correct procedure, and correct site identified. Correct positioning (as applicable). There is availability of necessary equipment. Pt states she is not allergic to latex. PE: bimanual exam: Not performed. external genitalia: No lesions. vagina: No lesions. cervix: Lesion #1 Location: 1 o'clock: Appearance: [place]; Completely visualized: yes; Biopsied: yes Lesion #2 Location: 6 o'clock: Appearance: [place]; Completely visualized: yes; Biopsied: yes Transformation Zone: Seen in entirety Satisfactory Colposcopy: yes Additional Biopsies: N/A ECC: no Impression Pap ASCUS +HPV F/U results on any testing done. Reviewed instructions including no sex, tampons, or douching for at least 7 days. SAVAGE Tyson * Lashell Miller LPN - 11/08/2023 2:49 PM EST 28w1d Denies vaginal bleeding/rom + movement Episodes of dizziness/ increased resting HR. documented in this encounter Nursing Notes * Lashell Miller LPN - 11/08/2023 3:21 PM EST Patient here for tdap injection. Patient doing well no complaints. Injection given IM as ordered. Patient tolerated well. Patient to follow up as directed. Patient instructed to call if any complications. Patient verbalized understanding of instructions given. Injection site: Right Deltoid Medication Source: Dispensed stock medication documented in this encounter Plan of Treatment Upcoming Encounters Date Type Department Care Team (Late st Contact Info) Description 11/12/2023 7:20 AM EST Laboratory Laboratory, [place] [address] [phone] Lisa Coronado [address] [place] [phone] 11/21/2023 10:45 AM EST Office Visit Gynecology/Obstetrics [facility] [address] [place] [address] Naima Xavier CRNP [address] [place] [phone] 02/25/2024 12:40 PM EDT Office Visit Family [facility], [place] [address] [place] [place] [phone] Milana Marques PA-C [address] [facility] [place] [phone] Pending Results Name Type Priority Associated Diagnoses Date /Time SURGICAL PATHOLOGY Pathology Routine Atypical squamous cells of undetermined significance (ASC-US) on cervical Pap smear 11/08/2023 3:14 PM EST Scheduled Orders Name Type Priority Associated Diagnoses Orde r Schedule GESTATIONAL GLUCOSE TOLERANCE, 3 HOUR Lab Routine Normal in third trimester Expected: 11/08/2023 (Approximate), Expires: 11/08/2024 CBC WITH WBC DIFFERENTIAL AND ANEMIA REFLEX WORKUP Lab Routine Normal in third trimester Expected: 11/08/2023 (Approximate), Expires: 11/08/2024 RPR Lab Routine Normal in third trimester Expected: 11/08/2023 (Approximate), Expires: 11/08/2024 Health Maintenance Due Date Last Done Comments [...] encounter Visit Diagnoses Diagnosis Normal in third trimester- Primary Obesity in , antepartum Obesity complicating , childbirth, or the puerperium, antepartum condition or complication Depression complicating , antepartum Mental disorders of mother, antepartum in third trimester with history of ectopic Multigravida of advanced maternal age in third trimester Glucose intolerance of Abnormal maternal glucose tolerance, complicating , childbirth, or the puerperium, unspecified as to episode of care Atypical squamous cells of undetermined significance (ASC-US) on cervical Pap smear Need for prophylactic vaccination with combined qdyofccaro-hyshrar-exoixlkgu (DTP) vaccine documented in this encounter Advance Directives Latest Code Status on File Code Status Date Activated Date Inactivated Comments Full Code 06/08/2021 11:52 PM 06/09/2021 5:44 AM This order reflects the patients wishes and were consensually agreed upon. Question Answer Comments Discussion of Advance Directives occurred with: Not Discussed"
--- OUTSIDE RECORDS SUMMARY | 2024-01-22 10:38 | External Medical Summary | Summary of Care ---
Author Name Unknown Organization [facility] Address [address] [address] Phone [phone] Care Team Providers Care Agency Service Representative Name Role Phone Unavailable Primary Care Provider Unavailabl e Reason for Visit * Reason Comments Return Visit Encounter Details Date Type Department Care Team (Late st Contact Info) Description 09/17/2023 2:15 PM EST Office Visit Gynecology/Obstetric s [facility] [address] [place] [phone] Mame Pham CRNP [address] [place] [phone] Normal in second trimester*; Obesity in , antepartum; Depression complicating , antepartum; with history of ectopic , antepartum; Antepartum multigravida of advanced maternal age; Glucose intolerance of Allergies Active Allergy Reactions Criticality Noted [...] money to get more. Never true 06/17/2023 [place] Depression Scale Answer Date Recorded [place] Depression Scale Total 7 07/25/2023 The thought [...] file Travel History Travel Start Travel End [facility] 08/28/2023 09/06/2023 documented as of this encounter Last Filed Vital Signs Vital Sign Reading Time Taken Comments Blood Pressure 110/66 09/17/2023 2:25 PM EST Pulse - - Temperature - - Respiratory Rate - - Oxygen Saturation - - Inhaled Oxygen Concentration - - Weight 83 kg (183 lb) 09/17/2023 2:25 PM EST Height 152.4 cm (5') 09/17/2023 2:25 PM EST Body Mass Index 35.74 09/17/2023 2:25 PM EST documented in this encounter Progress Notes * Mame Pham CRNP - 09/17/2023 2:37 PM EST 20w5d Complaints: none Feeling well overall. +FM. No contractions, bleeding, or LOF. Anatomy u/s today, report not available. +cardiac activity on u/s. Needs colpo, wants to do in 2nd trimester rather than PP. Will have her schedule at checkout. SAVAGE Hercules * Britany Mendoza LPN - 09/17/2023 2:25 PM EST 20w5d Denies any issues documented in this encounter Plan of Treatment Upcoming Encounters Date Type Department Care Team (Late st Contact Info) Description 10/30/2023 9:00 AM EST Office Visit Gynecology/Obstetrics [facility] [address] [place] [address] Naima Xavier CRNP [address] [place] [address] 02/25/2024 12:40 PM EDT [facility] [address] [place] [phone] Milana Marques PA-C [address] [phone] Health Maintenance Due Date Last Done Comments [...] this encounter Visit Diagnoses Diagnosis Normal in second trimester- Primary Obesity in , antepartum Obesity complicating , childbirth, or the puerperium, antepartum condition or complication Depression complicating , antepartum Mental disorders of mother, antepartum with history of ectopic , antepartum Antepartum multigravida of advanced maternal age Glucose intolerance of Abnormal maternal glucose tolerance, complicating , childbirth, or the puerperium, unspecified as to episode of care documented in this encounter Advance Directives Latest Code Status on File Code Status Date Activated Date Inactivated Comments Full Code 06/08/2021 11:52 PM 06/09/2021 5:44 AM This order reflects the patients wishes and were consensually agreed upon. Question Answer Comments Discussion of Advance Directives occurred with: Not Discussed
--- OUTSIDE RECORDS SUMMARY | 2024-01-22 10:38 | External Medical Summary | Summary of Care ---
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 Never true 06/17/2023 [place] Depression Scale Answer Date Recorded [place] Depression Scale Total 7 07/25/2023 The thought [...] file Travel History Travel Start Travel End [facility] 08/28/2023 09/06/2023 documented as of this encounter Miscellaneous Notes * Telephone Encounter - Barbie Mckeon RN - 09/18/2023 8:27 AM EST Patient called and made aware . She verbalized understanding. [facility] Sent to scheduling to assist with this. * Telephone Encounter - Mame Phma CRNP - 09/18/2023 8:14 AM EST Needs u/s in about 2 weeks for missed anatomy, please help schedule. Order placed. documented in this encounter Plan of Treatment Upcoming Encounters Date Type Department Care Team (Late st Contact Info) Description 10/03/2023 9:00 AM EST Imaging Gynecology/Obstetrics [facility] [address] [place] [place] [address] 10/30/2023 9:00 AM EST Office Visit Gynecology/Obstetrics [facility] [address] [place] [address] Naima Xavier CRNP [address] [place] [address] 02/25/2024 12:40 PM EDT [facility] [address] [place] [phone] Milana Marques PA-C [address] [place] [address] Scheduled Orders Name Type Priority Associated Diagnoses Orde r Schedule US PREG LIMITED 1 OR MORE FETUSES Medical Imaging Routine Encounter for follow-up ultrasound of anatomy Expected: 10/02/2023 (Approximate), Expires: 10/18/2024 Health Maintenance Due Date Last Done Comments [...] as of this encounter Visit Diagnoses Diagnosis Encounter for follow-up ultrasound of anatomy- Primary documented in this encounter Advance Directives Latest Code Status on File Code Status Date Activated Date Inactivated Comments Full Code 06/08/2021 11:52 PM 06/09/2021 5:44 AM This order reflects the patients wishes and were consensually agreed upon. Question Answer Comments Discussion of Advance Directives occurred with: Not Discussed
--- OUTSIDE RECORDS SUMMARY | 2024-01-22 10:39 | External Medical Summary ---
Author Name Unknown Address Unknown Organization K01:[facility] [place] [address] [place] [address] Laboratory Report Ordering Provider Test Date Status RANDY GRADY 08/20/2023 10:21:28 Final Observation Date Value Abnormality Reference (Units ) Status Glucose [Mass/volume] in Serum or Plasma --3 hours post dose glucose 08/20/2023 10:21:28 67 Below low normal 70-139 (mg/dL) Final Performing Location [facility] [place] [address] [place] [address]
--- OUTSIDE RECORDS SUMMARY | 2024-01-22 10:39 | External Medical Summary | Summary of Care ---
Author Name Unknown Organization [facility] Address [address] [facility] [place] [place] [place] [address] Phone [phone] Care Team Providers Care Community Engagement Coordinator Name Role Phone Unavailable Primary Care Provider Unavailabl e Reason for Visit * Reason Comments Outpatient Testing Encounter Details Date Type Department Care Team (Late st Contact Info) Description 08/20/2023 7:00 AM EDT Laboratory Laboratory, [facility] [address] [place] [phone] [facility], Lab [address] [place] [address] Gl, Lab Excess Schedule [address] [place], [place] [phone] Glucose intolerance of Allergies Active Allergy Reactions Criticality Noted Date Comments No Known Drug Allergy 08/08/2010 documented as of this encounter (statuses as of 08/20/2023) Medications Medication Sig Dispensed Refills Start Date [...] as of this encounter (statuses as of 08/20/2023) Active Problems Problem Noted Date Diagnosed Date [...] as of this encounter (statuses as of 08/20/2023) Resolved Problems Problem Noted Date Diagnosed Date [...] as of this encounter (statuses as of 08/20/2023) Immunizations Name Administration Dates Next Due Covid-19 [...] money to get more. Never true 06/17/2023 [place] Depression Scale Answer Date Recorded [place] Depression Scale Total 7 07/25/2023 The thought [...] Team (Late st Contact Info) Description 09/17/2023 12:30 PM EST Imaging [facility] [address] [facility] [place] [address] 09/17/2023 2:15 PM EST Office Visit Gynecology/Obstetrics [facility] [address] [place] [address] Mame Pham CRNP [address] [place] [address] 02/25/2024 12:40 PM EDT Office Visit [facility] [address] [phone] Milana Marques PA-C [address] [facility] [place], [place] [phone] Pending Results Name Type Priority Associated Diagnoses Date /Time GESTATIONAL GLUCOSE TOLERANCE, 3 HOUR Lab Routine Glucose intolerance of 08/20/2023 7:13 AM EDT 100-G GESTATIONAL GLUCOSE, FASTING Lab Routine Glucose intolerance of 08/20/2023 7:13 AM EDT 100-G GESTATIONAL GLUCOSE, 1 HOUR Lab Routine Glucose intolerance of 08/20/2023 8:22 AM EDT 100-G GESTATIONAL GLUCOSE, 2 HOUR Lab Routine Glucose intolerance of 08/20/2023 9:23 AM EDT 100-G GESTATIONAL GLUCOSE, 3 HOUR Lab Routine Glucose intolerance of 08/20/2023 10:21 AM EDT Health Maintenance Due Date Last [...] as of this encounter Visit Diagnoses Diagnosis Glucose intolerance of Abnormal maternal glucose tolerance, [...]
--- OUTSIDE RECORDS SUMMARY | 2024-01-22 10:39 | External Medical Summary | Summary of Care ---
Author Name Unknown Organization [facility] Address [address] [address] Phone [phone] Care Team Providers Care Printing Screen Assembler Name Role Phone Unavailable Primary Care Provider Unavailabl e Reason for Visit * Reason Onset Date Comments Physical-Exam Pt is currently 15 weeks Has no concerns for today's visit -discuss covid and flu vaccines Medication Administration 08/13/2023 Flu an d/or Pneumo Inj Encounter Details Date Type Department Care Team (Late st Contact Info) Description 08/13/2023 1:40 PM EDT Office Visit [facility] [address] [phone] Milana Marques PA-C [address] [phone] Encounter for annual physical exam*; 15 weeks gestation of ; Depression complicating , antepartum; Adjustment disorder with depressed mood; Need for prophylactic vaccination and inoculation against influenza Allergies Active Allergy Reactions Criticality Noted Date Comments No Known Drug Allergy 08/08/2010 documented as of this encounter (statuses as of 08/13/2023) Medications Medication Sig Dispensed Refills Start Date End Date Status 28-0.8 MG Oral Tablet Take by mouth. 0 Active Vitamin B-6 25 MG Oral Tablet Take by mouth. 0 [...] as of this encounter (statuses as of 08/13/2023) Active Problems Problem Noted Date Diagnosed Date ASCUS with positive high risk HPV cervical [...] as of this encounter (statuses as of 08/13/2023) Resolved Problems Problem Noted Date Diagnosed Date [...] as of this encounter (statuses as of 08/13/2023) Immunizations Name Administration Dates Next Due Covid-19 [...] Date Smoking Tobacco: Never Smokeless Tobacco: Never Tobacco Cessation:Counseling Given: No Alcohol Use Standard Drinks/Week Comments Not Currently [...] money to get more. Never true 06/17/2023 [place] Depression Scale Answer Date Recorded [place] Depression Scale Total 7 07/25/2023 The thought [...] Sign Reading Time Taken Comments Blood Pressure 102/68 08/13/2023 1:19 PM EDT Pulse 101 08/13/2023 1:19 PM EDT Temperature 36.9 C (98.4 F) 08/13/2023 1:19 PM ED T Respiratory Rate 18 08/13/2023 1:19 PM EDT Oxygen Saturation 99% 08/13/2023 1:19 PM EDT Inhaled Oxygen Concentration - - Weight 81.6 kg (180 lb) 08/13/2023 1:19 PM EDT Height - - Body Mass Index 35.15 07/25/2023 11:27 AM EDT documented in this encounter Progress Notes * Natalie cAuña LPN - 08/13/2023 1:44 PM EDT PRE - ADMINISTRATION DOCUMENTATION Are you experiencing any cold symptoms or fever? No Have you had Guillain-Keeler Syndrome (an illness that causes paralysis) within the last 6 weeks? No Have you had the flu shot in the past? YES Have you ever had a reaction to the flu shot? No Natalie Acuña LPN, 08/13/2023 1:44 PM Immunization Administration Documentation Time Out Procedure Performed: Yes Patient Identified (Ask Name/Date of ): Yes Does the patient have a fever greater than 101 degrees today? No Patient allergic to latex? No VFC Stock: No Immunization(s) verified: Yes, Immunization Name: Flu, VIS Sheet(s) given: Yes Verified Side and Site: Yes Verified Shot(s) with Parent(s)/Patient: Yes * Milana Marques PA-C - 08/13/2023 1:26 PM EDT Images from the original note were not included. History of Present Illness Chief Complaint Patient presents with Physical-Exam Pt is currently 15 weeks Has no concerns for today's visit -discuss covid and flu vaccines Medication Administration Flu and/or Pneumo Inj Patient presents for annual PE. 15 weeks . Following with OB. Traveling to [facility] for vacation in 2 weeks. Wants to get flu shot today. Depression and anxiety well-controlled on Lexapro 10mg. Current Medications: Escitalopram Oxalate 10 MG Oral Tablet (Lexapro) 28-0.8 MG Oral Tablet Probiotic & Acidophilus Ex St Oral Capsule Vitamin B-6 25 MG Oral Tablet ROS Review of Systems Constitutional: Negative. Negative for appetite change, chills, diaphoresis, fatigue, fever and unexpected weight change. HENT: Negative. Eyes: Negative. Respiratory: Negative. Negative for cough, chest tightness, shortness of breath and wheezing. Cardiovascular: Negative. Negative for chest pain, palpitations and leg swelling. Gastrointestinal: Negative. Negative for abdominal distention, abdominal pain, blood in stool, constipation, diarrhea, nausea (morning sickness has subsided) and vomiting. Endocrine: Negative. Negative for cold intolerance, heat intolerance, polydipsia, polyphagia and polyuria. Genitourinary: Negative. Musculoskeletal: Negative. Negative for arthralgias, back pain, joint swelling, myalgias and neck pain. Skin: Negative. Allergic/Immunologic: Negative for environmental allergies and food allergies. Neurological: Negative. Hematological: Negative. Psychiatric/Behavioral: Negative. Negative for behavioral problems, confusion, decreased concentration, dysphoric mood, self-injury, sleep disturbance and suicidal ideas. The patient is not nervous/anxious. Physical Exam BP 102/68 | Pulse 101 | Temp 36.9 C (98.4 F) (Tympanic) | Resp 18 | Wt 81.6 kg (180 lb) | LMP 05/04/2023 (Approximate) | SpO2 99% | BMI 35.15 kg/m | BSA 1.86 m Physical Exam Vitals and nursing note reviewed. Constitutional: General: She is not in acute distress. Appearance: Normal appearance. She is not ill-appearing, toxic-appearing or diaphoretic. HENT: Right Ear: Tympanic membrane, ear canal and external ear normal. Left Ear: Tympanic membrane, ear canal and external ear normal. Nose: No congestion or rhinorrhea. Mouth/Throat: Pharynx: No oropharyngeal exudate or posterior oropharyngeal erythema. Eyes: Extraocular Movements: Extraocular movements intact. Conjunctiva/sclera: Conjunctivae normal. Pupils: Pupils are equal, round, and reactive to light. Neck: Vascular: No carotid bruit. Cardiovascular: Rate and Rhythm: Normal rate and regular rhythm. Heart sounds: Normal heart sounds. Pulmonary: Effort: Pulmonary effort is normal. Breath sounds: Normal breath sounds. Abdominal: General: There is no distension. Palpations: Abdomen is soft. Tenderness: There is no abdominal tenderness. There is no guarding. Musculoskeletal: General: Normal range of motion. Cervical back: Normal range of motion and neck supple. Right lower leg: No edema. Left lower leg: No edema. Lymphadenopathy: Cervical: No cervical adenopathy. Neurological: Mental Status: She is alert and oriented to person, place, and time. Cranial Nerves: No cranial nerve deficit. Motor: No weakness. Gait: Gait normal. Psychiatric: Mood and Affect: Mood normal. Behavior: Behavior normal. I have reviewed the following results: BMP results Recent Labs Units 06/12/23 1211 SODIUM - [facility] mmol/L 136 POTASSIUM - [facility] mmol/L 3.8 CHLORIDE - [facility] mmol/L 102 CO2 - [facility] mmol/L 22 CREATININE - [facility] mg/dL 0.5 BUN - [facility] mg/dL 6 Lipid panel resultsNo results for input(s): "CHOL", "LDLCALC", "HDL", "TRIG" in the last 96711 hours. CBC results Recent Labs Units 07/25/23 1223 06/12/23 1211 WBC AUTO - [facility] K/uL 8.56 8.35 HGB - [facility] g/dL 12.1 13.3 HCT - [facility] % 37.5 39.3 PLATELET AUTO - [facility] K/uL 319 299 HbA1c results No results for input(s): "HGBA1C" in the last 94760 hours. TSH results No results for input(s): "TSH" in the last 30260 hours. Vitamin D results No results for input(s): "25OHVITAMIND" in the last 65004 hours. Hepatic panel results Recent Labs Units 06/12/23 1211 PROTEIN - [facility] g/dL 8.0 BILIRUBIN, TOTAL - [facility] mg/dL 0.2 ALKALINE PHOSPHATASE - [facility] U/L 68 AST - [facility] U/L 18 ALT - [facility] U/L 22 Assessment and Plan Encounter for annual physical exam Healthy diet and lifestyle for disease prevention discussed. Age-appropriate anticipatory guidance given. Age-appropriate health screenings and immunizations also discussed. 15 weeks gestation of Follow up with OB as scheduled. Depression complicating , antepartum Adjustment disorder with depressed mood Continue Lexapro. Pt asked about reducing dose. She feels 10mg is working well, but would like to try to go to 5mg. I suggested first alternating 5mg and 10mg doses. If she doesn't notice a change insymptoms after 2 weeks, then she can try 5mg daily. Need for prophylactic vaccination and inoculation against influenza - INFLUENZA VACC, QUAD, PF, 6 MONTHS & UP, 0.5 ML, IM Wrap-Up Return in about 6 months (around 02/24/2024) for Follow up depression/anxiety. Time: I spent a total of 20-29 minutes (exact time 22 mins) on the date of service in preparation, delivery, and documentation of the care provided to Lisseth Sheets excluding any time spent in the performance of separately billed services. This note was completed using the dictation program Fluency Direct. As such, there may be misspellings, word substitutions, or other variations that should not change the essence of the clinical content of this encounter note. Please direct questions to me if need for clarification arises. documented in this encounter Plan of Treatment Upcoming Encounters Date Type Department Care Team (Late st Contact Info) Description 08/19/2023 9:30 AM EDT Office Visit Gynecology/Obstetrics [facility] [address] [address] Lamont Pérez MD [address] [address] 02/25/2024 12:40 PM EDT Office Visit [facility] [address] [phone] Milana Marques PA-C [address] [address] Health Maintenance Due Date Last Done Comments [...] this encounter Visit Diagnoses Diagnosis Encounter for annual physical exam- Primary 15 weeks gestation of state, incidental Depression complicating , antepartum Mental disorders of mother, antepartum Adjustment disorder with depressed mood Need for prophylactic vaccination and inoculation against influenza documented in this encounter Advance Directives Latest Code Status on File Code Status Date Activated Date Inactivated Comments Full Code 06/08/2021 11:52 PM 06/09/2021 5:44 AM This order reflects the patients wishes and were consensually agreed upon. Question Answer Comments Discussion of Advance Directives occurred with: Not Discussed
--- OUTSIDE RECORDS SUMMARY | 2024-01-22 10:39 | External Medical Summary | Summary of Care ---
Author Name Unknown Organization [facility] Address [address] [address] Phone [phone] Care Team Providers Care Capacitor Inspector Name Role Phone Unavailable Primary Care Provider Unavailabl e Reason for Visit * Reason Onset Date Comments Test Results 08/19/2023 Encounter Details Date Type Department Care Team (Late st Contact Info) Description 08/19/2023 Telephone Gynecology/Obstetrics [facility] [address] [place] [address] Naima Xavier CRNP [address] [id number] Test Results Allergies Active Allergy Reactions Criticality Noted Date Comments No Known Drug Allergy 08/08/2010 documented as of this encounter (statuses as of 08/19/2023) Medications Medication Sig Dispensed Refills Start Date [...] as of this encounter (statuses as of 08/19/2023) Active Problems Problem Noted Date Diagnosed Date [...] as of this encounter (statuses as of 08/19/2023) Resolved Problems Problem Noted Date Diagnosed Date [...] as of this encounter (statuses as of 08/19/2023) Immunizations Name Administration Dates Next Due Covid-19 [...] to get more. Never true 06/17/2023 [place] Depression Scale Answer Date Recorded [place] Depression Scale Total 7 07/25/2023 The thought [...] Telephone Encounter - Cheli Cheung RN - 08/19/2023 11:44 AM EDT GLUCOSE - [facility] Date/Time Value Ref Range Status 06/12/2023 12:11 PM 83 70 - 120 mg/dL Final 11/04/2020 08:38 AM 120 70 - 120 mg/dL Final GLUCOSE, URINE - [facility] Date/Time Value Ref Range Status 06/12/2023 01:26 PM Negative Negative mg/dL Final 10/06/2003 02:54 PM NEGATIVE NEG mg/dL Final Patient notified of abnormal glucola. The order has been placed in epic. Patient. advised to be NPO after 10pm the night before the test.The patient must stay on the premises for the entire time of the test. Patient counseled to take something to eat for after testing. Patient transferred to [facility] to schedule Wants do this at [facility] tomorrow. Transferred to set this up. * Telephone Encounter - Cheli Cheung RN - 08/19/2023 11:40 AM EDT left message for patient to call office * Telephone Encounter - Naima Xavier CRNP - 08/19/2023 11:18 AM EDT Elevated 1 hr GTT - please notify pt and assist in scheduling a fasting 3 hr glucose test. SAVAGE Tyson documented in this encounter Plan of Treatment Upcoming Encounters Date Type Department Care Team (Late st Contact Info) Description 08/20/2023 7:00 AM EDT Laboratory Laboratory, [facility] [address] [facility] [address] [phone] [facility], Lab [address] [address] [facility], Lab Excess Schedule [address] [address] 09/17/2023 12:30 PM EST Imaging Radiology [facility] 132 [facility] [address] [place] [address] 09/17/2023 2:15 PM EST Office Visit Gynecology/Obstetrics [facility] [address] [place] [address] Mame Pahm CRNP [address] [address] 02/25/2024 12:40 PM EDT Office Visit [facility] [place] [address] [phone] Milana Marques PA-C [address] [facility] [address] Scheduled Orders Name Type Priority Associated Diagnoses Orde r Schedule GESTATIONAL GLUCOSE TOLERANCE, 3 HOUR Lab Routine Glucose intolerance of Expected: 08/19/2023 (Approximate), Expires: 08/19/2024 Health Maintenance Due Date Last Done Comments [...] encounter Visit Diagnoses Diagnosis Glucose intolerance of - Primary Abnormal maternal glucose tolerance, complicating , childbirth, [...]
--- OUTSIDE RECORDS SUMMARY | 2024-01-22 10:39 | External Medical Summary | Summary of Care ---
Author Name Unknown Organization [facility] Address [address] [place] [address] Phone [phone] Care Team Providers Care Certification Technician Name Role Phone Unavailable Primary Care Provider Unavailabl e Reason for Visit * Reason Onset Date Comments Appointment 08/14/2023 Encounter Details Date Type Department Care Team (Late st Contact Info) Description 08/14/2023 Telephone Gynecology/Obstetrics [facility] [address] [facility] [address] Services, Scheduling [address] [place] [address] Appointment Allergies Active Allergy Reactions Criticality Noted Date Comments No Known Drug Allergy 08/08/2010 documented as of this encounter (statuses as of 08/14/2023) Medications Medication Sig Dispensed Refills Start Date [...] as of this encounter (statuses as of 08/14/2023) Active Problems Problem Noted Date Diagnosed Date [...] as of this encounter (statuses as of 08/14/2023) Resolved Problems Problem Noted Date Diagnosed Date [...] as of this encounter (statuses as of 08/14/2023) Immunizations Name Administration Dates Next Due Covid-19 [...] money to get more. Never true 06/17/2023 [place] Depression Scale Answer Date Recorded [place] Depression Scale Total 7 07/25/2023 The thought [...] Telephone Encounter - Cheli Cheung RN - 08/14/2023 11:47 AM EDT Spoke with pt. Pt was thinking of transferring her care to [place]. She has not made her decisionas to where she is continuing her care completely. She is pleased with her care here but upset about appointments. She is upset that an US was not scheduled at her first visit and she was asked to come in sooner so one could be done. Discussed that we recommend this but may not always be able to catch it ahead of time. Advised that they are scheduled visits and we did attempt to get her one but needed her to come in earlier for it. Pt also was told the only option to do her glucose was at 840 on Saturday and her appt is not until 930 and she can not come that early to do this. ADvised she should plan to come 30 min before but is required to stay 1 hour after finishing. I offered to schedule her at the location of her choice but she wanted to only see Dr. Haynes or Dr. Pal for her care. We discussed that they may not be conference services coordinator. She now thinks she wants a primary . I advised pt that this would need discussed with a physician. She feels that since she is having a , that would be scheduled. We discussed that the provider may not be available or she may need services sooner than scheduled. She is aware and okay in each of these situations to have anyone take care of her. I offered her to schedule her an appt with one of them to discuss but then she decided to keep her appt on Saturday with DR. Pérez. I advised if wanting to be seen in [place], should keep consistent with offices and also the physician she is seeing would need to make the call on the primary . Pt wants to just keep at [facility] for now and will make her decision moving forward after that visit. * Telephone Encounter - Chica Ordoñez RN - 08/14/2023 11:10 AM EDT Carmen, please review and advise. * Telephone Encounter - BENEDICTO Rapp - 08/14/2023 10:44 AM EDT Patient has been seen at both [facility] and [place] locations for her appointments buthas concerns regarding troubles at [facility] and is choosing to only be seen here on out at the [place] location by Sarai Haynes or Hannah Pal and doesn't want to see any other provider other than them at this time. Patient is choosing not to proceed with rescheduling her appointment at this time and would like a call back due to troubles at [facility] and also concerns. Please advise and call patient at [phone]. Thank you. documented in this encounter Plan of Treatment Upcoming Encounters Date Type Department Care Team (Late st Contact Info) Description 08/19/2023 9:10 AM EDT Laboratory Laboratory, [facility] [address] [phone] [facility] [address] [place] [address] 08/19/2023 9:30 AM EDT Office Visit Gynecology/Obstetrics [facility] [address] [address] Lamont Pérez MD 132 [facility] [address] [place] [address] 02/25/2024 12:40 PM EDT Office Visit [facility] [address] [phone] Milana Marques PA-C [address] [address] Health Maintenance Due Date Last Done [...]
--- OUTSIDE RECORDS SUMMARY | 2024-01-22 10:39 | External Medical Summary ---
Author Name Unknown Address Unknown Organization K01:[facility] - [address] [place] [address] Laboratory Report Ordering Provider Test Date Status RANDY GRADY 08/20/2023 07:13:09 Final Based on ACOG guideline, ges tational [...] Abnormality Reference (Units ) Status Glucose, fasting 08/20/2023 07:13:09 95 Above high no rmal 70-94 (mg/dL) Final Performing Location [facility] - [address] [place] [address]
--- OUTSIDE RECORDS SUMMARY | 2024-01-22 10:39 | External Medical Summary ---
Author Name Unknown Address Unknown Organization : Laboratory Report Ordering Provider Test Date Status MEDINA ROSS 08/19/2023 10:36:01 Final Observation Date Value Abnormality Reference (Units ) Status INTERPRETATION 08/19/2023 10:36:01 SEE BELOW Final Screen negative for open NTD RISK FOR ONTD 08/19/2023 10:36:01 <1:5000 Final CALC'D GESTATIONAL AGE 1008/19/2023 10:36:01 16.6 Final AFP, SERUM 08/19/2023 10:36:01 23.5 (ng/mL) Final AFP MOM 08/19/2023 10:36:01 0.72 Final Reference Range:
NTD <2 .50
IDD <1.90
TWINS <4.00
TWINS IDD <3.50
TRIPLETS <4.50
The AFP test result indicates that this patient is
screen negative for open NTD. It should be noted
that normal test results can never guarantee the
of a normal baby and that 2-3% of newborns
have some type of physical or mental defect, many
of which are undetectable through any known
diagnostic technique.
This is a screening test, not a diagnostic test.
This risk assessment report is based in part on
demographic data provided by the ordering
physician. Please notify the laboratory promptly
if any data are incorrect. For assistance with
recalculations, please call your local [facility] laboratory. For assistance with
interpretation of these results, please contact
your Local [facility] genetic counselor or
call [phone] ([phone]).
Interpretive Cutoffs
Screen Positive for Open NTD:
> or = 2.50 adjusted MOM
> or = 1.90 adjusted MOM for insulin- dependent diabetics
> or = 4.00 adjusted MOM for twins
> or = 3.50 adjusted MOM for twins insulin-dependent diabetics
> or = 4.50 adjusted MOM for triplets
For additional information, please refer to
[email or web address]
(This link is being provided for
informational/educational purposes only.) DATE OF 08/19/2023 10:36:01 1985 Final COLLECTION DATE 08/19/2023 10:36:01 08/19/2023 Final MATERNAL WEIGHT 08/19/2023 10:36:01 179 (lbs ) Final EST'D DATE OF DELIVERY 08/19/2023 10:36:01 01/30/2024 Final CHANTALE DETERMINED BY 08/19/2023 10:36:01 LMP Final MOTHER'S ETHNIC ORIGIN 08/19/2023 10:36:01 WHITE Final NUMBER OF FETUSES 08/19/2023 10:36:01 1 Final INSULIN DEPEND DIABETIC 08/19/2023 10:36:01 NO Final REPEAT SPECIMEN 08/19/2023 10:36:01 NO Final HX OF NEURAL TUBE DEFECTS 08/19/2023 10:36:01 NO Final PREV DOWN SYND 08/19/2023 10:36:01 NO Final DONOR EGG 08/19/2023 10:36:01 NO Final DONOR AGE: EGG RETRIEVAL 08/19/2023 10:36:01 NOT GIVEN Final Test performed by [facility]
[address],
[place] [address]

Shuttle Inspector: Loreto North MD,PHD,AC
[facility],
[facility],
[id number] [place], [place]
Heriberto Sheth M.D., Ph.D., Director of Laboratories
, [facility] [id number] Performing Location
--- OUTSIDE RECORDS SUMMARY | 2024-01-22 10:39 | External Medical Summary | Summary of Care ---
Author Name Unknown Organization [facility] Address [address] [facility] [address] Phone [phone] Care Team Providers Care Net Developer Contract Name Role Phone Unavailable Primary Care Provider Unavailabl e Reason for Visit * Reason Comments Return Visit Encounter Details Date Type Department Care Team (Late st Contact Info) Description 08/19/2023 9:30 AM EDT Office Visit Gynecology/Obstetric s Ermias Samaniego [address] [place] [address] Lamont Pérez MD [address] [place] [address] Normal in second trimester*; Obesity in , antepartum; Depression complicating , antepartum; in second trimester with history of ectopic , antepartum; Multigravida of advanced maternal age in second trimester Allergies Active Allergy Reactions Criticality Noted [...] the morning. 90 Tablet 1 08/03/2023 Active Vitamin B-6 25 MG Oral Tablet Take by mouth. 0 08/19/2023 Discontin ued (Medication List Clean Up) documented as of this encounter (statuses as [...] money to get more. Never true 06/17/2023 [place] Depression Scale Answer Date Recorded [place] Depression Scale Total 7 07/25/2023 The thought [...] Sign Reading Time Taken Comments Blood Pressure 118/68 08/19/2023 9:39 AM EDT Pulse - - Temperature - - Respiratory Rate - - Oxygen Saturation - - Inhaled Oxygen Concentration - - Weight 81.6 kg (180 lb) 08/19/2023 9:39 AM EDT Height 152.4 cm (5') 08/19/2023 9:39 AM EDT Body Mass Index 35.15 08/19/2023 9:39 AM EDT documented in this encounter Progress Notes * Britany Mendoza LPN - 08/19/2023 9:39 AM EDT 16w4d Doing early glucola Discuss csection vs vaginal delivery * Lamont Pérez MD - 08/19/2023 9:33 AM EDT 1st time seeing pt Doing well No complaints AMA documented in this encounter Plan of Treatment Upcoming Encounters Date Type Department Care Team (Late st Contact Info) Description 08/20/2023 7:00 AM EDT Laboratory Laboratory, [facility] [address] [facility] [place] [phone] [facility], Lab [address] [place] [address] [facility], Lab Excess Schedule [address] [facility] [place] [id number] 09/17/2023 12:30 PM EST Imaging Radiology [facility] [address] [facility] [place] [address] 09/17/2023 2:15 PM EST Office Visit Gynecology/Obstetrics [facility] [address] [place] [address] Mame Pham CRNP [address] [place] [address] 02/25/2024 12:40 PM EDT Office Visit [facility] [address] [place] [phone] Milana Marques PA-C [address] [place] [place] [phone] Pending Results Name Type Priority Associated Diagnoses Date /Time MATERNAL SERUM AFP Lab Routine Multigravida of advanced maternal age in second trimester 08/19/2023 10:36 AM EDT Scheduled Orders Name Type Priority Associated Diagnoses Orde r Schedule US PREG SINGLE/1ST GEST, 14 WEEKS OR LATER Medical Imaging Routine Normal in second trimester Expected: 09/19/2023 (Approximate), Expires: 09/19/2024 Health Maintenance Due Date Last Done Comments [...] antepartum Mental disorders of mother, antepartum in second trimester with history of ectopic , antepartum Multigravida of advanced maternal age in second trimester documented in this encounter Advance Directives Latest Code Status on File Code Status Date Activated Date Inactivated Comments Full Code 06/08/2021 11:52 PM 06/09/2021 5:44 AM This order reflects the patients wishes and were consensually agreed upon. Question Answer Comments Discussion of Advance Directives occurred with: Not Discussed
--- OUTSIDE RECORDS SUMMARY | 2024-01-22 10:39 | External Medical Summary | Summary of Care ---
Author Name Unknown Organization [facility] Address [address] [facility] [address] Phone [phone] Care Team Providers Care Car Pre Cooler Name Role Phone Unavailable Primary Care Provider Unavailabl e Reason for Visit * Reason Comments Outpatient Testing Encounter Details Date Type Department Care Team (Late st Contact Info) Description 08/19/2023 9:10 AM EDT Laboratory Laboratory, [facility] [address] [facility] [place] [phone] [facility] [address] [facility] [place] [address] Obesity in , antepartum Allergies Active Allergy [...] money to get more. Never true 06/17/2023 [place] Depression Scale Answer Date Recorded [place] Depression Scale Total 7 07/25/2023 The thought [...] Description 09/17/2023 12:30 PM EST Imaging Radiology [facility] [address] [place] [address] 09/17/2023 2:15 PM EST Office Visit Gynecology/Obstetrics [facility] [address] [place] [address] Mame Pham CRNP [address] [place] [address] 02/25/2024 12:40 PM EDT Office Visit Family Practice, [place] [address] [place] [phone] Milana Marques PA-C [address] [place] [address] Pending Results Name Type Priority Associated Diagnoses Date /Time 50-G GESTATIONAL GLUCOSE, 1 HOUR Lab Routine Obesity in , antepartum 08/19/2023 10:36 AM EDT Health Maintenance Due Date Last [...] as of this encounter Visit Diagnoses Diagnosis Obesity in , antepartum Obesity complicating , [...]
--- OUTSIDE RECORDS SUMMARY | 2024-01-22 10:39 | External Medical Summary ---
Author Name Unknown Address Unknown Organization [id number]:[facility] - [address] [place] [address] Laboratory Report Ordering Provider Test Date Status RANDY GRADY 08/19/2023 10:36:01 Final Observation Date Value Abnormality Reference (Units ) Status Glucose [Moles/volume] in Serum or Plasma --1 hour post 50 g glucose PO 08/19/2023 10:36:01 149 Above high normal 70-129 (mg/dL) Final Performing Location [facility] 57[address] 0 - [address] [place] [address]
--- OUTSIDE RECORDS SUMMARY | 2024-01-22 10:39 | External Medical Summary ---
Author Name Unknown Address Unknown Organization K01:[facility] - [address] [place] [address] Laboratory Report Ordering Provider Test Date Status RACHEL GRADYER 08/20/2023 09:23:31 Final Observation Date Value Abnormality Reference (Units ) Status Glucose, 2-hr post glucose challenge 08/20/2023 09:23:31 142 70-154 (mg/dL) Final Performing Location [facility] - [address] [place] [address]
--- OUTSIDE RECORDS SUMMARY | 2024-01-22 10:39 | External Medical Summary ---
Author Name Unknown Address Unknown Organization K01:LAB[facility] - [address] [place] [address] Laboratory Report Ordering Provider Test Date Status RANDY GRADY 08/20/2023 08:22:39 Final Observation Date Value Abnormality Reference (Units ) Status Glucose [Mass/volume] in Serum or Plasma --1 hour post dose glucose 08/20/2023 08:22:39 160 70-179 (mg/dL) Final Performing Location LABOR[facility]ORY [facility] - [address] [place] [address]
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
--- OUTSIDE RECORDS SUMMARY | 2024-01-22 10:40 | External Medical Summary | Summary of Care ---
Author Name Unknown Organization [facility] Address [address] [place] [address] Phone [phone] Care Team Providers Care Atg Architect Name Role Phone Unavailable Primary Care Provider Unavailabl e Reason for Visit * Reason Onset Date Comments Mycode Lab Reorder 07/30/2023 Encounter Details Date Type Department Care Team Description 07/30/2023 Orders Only Outcomes Research Department [address] [place], [place] [id number] Florence Tineo CHRA MyCode Research Other*[id number]* Allergies Active Allergy Reactions Severity Noted Date Comments No Known Drug Allergy 08/08/2010 documented as of this encounter (statuses as of 07/30/2023) Medications Medication Sig Dispensed Refills Start Date End Date Status Escitalopram Oxalate 10 MG Oral Tablet (Lexapro) Take 1 Tablet by mouth in the morning. 90 Tablet 0 05/09/2023 Active 28-0.8 MG Oral Tablet Take by mouth. 0 Active Vitamin B-6 25 MG Oral Tablet Take by mouth. 0 Active Probiotic & Acidophilus Ex St Oral Capsule Take 1 Capsule by mouth in the morning and 1 Capsule at noon and 1 Capsule in the evening. Take with meals. 0 Active documented as of this encounter (statuses as of 07/30/2023) Active Problems Problem Noted Date Normal 07/25/2023 Obesity in , antepartum 023 [...] as of this encounter (statuses as of 07/30/2023) Resolved Problems Problem Noted Date Resolved Date [...] as of this encounter (statuses as of 07/30/2023) Immunizations Name Administration Dates Next Due Covid-19 [...] as of this encounter Progress Notes * CLIFFORD Jaime - 07/30/2023 2:17 PM EDT MyCode lab reordered. documented in this encounter Plan of Treatment Upcoming Encounters Date Type Specialty Care Team Description 08/13/2023 Office Visit Family Medicine Milana Marques PA-C [address] [place] [address] 08/20/2023 Laboratory Laboratory [facility] [place] [address] 08/20/2023 Office Visit Gynecology Obstetrics Mame Pham CRNP [address] [place] [address] Scheduled Orders Name Type Priority Associated Diagnoses Orde r Schedule MYCODE SUBSEQUENT ADULT Lab Routine MyCode Research Other*[id number] Every 6 Months for 2 Occurrences starting 07/30/2023 until 08/18/2024 Health Maintenance Due Date Last Done Comments HPV/Co-Test 2017 Depression Screening 08/05/2021 08/05/2020 COVID-19 Vaccine (2 - 2022-24 season) 2023 01/19/2021 Influenza Vaccine (FLU shot) (#1) 2023 08/07/2021, 08/05/2020, 10/18/2006 Cervical Cancer Screening 08/08/2023 Pap Smear 08/08/2023 08/08/2020, 03/21, 07/29/2014, Additional history exists Diabetes Screening 06/12/2026 06/12/2023, 0 06/08/2021, 06/01/2021, Additional history exists DTaP,Tdap,and Td Vaccines (8 - Td or [...] as of this encounter Visit Diagnoses Diagnosis MyCode Research Other*[id number]- Primary documented in this encounter Advance Directives Latest Code Status on File Code Status Date Activated Date Inactivated Comments Full Code 06/08/2021 11:52 PM 06/09/2021 5:44 AM This order reflects the patients wishes and were consensually agreed upon. Question Answer Comments Discussion of Advance Directives occurred with: Not Discussed
--- OUTSIDE RECORDS SUMMARY | 2024-01-22 10:40 | External Medical Summary | Summary of Care ---
Author Name Unknown Organization [facility] Address [address] [facility] [address] Phone [phone] Care Team Providers Care Fare Enforcement Officer Name Role Phone Unavailable Primary Care Provider Unavailabl e Reason for Visit * Reason Onset Date Comments Test Results 08/02/2023 Encounter Details Date Type Department Care Team Description 08/02/2023 Telephone Gynecology/Obstetrics [facility] [address] [place] [address] Naima Xavier CRNP [address] [place] [phone] Test Results Allergies Active Allergy Reactions Severity Noted Date Comments No Known Drug Allergy 08/08/2010 documented as of this encounter (statuses as of 08/02/2023) Medications Medication Sig Dispensed Refills Start Date [...] as of this encounter (statuses as of 08/02/2023) Active Problems Problem Noted Date ASCUS with [...] as of this encounter (statuses as of 08/02/2023) Resolved Problems Problem Noted Date Resolved Date [...] as of this encounter (statuses as of 08/02/2023) Immunizations Name Administration Dates Next Due Covid-19 Ad26, Single Dose (Varsha/J&J) 01/19/2021 DTaP Dipth/Tet/Acell Pertussis (Infanrix), Peds 04/26/1993,05/31/1989,04/27/1988,1987,1987 HIB PRP-T, 4 dose (ActHib) 05/31/1989 Hepatitis B, 0-19 yrs 08/08/1998,03/07/1998,04/0 03/1998 MMR - Measles/Mumps/Rubella Vaccine 04/26/1993,0 02/15/1989 OPV - Polio Virus Vaccine (Oral) 993,05/31/1989,04/27/1988,1987,1987 PPD 10/26/1988 SEASONAL INFLUENZA, PF, 6 M & Above, IM , (FLULAVAL or FLUZONE) 08/07/2021,08/05/2020 Seasonal Influenza, Split, I IV3, With Preserve, [...] encounter Miscellaneous Notes * Telephone Encounter - BENEDICTO Rodríguez - 08/02/2023 2:25 PM EDT Pt scheduled * Telephone Encounter - Barbie Mckeon RN - 08/02/2023 1:54 PM EDT Patient called back and made aware. Patient has further questions about colpo and would like recommendations on future treatment options. Patient has family history of energy director cancer and would like to talk to provider before deciding when to do colpo. Patient advised she should probably discuss her concerns with a physician. R/s her next FÉLIX in a [address] Pérez so that she can discuss herconcerns. Patient agreeable. Patient had glucola testing scheduled for next visit. Please assist with r/s for same day at F[facility]LIX 08/19/2023 * Telephone Encounter - Linnette Andrade LPN - 08/02/2023 1:36 PM EDT left message for patient to call office * Telephone Encounter - SAVAGE Del Real - 08/02/2023 1:30 PM EDT Pap ASCUS +HPV - can do colposcopy in 2nd trimester, or defer to . SAVAGE Tyson documented in this encounter Plan of Treatment Upcoming Encounters Date Type Specialty Care Team Description 08/13/2023 Office Visit Family Medicine Milana Marques PA-C [address] [place] [address] 08/19/2023 Office Visit Gynecology Obstetrics Lamont Pérez MD [address] [place] [address] 08/20/2023 Laboratory Laboratory Lisa Samaniego [address] [place] [address] Health Maintenance Due Date Last Done Comments [...]
--- OUTSIDE RECORDS SUMMARY | 2024-01-22 10:40 | External Medical Summary | Summary of Care ---
Author Name Unknown Organization [facility] Address [address] [facility] [address] Phone [phone] Care Team Providers Care Plastics Production Machine Operator Name Role Phone Unavailable Primary Care Provider Unavailabl e Reason for Visit * Reason Onset Date Comments Test Results 08/02/2023 Encounter Details Date Type Department Care Team Description 08/02/2023 Telephone Gynecology/Obstetrics [facility] [address] [place] [address] Naima Xavier CRNP [address] [place] [address] Test Results Allergies Active Allergy Reactions Severity [...] treatment options. 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
[2024-01-22] MEDS ORDERED: ePHEDrine sulfate 50 MG/ML AMP IV PRN (11:02)
[2024-01-22] MEDS ORDERED: BUPIVACAINE 0.25% PF 30 ML VIAL EPI PRN (11:02)
[2024-01-22] MEDS ORDERED: NALBUPHINE HCL 5 MG in SYRINGE 0 ML IV PRN (11:02)
[2024-01-22] MEDS ORDERED: fentaNYL citrate PF 100 MCG/2 ML VIAL EPI PRN (11:02)
[2024-01-22] MEDS ORDERED: diphenhydrAMINE 50 MG/ML VIAL IV PRN (11:02)
[2024-01-22] MEDS ORDERED: SODIUM CHLORIDE 0.9% PF INJ 10 ML VIAL EPI PRN (11:02)
[2024-01-22] MEDS ORDERED: fentANYL 2 MCG/ML BUPIVacaine 0.125%-NSS 100ML BAG EPI PRN (11:02)
[2024-01-22] MEDS ORDERED: NALOXONE HCL 1 MG in SODIUM CHLORIDE 0.9% 1,000 ML IV PRN (11:02)
[2024-01-22] MEDS ORDERED: NALOXONE HCL 0.4 MG/1 ML VIAL/CARP IV PRN (11:02)
[2024-01-22] MEDS ORDERED: ROPIVACAINE 0.5% PF 5 MG/ML 20 ML VIAL EPI PRN (11:02)
[2024-01-22] MEDS ORDERED: LIDOCAINE 2% MPF LOCAL 5 ML VIAL EPI PRN (11:02)
--- NOTE | 2024-01-22 11:02 | Anesthesiology Consultation ---
Date of Service January 22, 2024 Assessment & Plan (1) Encounter for pre-operative examination: Chart Review Chart Review: Patient NOT seen in Pre Admission Testing and Acceptable Risk for Labor Epidural Consults Requested none History Height/Weight Height: 5 ft Weight: 83.007 kg Allergies Allergy/AdvReac Type Severity Reaction Status Date / Time No Known Allergies Allergy Unverified 01/21/24 23:31 Medications Home Medications Medication Instructions Recorded Confirmed Last Taken blood sugar diagnostic (OneTouch 01/21/24 01/21/24 Unknown Verio test strips) blood-glucose meter (OneTouch 01/21/24 01/21/24 Unknown Verio Flex Meter) escitalopram oxalate 10 mg tablet 10 mg PO DAILY 01/21/24 01/22/24 01/22/24 06:00 (Lexapro) ferrous sulfate 325 mg (65 mg 325 mg PO DAILY 01/21/24 01/22/24 01/21/24 10:00 iron) tablet lancets 30 gauge 01/21/24 01/21/24 Unknown vit no.95-ferrous 1 tab PO DAILY 01/21/24 01/22/24 01/21/24 22:00 fumarate 28 mg-folic acid 800 mcg tablet () Active Medications Generic Name Dose Route Start Last Admin Trade Name Freq PRN Reason Stop Dose Admin Lactated Ringer's 1,000 mls @ 125 mls/hr 01/22/24 07:28 01/22/24 09:34 Lr IV 01/24/24 07:27 125 mls/hr .Q8H PRN Administration L&D Protocol Protocol Oxytocin 30 units in 500 mls @ 6 mls/hr 01/22/24 08:16 01/22/24 10:00 Pitocin 30 Units/Nss IV 01/24/24 08:15 0.36 units/hr .Q24H PRN 6 mls/hr Labor Induction/Augmentation Titration Protocol 0.36 UNITS/HR Past Medical History Medical History ASCUS with positive high risk HPV cervical Dysplasia of cervix Anemia Gestational diabetes mellitus (GDM) Depression Ectopic Past Surgical History Surgical History History of salpingectomy Social History Smoking Status: Never smoker Do You Dip or Chew Tobacco: No Hx Alcohol Use: No Hx Substance Use: No substance use type: former substance user Substance Use Type Other:: Marijuana Last Used Substance Other:: stopped 05/2023 Physical Exam Vital Signs Last Vital Signs Temp 98.8 F 01/22/24 09:30 Pulse 87 01/22/24 10:34 Resp 18 01/22/24 07:29 BP 115/74 01/22/24 10:34 Testing Laboratory Results 01/22/24 07:34 Blood Type Cancelled 01/22/24 07:34 Antibody Screen Cancelled 01/22/24 07:34
[2024-01-22] MEDS: fentANYL 2 MCG/ML BUPIVacaine 0.125%-NSS 100ML BAG ONE (11:26)
[2024-01-22] MEDS: LIDOCAINE 2%/EPINEPHRINE 1:200,000 20 ML PF ONE (11:26)
[2024-01-22] MEDS: BUPIVACAINE 0.25% PF 30 ML VIAL ONE (11:26)
[2024-01-22] MEDS: SODIUM CHLORIDE 0.9% PF INJ 10 ML VIAL ONE (11:31)
[2024-01-22] MEDS: fentaNYL citrate PF 100 MCG/2 ML VIAL ONE (11:32)
[2024-01-22] MEDS: ePHEDrine sulfate 50 MG/ML AMP ONE (11:47)
--- NOTE | 2024-01-22 12:36 | Obstetrical Progress Note ---
Date of Service January 22, 2024 Assessment & Plan Admission and Anticipated Discharge Date Admission Date: January 22, 2024 Subjective Patient is reevaluated. She has received epidural for pain and now comfortable. Vital signs stable afebrile, heart rate category 1, external tocodynamometry is not reporting contractions well. Oxytocin is at 10 mIU/min. Cervix is checked by myself, 1 cm dilated, 70% effaced, head at -3 station, clear fluid is noted, IUPC was placed to monitor contractions better and adjust the dose of oxytocin. Continue monitor closely. Results & Data Vital Signs (Past 12 Hours) Vital Signs Temp Pulse Resp BP Pulse Ox 01/22/24 12:32 94 H 102/55 L 100 01/22/24 12:27 104 H 100 01/22/24 12:26 107 H 100/63 01/22/24 12:22 128 H 100 01/22/24 12:20 103 H 107/69 01/22/24 12:17 107 H 100 01/22/24 12:15 105 H 112/71 01/22/24 12:12 103 H 100 01/22/24 12:10 103 H 109/74 01/22/24 12:07 107 H 100 01/22/24 12:06 105 H 112/75 01/22/24 12:02 102 H 100 01/22/24 12:01 16 01/22/24 12:01 16 01/22/24 12:00 109 H 18 111/75 01/22/24 11:57 104 H 100 01/22/24 11:55 111 H 104/69 01/22/24 11:52 108 H 100 01/22/24 11:50 105 H 104/66 01/22/24 11:49 110 H 108/66 01/22/24 11:47 96 H 100 01/22/24 11:46 16 01/22/24 11:46 16 01/22/24 11:45 99 H 75/42 L 01/22/24 11:42 103 H 100 01/22/24 11:40 112 H 83/52 L 01/22/24 11:37 105 H 100 01/22/24 11:36 16 01/22/24 11:36 16 01/22/24 11:35 114 H 103/63 01/22/24 11:34 109 H 93 01/22/24 11:32 98 H 110/67 100 01/22/24 11:31 110 H 84/53 L 01/22/24 11:30 18 01/22/24 11:30 36.7 C 18 01/22/24 11:29 104 H 84/53 L 01/22/24 11:27 111 H 100 01/22/24 11:26 111 H 101/50 L 01/22/24 11:25 16 01/22/24 11:25 16 01/22/24 11:22 105 H 100 01/22/24 11:21 99 H 126/76 01/22/24 11:17 88 100 01/22/24 11:12 89 97 01/22/24 11:07 92 H 99 01/22/24 11:04 88 120/56 L 01/22/24 11:02 86 98 01/22/24 10:34 87 115/74 01/22/24 10:04 84 110/69 01/22/24 09:35 85 115/65 01/22/24 09:30 37.1 C 01/22/24 09:04 83 110/71 01/22/24 08:38 88 117/81 01/22/24 07:29 36.9 C 18 119/80 01/22/24 07:20 90 119/80
--- NOTE | 2024-01-22 16:57 | Obstetrical Progress Note ---
Date of Service January 22, 2024 Assessment & Plan Admission and Anticipated Discharge Date Admission Date: January 22, 2024 Subjective Patient is seen and examined. She has been comfortable VE; 6-7 cm/ 100%/ +1 with contraction, IUPC is removed. Anterior fontanelle at 9 o'clock position, LOP FHR categ I Continue to monitor closely Results & Data Vital Signs (Past 12 Hours) Vital Signs Temp Pulse Resp BP Pulse Ox 01/22/24 16:52 107 H 97 01/22/24 16:47 93 H 100 01/22/24 16:42 96 H 100 01/22/24 16:41 93 H 120/75 01/22/24 16:37 97 H 100 01/22/24 16:32 87 100 01/22/24 16:30 18 01/22/24 16:30 36.8 C 18 01/22/24 16:27 100 01/22/24 16:27 93 H 01/22/24 16:27 88 129/75 01/22/24 16:22 107 H 99 01/22/24 16:17 119 H 100 01/22/24 16:12 93 H 100 01/22/24 16:11 85 125/73 01/22/24 16:09 106 H 92 01/22/24 16:07 101 H 100 01/22/24 16:02 110 H 100 01/22/24 16:00 16 01/22/24 16:00 16 01/22/24 15:57 97 H 100 01/22/24 15:56 107 H 105/60 01/22/24 15:52 97 H 100 01/22/24 15:47 101 H 100 01/22/24 15:42 96 H 100 01/22/24 15:41 103 H 117/68 01/22/24 15:37 101 H 100 01/22/24 15:32 100 H 100 01/22/24 15:30 16 01/22/24 15:30 36.8 C 16 01/22/24 15:27 106 H 100 01/22/24 15:26 111 H 120/69 01/22/24 15:22 103 H 100 01/22/24 15:17 95 H 100 01/22/24 15:12 96 H 100 01/22/24 15:11 99 H 119/81 01/22/24 15:07 102 H 100 01/22/24 15:02 109 H 100 01/22/24 15:00 16 01/22/24 15:00 16 01/22/24 14:57 122 H 98 01/22/24 14:56 106 H 117/60 01/22/24 14:52 98 H 100 01/22/24 14:47 96 H 100 01/22/24 14:42 103 H 100 01/22/24 14:40 108 H 128/67 01/22/24 14:37 99 01/22/24 14:37 104 H 01/22/24 14:37 105 H 122/55 L 01/22/24 14:32 91 H 100 01/22/24 14:31 100 H 122/83 01/22/24 14:30 18 01/22/24 14:30 18 01/22/24 14:27 105 H 100 01/22/24 14:22 95 H 100 01/22/24 14:21 91 H 123/77 01/22/24 14:17 96 H 100 01/22/24 14:15 93 H 119/80 01/22/24 14:12 95 H 100 01/22/24 14:10 85 118/79 01/22/24 14:07 87 100 01/22/24 14:05 96 H 117/77 01/22/24 14:03 92 H 91 01/22/24 14:02 95 H 100 01/22/24 14:01 90 118/76 01/22/24 14:00 18 01/22/24 14:00 18 01/22/24 13:57 93 H 100 01/22/24 13:55 89 123/80 01/22/24 13:52 89 123/77 100 01/22/24 13:47 90 100 01/22/24 13:45 90 121/78 01/22/24 13:42 91 H 100 01/22/24 13:40 90 119/75 01/22/24 13:37 91 H 100 01/22/24 13:35 88 115/72 01/22/24 13:32 89 100 01/22/24 13:31 88 113/72 01/22/24 13:30 16 01/22/24 13:30 36.8 C 16 01/22/24 13:27 90 100 01/22/24 13:26 85 93 01/22/24 13:25 87 125/78 01/22/24 13:22 117 H 100 01/22/24 13:20 83 97/53 L 01/22/24 13:17 88 100 01/22/24 13:15 88 101/65 01/22/24 13:12 86 100 01/22/24 13:10 88 104/57 L 01/22/24 13:07 87 100 01/22/24 13:06 85 104/59 L 01/22/24 13:02 97 01/22/24 13:02 89 01/22/24 13:02 89 111/62 01/22/24 13:00 90 16 109/61 01/22/24 12:57 89 100 01/22/24 12:56 84 104/61 01/22/24 12:52 84 100 01/22/24 12:50 88 107/72 01/22/24 12:47 90 100 01/22/24 12:46 86 104/67 01/22/24 12:42 88 100 01/22/24 12:40 91 H 98/56 L 01/22/24 12:37 91 H 100 01/22/24 12:36 89 99/58 L 01/22/24 12:32 94 H 102/55 L 100 01/22/24 12:30 16 01/22/24 12:30 16 01/22/24 12:27 104 H 100 01/22/24 12:26 107 H 100/63 01/22/24 12:22 128 H 100 01/22/24 12:20 103 H 107/69 01/22/24 12:17 107 H 100 01/22/24 12:15 105 H 112/71 01/22/24 12:12 103 H 100 01/22/24 12:10 103 H 109/74 01/22/24 12:07 107 H 100 01/22/24 12:06 105 H 112/75 01/22/24 12:02 102 H 100 01/22/24 12:01 16 01/22/24 12:01 16 01/22/24 12:00 109 H 18 111/75 01/22/24 11:57 104 H 100 01/22/24 11:55 111 H 104/69 01/22/24 11:52 108 H 100 01/22/24 11:50 105 H 104/66 01/22/24 11:49 110 H 108/66 01/22/24 11:47 96 H 100 01/22/24 11:46 16 01/22/24 11:46 16 01/22/24 11:45 99 H 75/42 L 01/22/24 11:42 103 H 100 01/22/24 11:40 112 H 83/52 L 01/22/24 11:37 105 H 100 01/22/24 11:36 16 01/22/24 11:36 16 01/22/24 11:35 114 H 103/63 01/22/24 11:34 109 H 93 01/22/24 11:32 98 H 110/67 100 01/22/24 11:31 110 H 84/53 L 01/22/24 11:30 18 01/22/24 11:30 36.7 C 18 01/22/24 11:29 104 H 84/53 L 01/22/24 11:27 111 H 100 01/22/24 11:26 111 H 101/50 L 01/22/24 11:25 16 01/22/24 11:25 16 01/22/24 11:22 105 H 100 01/22/24 11:21 99 H 126/76 01/22/24 11:17 88 100 01/22/24 11:12 89 97 01/22/24 11:07 92 H 99 01/22/24 11:04 88 120/56 L 01/22/24 11:02 86 98 01/22/24 10:34 87 115/74 01/22/24 10:04 84 110/69 01/22/24 09:35 85 115/65 01/22/24 09:30 37.1 C 01/22/24 09:04 83 110/71 01/22/24 08:38 88 117/81 01/22/24 07:29 36.9 C 18 119/80 01/22/24 07:20 90 119/80
[2024-01-22] MEDS ORDERED: HYDROCORTISONE ACETATE 25 MG SUPP PR PRN (18:49)
[2024-01-22] MEDS ORDERED: oxyCODONE/ACETAMINOPHEN 5mg/325mg TAB PO PRN (18:49)
[2024-01-22] MEDS ORDERED: bisacodyL 10 MG SUPP PR PRN (18:49)
--- NOTE | 2024-01-22 18:52 | Delivery Summary ---
Vaginal Delivery Summary Date of Service January 22, 2024 Vaginal Delivery Summary Patient was found to be fully dilated and desires to push. She pushed for about 10 min and delivered the head and then shoulders with minimal traction without difficulty. The baby was handed off to the mother. The cord was clampedx2 and cut at 1 minute. The vagina and perineum were checked and found to have second degree perineal laceration. The vaginal mucosa was repaired with 2/0 vicryl and skin on subcuticular fashion. The placenta was delivered spontaneously as intact and complete. The uterus was explored and found to be empty. QBL was 100 ml. The fundus was firm The baby was a viable male , Apgars 7/8, the weight is pending The mother and the baby tolerated the procedure well. No complications happened and I was present during whole procedure.
--- NOTE | 2024-01-22 19:56 | Anesthesia Procedure Note ---
Date of Service January 22, 2024 Anesthesia Post Epidural Note Vital Signs Vital Signs: Temp Pulse Resp BP Pulse Ox 37.0 C 109 H 18 123/63 100 01/22/24 18:45 01/22/24 19:45 01/22/24 19:20 01/22/24 19:45 01/22/24 18:22 Notes Mental Status: alert / awake / arousable and participated in evaluation Nausea / Vomiting: adequately controlled Pain: adequately controlled Airway Patency, RR, SpO2: stable & adequate BP & HR: stable & adequate Hydration State: stable & adequate Neuraxial Anesthesia: was administered and sensory block is resolving Anesthetic Complications: no major complications apparent Epidural: Removed without complications and With tip intact
[2024-01-22] MEDS: DOCUSATE SODIUM 100 MG CAP PO SCH (21:13)
[2024-01-22] MEDS: IBUPROFEN 600 MG TAB PO PRN (21:13)
[2024-01-22] MEDS: BENZOCAINE 20% SPRY 85 APPLN/85 GM CAN EXT PRN (21:13)
[2024-01-23 06:23] LABS: Hematocrit (blood only) 31.4 % (37.0-47.0); Hemoglobin 10.6 g/dl (12.0-16.0); Mean Corpuscular Hemoglobin 30.4 pg (25.0-34.0); Mean Corpuscular Hgb Conc 33.8 g/dL (32.0-36.0); Mean Platelet Volume 9.4 fL (9.4-12.4); Platelet Count 217 K/uL (130-400); RDW Coefficient of Variation 14.4 % (11.5-14.5); RDW Standard Deviation 47.1 fL (36.4-46.3); Red Blood Count 3.49 M/uL (4.20-5.40); White Blood Count 11.89 K/ul (4.8-10.8)
[2024-01-23] MEDS: FERROUS SULFATE 325 MG TAB PO SCH (08:52)
[2024-01-23] MEDS: PRENATAL VITAMIN 1 TAB PO SCH (08:52)
--- NOTE | 2024-01-23 09:10 | Obstetrical Progress Note ---
Date of Service January 23, 2024 Subjective Ambulation: ambulating normally Voiding: no voiding problems Passing Gas:: Yes Diet Tolerance:: regular diet Lochia:: Small Feeding Type:: breast feeding Current Pain Level(1-10): 0 doing well Physical Exam Constitutional WD/WN, vitals as above Gastrointestinal (Abdomen) Inspection/Auscultation: abdomen normal to inspection abdomen soft and non-tender. fundus firm below U. Musculoskeletal Extremities: extremities normal to inspection Skin no rashes, warm and dry Neurologic patellar DTR's 2+ bilat, sensation intact Psychiatric A+Ox3, euthymic affect Results & Data Vital Signs (Past 12 Hours) Vital Signs Temp Pulse Resp BP Pulse Ox O2 Del Method 01/23/24 02:50 36.6 C 80 16 108/68 98 Room Air 01/22/24 23:29 36.7 C 86 18 118/77 98 Room Air Laboratory Results Laboratory Results - last 72 hr 01/22/24 01/22/24 01/22/24 07:34 07:34 07:34 WBC 11.20 H RBC 4.19 L Hgb 12.7 Hct 38.0 MCV 90.7 MCH 30.3 MCHC 33.4 RDW Std Deviation 47.0 H RDW Coeff of Valentin 14.3 Plt Count 255 MPV 9.1 L Blood Type B Positive Cancelled Antibody Screen NEGATIVE Cancelled 01/23/24 05:27 WBC 11.89 H RBC 3.49 L Hgb 10.6 L Hct 31.4 L MCV 90.0 MCH 30.4 MCHC 33.8 RDW Std Deviation 47.1 H RDW Coeff of Valentin 14.4 Plt Count 217 MPV 9.4 Blood Type Antibody Screen
[2024-01-23] MEDS: ESCITALOPRAM OXALATE 10 MG TAB PO SCH (10:51)
[2024-01-23] MEDS: bisacodyL 5 MG TABEC PO SCH (20:37)
[2024-01-23] MEDS: ACETAMINOPHEN 325 MG TAB PO PRN (20:38)
[2024-01-23] MEDS: DIPHTHER/TETAN/PERTUS Vaccine (Tdap, Adol/Adult) 0.5mL IM ONE (20:39)
[2024-01-23] MEDS: LIDOCAINE 2%/EPINEPHRINE 1:200,000 20 ML PF EPI STA (20:40)
[2024-01-23] MEDS: MEASLES, MUMPS & RUBELLA VIRUS VACCINE (MMR) 0.5ML VIAL SQ ONE (20:40)
[2024-01-23] MEDS: fentaNYL citrate PF 100 MCG/2 ML VIAL EPI STA (20:40)
[2024-01-23] MEDS: BUPIVACAINE 0.25% PF 30 ML VIAL EPI STA (20:40)
[2024-01-23] MEDS: SODIUM CHLORIDE 0.9% PF INJ 10 ML VIAL EPI STA (20:40)
[2024-01-24 08:09] LABS: Hematocrit (blood only) 37.3 % (37.0-47.0); Hemoglobin 12.1 g/dl (12.0-16.0)
--- NOTE | 2024-01-24 09:22 | Obstetrical Progress Note ---
Date of Service January 24, 2024 Assessment & Plan Admission and Anticipated Discharge Date Admission Date: January 22, 2024 Subjective Patient is seen and examined. She feels well, no complaints. Ambulating without dizziness Voiding without difficulty Tolerating regular diet with out N&V Bleeding is minimal No fever/ chills/ CP/ SOB/ N&V/ Leg pain Breast feeding without problems Vital Signs Temp Pulse Resp BP Pulse Ox O2 Del Method 01/23/24 23:25 36.5 C 71 18 111/77 98 Room Air 01/23/24 20:20 36.8 C 85 18 117/77 98 Room Air 01/23/24 15:50 36.6 C 89 16 110/73 98 Room Air 01/23/24 11:40 36.5 C 86 18 109/71 99 Room Air Lab Results 01/22/24 01/22/24 01/22/24 Range/Units 07:34 07:34 07:34 WBC 11.20 H (4.8-10.8) K/ul RBC 4.19 L (4.20-5.40) M/uL Hgb 12.7 (12.0-16.0) g/dl Hct 38.0 (37.0-47.0) % MCV 90.7 (80.0-100.0) fL MCH 30.3 (25.0-34.0) pg MCHC 33.4 (32.0-36.0) g/dL RDW Std Deviation 47.0 H (36.4-46.3) fL RDW Coeff of Valentin 14.3 (11.5-14.5) % Plt Count 255 (130-400) K/uL MPV 9.1 L (9.4-12.4) fL Blood Type B Positive Cancelled Antibody Screen NEGATIVE Cancelled 01/23/24 01/24/24 Range/Units 05:27 07:13 WBC 11.89 H (4.8-10.8) K/ul RBC 3.49 L (4.20-5.40) M/uL Hgb 10.6 L 12.1 (12.0-16.0) g/dl Hct 31.4 L 37.3 (37.0-47.0) % MCV 90.0 (80.0-100.0) fL MCH 30.4 (25.0-34.0) pg MCHC 33.8 (32.0-36.0) g/dL RDW Std Deviation 47.1 H (36.4-46.3) fL RDW Coeff of Valentin 14.4 (11.5-14.5) % Plt Count 217 (130-400) K/uL MPV 9.4 (9.4-12.4) fL Blood Type Antibody Screen PE: General: Alert, orientedx3, NAD Abd: soft, NT, fundus firm, below Umbilicus Perineum intact, Lochia rubra minimal Ext; NT, no edema AP: 38 yo s/p , ppd# 2 VSS Afebrile doing well Continue routine care All questions were answered D/C home, f/u in office Results & Data Vital Signs (Past 12 Hours) Vital Signs Temp Pulse Resp BP Pulse Ox O2 Del Method 01/23/24 23:25 36.5 C 71 18 111/77 98 Room Air
== END 2024-01-24 12:40 | disposition home or self-care (01) | DRG 807 ==
LOC: OPB 06:49 → 4S1 06:52 → 4E2 21:15